=== PATIENT | male | born 1960 | race Caucasian/White ===

== ENCOUNTER → 2018-08-06 10:33 | Outpatient (CLI) | payer MEDICAID, SELFPAY ==
--- NOTE | 2018-08-06 13:39 | PFTCOMP ---
COMPLETE PULMONARY FUNCTION TEST INTERPRETATION Brief HPI: Patient is a 58 year old male, currently under the care of Laly Samaniego, who presents to [facility] for complete pulmonary function tests secondary to diagnosis of dyspnea. Respiratory therapist reports good effort and reproducible results. Interpretation: Forced expiration spirometry shows no large airways obstructive ventilatory defect with an FEV1 of 33% predicted. There is no significant bronchodilator response by strict ATS criteria. Spirograms are of good quality and plateau slowly, indicating slowly emptying areas of the lungs. The respiratory flow volume loop shows a normal pattern. Lung volumes by body plethysmography show a decreased total lung capacity at 4.31 L, 64% predicted. FRC and RV are elevated out of proportion. Lung volume measurements are consistent with air-trapping. Diffusion capacity by carbon monoxide is decreased at 55% predicted. The airway resistance is elevated. Compared to previous pulmonary function tests from 07/24/2017, there has been a significant improvement in spirometry. Impression: Very severe mixed ventilatory defect with a symmetric reduction diffusing capacity. There has been improvement compared to previous testing.
--- NOTE | 2018-08-06 13:44 | PFTCOMP_ITS ---
COMPLETE PULMONARY FUNCTION TEST INTERPRETATION Brief HPI: Patient is a 58 year old male, currently under the care of Laly Samaniego, who presents to [facility] for complete pulmonary function tests secondary to diagnosis of dyspnea. Respiratory therapist reports good effort and reproducible results. Interpretation: Forced expiration spirometry shows no large airways obstructive ventilatory defect with an FEV1 of 33% predicted. There is no significant bronchodilator response by strict ATS criteria. Spirograms are of good quality and plateau slowly, indicating slowly emptying areas of the lungs. The respiratory flow volume loop shows a normal pattern. Lung volumes by body plethysmography show a decreased total lung capacity at 4.31 L, 64% predicted. FRC and RV are elevated out of proportion. Lung volume measurements are consistent with air-trapping. Diffusion capacity by carbon monoxide is decreased at 55% predicted. The airway resistance is elevated. Compared to previous pulmonary function tests from 07/24/2017, there has been a significant improvement in spirometry. Impression: Very severe mixed ventilatory defect with a symmetric reduction diffusing capacity. There has been improvement compared to previous testing.
== END ==
PROVIDERS: Family Provider Family Medicine; PCP Family Medicine; Referring Provider Nurse Practitioner Acute Care; Visit Provider Nurse Practitioner Acute Care
DX: J44.9 Chronic obstructive pulmonary disease, unspecified (principal)
CPT/HCPCS: 94060; 94726; 94729

== ENCOUNTER → 2018-10-14 09:53 | Outpatient (CLI) | payer MEDICAID, SELFPAY ==
[2018-08-26 10:46] VITALS: BMI 28.4
--- NOTE | 2018-10-14 09:58 | VDLE_ITS ---
Reason For Study: BLE pain swelling L>R RIGHT LEFT CFV is compressible, spontaneous, phasic, CFV is compressible, spontaneous, phasic, competent and demonstrates normal competent, and demonstrates normal augmentation. augmentation. FV is compressible, spontaneous, phasic, FV is compressible, spontaneous, phasic, competent and demonstrates normal competent and demonstrates normal augmentation. augmentation. POP V is compressible, spontaneous, phasic, POP V is compressible, spontaneous, phasic, competent and demonstrates normal competent and demonstrates normal augmentation. augmentation. T/P Trunk is compressible. T/P Trunk is compressible. PTV is compressible. PTV is compressible. RT PerV is compressible. LT PerV is compressible. SFJ is competent. SFJ is competent. GSV is competent. GSV above the knee is competent; GSv below SSV is small; appears competent. knee is incompetent for > .5 seconds w/diameter of 0.21 x 0.28 cm. SSV is competent. Interpretation Summary 1. Bilateral no DVT or SVT. 2. Left below knee GSV small at 2.8mm with reflux. Ordering Physician: Javi Hidalgo Referring Physician: Moses Noonan Performed By: Molly Champagne RDCS, RVT
== END ==
PROVIDERS: Family Provider Family Medicine; PCP Family Medicine; Referring Provider Surgery Vascular Surgery; Visit Provider Surgery Vascular Surgery
DX: M79.89 Other specified soft tissue disorders (principal); M79.605 Pain in left leg; M79.604 Pain in right leg
CPT/HCPCS: 93970

== ENCOUNTER → 2019-02-24 | Outpatient (CLI) | payer MEDICARE, MEDICAID, SELFPAY ==
[2018-11-21 08:05] VITALS: BMI 28.4
--- NOTE | 2019-02-24 09:43 | VDLE_ITS ---
Reason For Study: Chronic Venous Insufficiency RIGHT LEFT CFV is compressible, spontaneous, phasic, CFV is compressible, spontaneous, phasic, competent and demonstrates normal competent, and demonstrates normal augmentation. augmentation. FV is compressible, spontaneous, phasic, FV is compressible, spontaneous, phasic, competent and demonstrates normal competent and demonstrates normal augmentation. augmentation. POP V is compressible, spontaneous, phasic, POP V is compressible, spontaneous, phasic, competent and demonstrates normal competent and demonstrates normal augmentation. augmentation. T/P Trunk is compressible. T/P Trunk is compressible. PTV is compressible. PTV is compressible. RT PerV is compressible. LT PerV is compressible. Rt SFJ is Competent Lt SFJ is Competent Rt GSV is Incompetent with reflux greater Lt GSV is Incompetent with reflux greater than 0.5 sec and measures 0.27cm x 0.32cm in than 0.5 sec and a diameter of 0.56cm x the thigh and 0.26cm x 0.30cm in the calf 0.52cm in the thigh and 0.29cm x 0.42cm in the calf Rt SSV is Competent Lt SSV is Competent Thickened vein raymond noted Rt GSV and Rt SSV Thickened vein raymond noted Lt GSV and Lt SSV Rt SSV distal mislabeled as CFV (Images 35 and 36). Lt SSV mislabeled as GSV (Images 67-73). Procedure Exam performed in department. A preliminary report was called and/or faxed to Dr. Hidalgo. Interpretation Summary 1. Bilateral no DVT. 2. Right GSV reflux 3.2mm. 3. Left GSV reflux 5.6mm. 4. Bilateral GSV and bilateral LSV thickened. Ordering Physician: Javi Hidalgo Referring Physician: Moses Noonan Performed By: Elaine Layton, CESILIA, RVT
== END | disposition home or self-care (01) ==
LOC: CVS 09:39
PROVIDERS: Family Provider Family Medicine; PCP Family Medicine; Referring Provider Surgery Vascular Surgery; Visit Provider Surgery Vascular Surgery
DX: M79.89 Other specified soft tissue disorders (principal); M79.604 Pain in right leg; M79.605 Pain in left leg
CPT/HCPCS: 93970

== ENCOUNTER → 2019-07-14 | Outpatient (CLI) | payer MEDICARE, MEDICAID, SELFPAY ==
[2018-11-21 08:05] VITALS: BMI 28.4
[2019-05-21 10:53] VITALS: BMI 28.4
[2019-07-14 09:23] VITALS: PULSE 63; PULSE 68; PULSE 78; PULSE 85; PULSE 87; PULSE 88; O2SAT 93; O2SAT 94; O2SAT 95; O2SAT 96
--- NOTE | 2019-07-14 13:41 | PCM.PSN.6M ---
PSN 6 Minute Walk Test - 6 Minute Walk Test 6 Minute Walk Test: 6 Minute Walk Test PSN:6-Minute Walk Test Start: 07/14/19 09:23 Freq: Status: Active Protocol: RESP.6MINW Document 07/14/19 09:23 MICHELLE (Rec: 07/14/19 09:25 MICHELLE [id number]) 6 Minute Walk Test Date Performed 07/14/19 Time Performed 09:10 Height 5 ft 9 in Weight: 193 lb Weight in Pounds 193.[address]: Robert Wiggins Assistive device used: None Pre-test Oxygen Delivery Method Room Air Pulse Ox (%) 94 Pulse Rate (60-100 beats/min) 63 Dyspnea Avtar Scale (0-10) 0 Exertion Avtar Scale (6-20) 6 1st minute Oxygen Delivery Method Room Air Pulse Ox (%) 95 Pulse Rate (60-100 beats/min) 78 2nd minute Oxygen Delivery Method Room Air Pulse Ox (%) 93 Pulse Rate (60-100 beats/min) 85 3rd minute Oxygen Delivery Method Room Air Pulse Ox (%) 93 Pulse Rate (60-100 beats/min) 85 4th minute Oxygen Delivery Method Room Air Pulse Ox (%) 93 Pulse Rate (60-100 beats/min) 88 5th minute Oxygen Delivery Method Room Air Pulse Ox (%) 94 Pulse Rate (60-100 beats/min) 88 6th minute Oxygen Delivery Method Room Air Pulse Ox (%) 95 Pulse Rate (60-100 beats/min) 87 Dyspnea Avtar Scale (0-10) 0 Exertion Avtar Scale (6-20) 12 Post-test Oxygen Delivery Method Room Air Pulse Ox (%) 96 Pulse Rate (60-100 beats/min) 68 Full Laps Walked 15 Partial Lap, Number of Tiles Walked 10 Total Distance Walked (ft) 895 - Interpretation Interpretation: The patient ambulated 895 feet over the course of 6 minutes beginning on room air without assistive devices or breaks. Pretesting oxygen saturation was noted to be 94% on room air. With ambulation, the cornell oxygen saturation was 93%. There was no significant exertional oxygen desaturation. - Recommendations Recommendations: There is no indication for the use of supplemental oxygen at this time.
== END | disposition home or self-care (01) ==
LOC: PSN 09:00
PROVIDERS: Family Provider Family Medicine; PCP Family Medicine; Referring Provider Internal Medicine Critical Care Medicine; Visit Provider Internal Medicine Critical Care Medicine
DX: J44.9 Chronic obstructive pulmonary disease, unspecified (principal)
CPT/HCPCS: 94618

== ENCOUNTER → 2019-07-15 | Outpatient (CLI) | payer MEDICARE, MEDICAID, SELFPAY ==
[2018-11-21 08:05] VITALS: BMI 28.4
[2019-05-21 10:53] VITALS: BMI 28.4
--- NOTE | 2019-07-16 09:35 | PFT ---
INTRODUCTION: The patient is a 59-year-old male that presents for pulmonary function studies secondary to a diagnosis of COPD. Respiratory therapy reports good patient effort. Bronchodilators were used during testing. INTERPRETATION: Forced expiration spirometry demonstrates the presence of a moderately severe large airways obstructive ventilatory defect. There was no significant response to aerosolized bronchodilators. Spirograms are of fair quality and do not plateau indicating slow emptying of the lungs. Body plethysmography was performed and reveals lung volumes to be within normal limits. Diffusing capacity by single breath CO is reduced at 62% of predicted. IMPRESSION: Irreversible moderately severe large airways obstructive ventilatory defect with preserved lung volumes and mild reduction in diffusing capacity. There has been improvement in the patient's pulmonary function study since they were last completed in July 2018.
== END | disposition home or self-care (01) ==
LOC: PSN 09:12
PROVIDERS: Family Provider Family Medicine; PCP Family Medicine; Referring Provider Internal Medicine Critical Care Medicine; Visit Provider Internal Medicine Critical Care Medicine
DX: J44.9 Chronic obstructive pulmonary disease, unspecified (principal)
CPT/HCPCS: 94060; 94726; 94729

== ENCOUNTER → 2020-03-23 | Outpatient (CLI) | payer MEDICARE, MEDICAID, SELFPAY ==
[2019-07-18 09:06] VITALS: BMI 31.0
== END | disposition home or self-care (01) ==
PROVIDERS: PCP Family Medicine; Referring Provider Nurse Practitioner Acute Care; Visit Provider Nurse Practitioner Acute Care
DX: R05 Cough (principal)
CPT/HCPCS: 87635; G2023; U0003

== ENCOUNTER → 2020-07-19 | Outpatient (CLI) | payer MEDICARE, MEDICAID, SELFPAY ==
[2020-07-19 11:31] VITALS: BMI 33.2
== END | disposition home or self-care (01) ==
LOC: LABSPEC 12:56
PROVIDERS: PCP Family Medicine; Referring Provider Nurse Practitioner Acute Care; Visit Provider Nurse Practitioner Acute Care
DX: F17.210 Nicotine dependence, cigarettes, uncomplicated (principal)
CPT/HCPCS: 87070; 87205

== ENCOUNTER → 2020-07-23 | Outpatient (CLI) | payer MEDICARE, MEDICAID, SELFPAY ==
[2020-07-19 11:31] VITALS: BMI 33.2
--- NOTE | 2020-07-23 15:00 | CT_ITS ---
STUDY: LOW DOSE CT LUNG CANCER SCREENING REASON FOR EXAM: Male, 60 years old. SMOKER X 30 PLUS YEARS. 1-2 PACKS A DAY RADIATION DOSAGE (If Supplied By Facility): CTDIvol = ( 4.02 ) mGy, DLP = ( 129.38 ) mGycm TECHNIQUE: No contrast was administered. Low dose technique was utilized (average mAS-38 and kVp 120). 1.25 mm axial source images with a slice interval of 1.25-mm were reconstructed in lung windows. 2.5 mm axial source images with a slice interval of 2.5-mm were reconstructed in lung windows. 5.0 mm axial source images with a slice interval of 5.0-mm were reconstructed in soft tissue windows. Nodule measured using lung windows on PACS and/or independent workstation with automated measurement of minimum and maximum diameter. Nodule measurement reported as average diameter rounded to the nearest whole number. Growth is defined as an increase ins size of greater than 1.5 mm. COMPARISON: 15 June 2017, May 19 2017, December 08 2016, May 10 2016, April 26 2016 Findings: There are small bilateral pleural effusions and right lower lobe consolidation, similar to prior, likely chronic fibrotic atelectasis. There is similar elongated peripheral subpleural right upper lobe chronic atelectatic opacity. There are no focal high risk findings. Central airways are patent. Mediastinal contents are suboptimally evaluated due to screening CT technique. Coronary arteries are severely diseased. Osseous structures are intact. There is compression fracture of T12 with anterior wedging deformity. This is not sufficiently well evaluated for chronologic staging. CT/Low Dose CT Lung Screening IMPRESSION: 1. No high risk pulmonary nodules. Lung RADS category 2. 2. Bilateral presumably chronic pleural effusions, chronic right basal consolidation, possibly atelectasis. 3. Recommend a diagnostic CT chest with IV contrast for more definitive evaluation given presence of intrathoracic disease. Screening exams are only sufficient for evaluation of chronically stable asymptomatic patients. 4. Severe coronary artery disease. 5. T12 compression fracture, unknown age. Refer to diagnostic imaging. IMPORTANT NOTES FOR USE: ACR Lung-RADS Version 1.0 Assessment Categories Release Date: February 02, 2014 Category: Coded 0-4 bases on nodule(s) with highest degree of suspicion. Negative screen is defined as categories 1 and 2; a positive screen is defined as categories 3 and 4. Category 3 and 4A nodules that are unchanged on interval CT should be coded as category 2, and individuals returned to screening in 12 months. Category 4X: Category 3 or 4 nodules with additional imaging findings that increase the suspicion of lung cancer, such as spiculation, GGN that doubles in size in 1 year, enlarged lymph notes, etc. Category Modifiers: S (significant finding unrelated to lung cancer) and C (prior history of treated lung cancer) may be added to the 0-4 Lung-RADS Electronically Signed: Emani Hope, at 16:17 EDT Tel , Service support ,
== END | disposition home or self-care (01) ==
LOC: CT 14:35
PROVIDERS: PCP Family Medicine; Referring Provider Nurse Practitioner Acute Care; Visit Provider Nurse Practitioner Acute Care
DX: F17.210 Nicotine dependence, cigarettes, uncomplicated (principal); Z12.2 Encounter for screening for malignant neoplasm of respiratory organs
CPT/HCPCS: G0297

== ENCOUNTER → 2020-07-28 | Outpatient (CLI) | payer MEDICARE, MEDICAID, SELFPAY ==
[2020-07-19 11:31] VITALS: BMI 33.2
--- NOTE | 2020-07-28 09:44 | MRI_ITS ---
STUDY: MRI LUMBAR SPINE WITHOUT CONTRAST REASON FOR EXAM: Male, 60 years old. Back pain spondylosis, pain with walking and standing TECHNIQUE: Standardized fat and water weighted pulse sequences were obtained in the sagittal and axial planes. COMPARISON: None FINDINGS: There is a chronic T12 fragmentation/compression fracture with anterior wedging deformity and ventral vertebra planum with approximately 50% loss of height dorsally. Posterior cortex is intact without retropulsion. There are expected age-related disc and endplate degenerative changes. Thoracal lumbar spine is aligned. Lumbar spine is intact. Diffuse marrow, paraspinous soft tissues and SI joints are normal. BMI is elevated. Conus medullaris terminates at T12-L1 with normal cauda equina and patent thecal sac. Lateral recesses are patent. There are bilateral multilevel mild foraminal stenoses. MRI/Spine Lumbar (Routine) IMPRESSION: 1. Chronic T12 compression fracture without canal compression. 2. Intact lumbar spine. 3. Patent Canal, no neural compression. 4. Expected mild age-related change. Electronically Signed: Brittanykristen Jayy, at 13:22 EDT Tel , Service support ,
== END | disposition home or self-care (01) ==
LOC: MRI 09:29
PROVIDERS: PCP Family Medicine; Referring Provider Anesthesiology Pain Medicine; Visit Provider Anesthesiology Pain Medicine
DX: M51.37 Other intervertebral disc degeneration, lumbosacral region (principal); M47.817 Spondylosis without myelopathy or radiculopathy, lumbosacral region; M54.9 Dorsalgia, unspecified
CPT/HCPCS: 72148

== ENCOUNTER → 2020-08-03 | Outpatient (CLI) | payer MEDICARE, MEDICAID, SELFPAY ==
[2020-08-03 13:35] VITALS: BMI 33.3
[2020-08-03 15:48] LABS: Absolute Lymphocyte Count 0.85 X10^3/uL (0.83-4.51); Absolute Neutrophil Count 7.7 X10^3/uL (2.0-7.7); Basophil# 0.04 X10^3/uL; Basophil% 0.4 % (0-1); Eosinophil# 0.07 X10^3/uL; Eosinophils% 0.8 % (0-5); Hematocrit 54.7 % (40-54); Hemoglobin 16.9 g/dL (13.0-16.5); Lymphocyte # 0.85 X10^3/ul (4.0); Lymphocyte % 9.3 % (19-41); Mean Corp Hgb Conc 30.9 g/dL (32-36); Mean Corpuscular Hgb 28.8 pg (27.0-32.0); Mean Corpuscular Volume 93.2 fL (80-94); Mean Platelet Vol. 10.4 fl (6.2-12.0); Monocyte# 0.44 X10^3/uL; Monocyte% 4.8 % (0-10); NRBC Flagged by Analyzer 0 % (0-5); Neutrophil # 7.71 X10^3/uL (2.7-7.7); Neutrophil % 84.3 % (47-70); Platelet Count 176 K/mm3 (150-450); RBC Distribution Width CV 13.4 % (11.6-14.6); RBC Distribution Width SD 46.3 fl (35.1-43.9); Red Blood Count 5.87 M/mm3 (4.6-6.2); White Blood Count 9.2 K/mm3 (4.4-11.0)
[2020-08-03 15:56] LABS: Prothrombin Time (Protime)PT. 12.6 SECONDS (11.7-14.9)
[2020-08-03 16:28] LABS: AST(SGOT) 14 U/L (15-37); Alanine Aminotransfer ALT/SGPT 21 U/L (16-61); Albumin, Serum 3.5 g/dL (3.2-5.0); Alkaline Phosphatase 65 U/L (45-117); Anion Gap 3 (5-15); BUN 16 mg/dL (7-18); BUN/Creat Ratio 21.6 RATIO (10-20); Calcium,Total 8.8 mg/dL (8.5-10.1); Chloride 102 mmol/L (98-107); Creatinine, Serum 0.74 mg/dL (0.70-1.30); EST Glomerular Filtration Rate 115 mL/min (>60); Est Glom Filt Rate - Afr Amer 139 mL/min (>60); Globulin 3.6 g/dL (2.2-4.2); Glucose 97 mg/dL (74-106); Potassium 4.4 mmol/L (3.5-5.1); Protein, Total 7.1 g/dL (6.4-8.2); Sodium Level 138 mmol/L (136-145)
== END | disposition home or self-care (01) ==
LOC: LAB 14:58
PROVIDERS: PCP Family Medicine; Visit Provider Specialist
DX: I10 Essential (primary) hypertension (principal); J90 Pleural effusion, not elsewhere classified; R94.39 Abnormal result of other cardiovascular function study
CPT/HCPCS: 36415; 80053; 85025; 85610

== ENCOUNTER 2020-08-05 07:12 | Day surgery (SDC) | payer MEDICARE, MEDICAID, SELFPAY ==
[2020-08-03 13:35] VITALS: BMI 33.3
[2020-08-04 09:43] VITALS: BMI 33.3
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
--- NOTE | 2020-08-05 10:45 | CL.D_ITS ---
Patient Name: KELVIN ROBLES Study Date: 08/05/2020 Performing: Macario Edmondson MD Ht: 68.89 inches 175 cm : 1960 Wt: 227.08 lbs 103 kg Age: 60 Gender: male BSA: 2.18 PROCEDURE(S) PERFORMED RM85-PWK/COR/LV CLINICAL PROFILE AND INDICATIONS Indications: Worsening Angina Heart Failure: None Stress/Imaging Stress Test w/SPECT MPI: Yes Result: Positive Intermediate RiskStress Test with SP ECT MPI: Positive Intermediate Risk CAD Presentations: Unstable angina. CONCLUSIONS No significant angiographic CAD. Preserved EF. No significant or MR RECOMMENDATIONS DESCRIPTION OF PROCEDURE The patient arrived to the procedure lab. The risks and benefits of the procedure as well as a full d escription of our services here and current unavailability of surgical backup were fully explained to the patient and/or their significant other prior to the catheterization. The Timeout was completed, verifying the correct patient and procedure. The patient's procedural site was prepped and draped in the usual fashion. Local anesthetic was given subcutaneously to right radial region with Lidocaine 2% . Using a modified Seldinger technique, arterial access was obtained via the right radial artery, a 6 Fr sheath was inserted. Left Coronary Artery selective angiography was performed in multiple views u sing a 5 Fr. FL3.5 catheter. Left Ventriculography was performed in [place] projection using a 5 Fr. FR4. Right Coronary Artery selective angiography was then performed in multiple views using a 5 Fr. FR 4 catheter.The arterial sheath was pulled and a TR Band was applied for hemostasis w/ 12ml air CORONARY ANGIOGRAPHY DOMINANCE: Right Dominant LEFT HEART ASSESSMENT Left Ventricular Ejection Fraction: by LV Gram 55 % Normal LV wall motion LEFT MAIN: No significant disease noted LEFT ANTERIOR DESCENDING ARTERY: No significant disease noted CIRCUMFLEX ARTERY: No significant disease noted RIGHT CORONARY ARTERY: No significant disease noted VALVE FINDINGS: No Aortic Valve Stenosis No Mitral Insufficiency COMPLICATIONS No Complications PROCEDURE MEDICATIONS Versed 1 mg IV Fentanyl 50 mcg IV Versed 1 mg IV Oxygen: 2 L/min via nasal cannula Heparin given IA 08/05/2020 09:09:00 Verapamil 2.5mg, Ntg 100mcgs, 3000 units of Heparin given IA 08/05/2020 09:09:00 SUMMARY OF HEMODYNAMIC DATA Time AIR REST ECG 08:51:23 AO 99/61 (78) SA 09:12:00 LV 132/-3, 13 09:19:55 LV 132/-2, 12 09:20:01 LV 124/-6, 10 09:21:14 LVp 134/3, 15 09:21:47 AOp 125/71 (91) 09:21:52 Signed By Macario Edmondson MD On 08/05/2020 10:44:49 Macario Edmondson MD
== END 2020-08-05 11:30 | disposition home or self-care (01) ==
PROVIDERS: PCP Family Medicine; Referring Provider Specialist; Visit Provider Specialist
DX: I20.0 Unstable angina (principal); R07.9 Chest pain, unspecified; R94.39 Abnormal result of other cardiovascular function study; I10 Essential (primary) hypertension; J44.9 Chronic obstructive pulmonary disease, unspecified; K21.9 Gastro-esophageal reflux disease without esophagitis; Z79.51 Long term (current) use of inhaled steroids; Z79.82 Long term (current) use of aspirin; Z79.899 Other long term (current) drug therapy; Z87.891 Personal history of nicotine dependence
CPT/HCPCS: 93458; 99152; 99153; J7040; Q9967; C1769; C1894

== ENCOUNTER → 2020-09-16 09:45 | Outpatient (CLI) | payer MEDICARE, MEDICAID, SELFPAY ==
[2020-09-08 14:09] VITALS: BMI 34.1
--- NOTE | 2020-09-16 09:46 | ART_ITS ---
Reason For Study: atherosclerosis Procedure A bilateral lower extremity continuous wave Doppler with analog waveform analysis and ankle brachial indexes. Left Segmental Pressures Left brachial= 138mmHg. Left posterior tibial artery = 85mmHg. Left dorsalis pedis artery = 67mmHg. The left dorsalis pedis waveforms are monophasic. The left posterior tibial artery waveforms are monophasic. Right Segmental Pressures Right brachial= 140mmHg. Right posterior tibial artery = 103mmHg. Right dorsalis pedis artery = 90mmHg. The right dorsalis pedis waveforms are monophasic. The right posterior tibial artery waveforms are monophasic. Indices The right ankle brachial index by the dorsalis pedis is .64. The right ankle brachial index by the posterior tibial artery is .74. The left ankle brachial index by the posterior tibial artery is .61. The left ankle brachial index by the dorsalis pedis is .48. Interpretation Summary Bilateral moderate disease eith JOI right 0.74 and left 0.61 with both biphasic flow. Ordering Physician: Javi Hidalgo Performed By: Molina English RVT and Student
== END ==
PROVIDERS: PCP Family Medicine; Referring Provider Surgery Vascular Surgery; Visit Provider Surgery Vascular Surgery
DX: I70.213 Atherosclerosis of native arteries of extremities with intermittent claudication, bilateral legs (principal); I83.893 Varicose veins of bilateral lower extremities with other complications; G62.9 Polyneuropathy, unspecified; M79.89 Other specified soft tissue disorders; M79.609 Pain in unspecified limb
CPT/HCPCS: 93922

== ENCOUNTER → 2021-04-05 10:40 | Outpatient (CLI) | payer MEDICARE, MEDICAID, SELFPAY ==
[2021-02-10 09:39] VITALS: BMI 36.3
--- NOTE | 2021-04-06 09:39 | PFT ---
INTRODUCTION: The patient is a 60-year-old male that presents for pulmonary function studies secondary to a diagnosis of COPD. Respiratory therapy reported good patient effort. Bronchodilators were used during testing. INTERPRETATION: Forced expiration spirometry demonstrates the presence of a severe large airways obstructive ventilatory defect. There was no significant response to aerosolized bronchodilators. Spirograms are of good quality and plateau gradually indicating slow emptying of the lungs. Body plethysmography was performed and revealed a decreased TLC to 3.81 L, 61% of predicted, indicative of a moderate restrictive ventilatory impairment. The remainder of the lung volumes are symmetrically reduced. Diffusing capacity by single breath CO is reduced to 51% of predicted. IMPRESSION: Irreversible severe mixed ventilatory defect with symmetric reduction in diffusing capacity.
== END ==
PROVIDERS: PCP Family Medicine; Referring Provider Internal Medicine Critical Care Medicine; Visit Provider Internal Medicine Critical Care Medicine
DX: J44.9 Chronic obstructive pulmonary disease, unspecified (principal)
CPT/HCPCS: 94060; 94726; 94729

== ENCOUNTER → 2021-04-15 12:16 | Outpatient (CLI) | payer MEDICARE, MEDICAID, SELFPAY ==
[2021-02-10 09:39] VITALS: BMI 36.3
[2021-04-15 12:51] VITALS: PULSE 103; PULSE 106; PULSE 108; PULSE 112; PULSE 114; PULSE 74; PULSE 86; O2SAT 85; O2SAT 86; O2SAT 89; O2SAT 92; O2SAT 93; O2SAT 96
--- NOTE | 2021-04-15 12:54 | CPS ---
Patient states that he wears oxygen at night. He has a concentrator and tanks at home but does not wear oxygen during the day. He also has a pulse oximeter at home and will periodically check his SpO2. Started walk on room air, SpO2 93-95%. At the 3rd minute SpO2 85%, stopped patient at this time to place on 2 lpm O2 but patient did not want to wear the oxygen since his SpO2 started climbing back towards normal. I explained to the patient the importance of wearing it so his SpO2 does not drop below 89% but he wanted to continue walking on room air as his SpO2 was now 96%. At about 5.5 minutes SpO2 87% and was 86% at the end of the 6 minutes. Patient did recover quickly but was once again explained the importance of preventing his SpO2 to drop.
--- NOTE | 2021-04-15 15:24 | WT_ITS ---
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 Assistive device used: None Pre-test Oxygen Delivery Method Room Air Pulse Ox (%) 93 Pulse Rate (60-100 beats/min) 74 Dyspnea Avtar Scale (0-10) 2 Exertion Avtar Scale (6-20) 6 1st minute Oxygen Delivery Method Room Air Pulse Ox (%) 93 Pulse Rate (60-100 beats/min) 103 H 2nd minute Oxygen Delivery Method Room Air Pulse Ox (%) 89 Pulse Rate (60-100 beats/min) 106 H 3rd minute Oxygen Delivery Method Room Air Pulse Ox (%) 85 Pulse Rate (60-100 beats/min) 112 H 4th minute Oxygen Delivery Method Room Air Pulse Ox (%) 92 Pulse Rate (60-100 beats/min) 108 H 5th minute Oxygen Delivery Method Room Air Pulse Ox (%) 89 Pulse Rate (60-100 beats/min) 112 H 6th minute Oxygen Delivery Method Room Air Pulse Ox (%) 86 Pulse Rate (60-100 beats/min) 114 H Dyspnea Avtar Scale (0-10) 4 Exertion Avtar Scale (6-20) 13 Post-test Oxygen Delivery Method Room Air Pulse Ox (%) 96 Pulse Rate (60-100 beats/min) 86 Full Laps Walked 13 Partial Lap, Number of Tiles Walked 15 Total Distance Walked (ft) 782 04/15/21 12:54 Cardiopulmonary Services by Ivet Grossman Patient states that he wears oxygen at night. He has a concentrator and tanks at home but does not wear oxygen during the day. He also has a pulse oximeter at home and will periodically check his SpO2. Started walk on room air, SpO2 93- 95%. At the 3rd minute SpO2 85%, stopped patient at this time to place on 2 lpm O2 but patient did not want to wear the oxygen since his SpO2 started climbing back towards normal. I explained to the patient the importance of wearing it so his SpO2 does not drop below 89% but he wanted to continue walking on room air as his SpO2 was now 96%. At about 5.5 minutes SpO2 87% and was 86% at the end of the 6 minutes. Patient did recover quickly but was once again explained the importance of preventing his SpO2 to drop. Initialized on 04/15/21 12:54 - END OF NOTE Interpretation Interpretation: The patient was noted to be 93% on room air at rest. The patient did desaturate to 85% in the third minute of ambulation, but refused supplemental oxygen. Patient did improve to 96% after a brief break, but once again desaturated to 86% by the 6-minute keegan. In total, the patient traveled 782 feet over the course of 6 minutes on room air with no assistive devices, but 1 break. These findings are consistent with a respiratory limitation exercise tolerance. Recommendations Recommendations: Patient requires no supplemental oxygen at rest, but should be using at least 2 L nasal cannula with exertion.
== END ==
PROVIDERS: PCP Family Medicine; Referring Provider Internal Medicine Critical Care Medicine; Visit Provider Internal Medicine Critical Care Medicine
DX: J44.9 Chronic obstructive pulmonary disease, unspecified (principal)
CPT/HCPCS: 94618

== ENCOUNTER → 2022-06-09 | Outpatient (CLI) | payer MEDICARE, MEDICAID, SELFPAY ==
--- NOTE | 2022-06-09 09:59 | RAD_ITS ---
STUDY: X-RAY CHEST REASON FOR EXAM: Male, 61 years old. MCCORMICK TECHNIQUE: PA and lateral views of the chest. COMPARISON: Comparison is made with prior study dated 10/04/2017. FINDINGS: Hyperinflation. Progressive pleural parenchymal changes at the right lung base as compared to prior study. Stable blunting of the left cosmetic angle with increased markings at the left lung base suggestive of scarring. Normal size heart. Normal mediastinum and kacey. Normal visualized pulmonary arteries. There is atherosclerotic calcification of the aortic arch with tortuosity. There are diffuse degenerative changes of the visualized thoracic spine. Increased kyphosis healed right rib fractures. There is no demonstrated abnormality of the visualized soft tissue structures of the upper abdomen. RAD/Chest PA and Lateral IMPRESSION: Progressive pleural parenchymal changes at the right lung base as compared to prior study. Electronically Signed: Lc Boucher MD at 10:43 EDT ,
[2022-06-09 11:37] LABS: Absolute Lymphocyte Count 1.26 X10^3/uL (0.83-4.51); Absolute Neutrophil Count 5.7 X10^3/uL (2.0-7.7); Basophil# 0.08 X10^3/uL; Eosinophil# 0.27 X10^3/uL; Eosinophils% 3.4 % (0-5); Hemoglobin 16.1 g/dL (13.0-16.5); Lymphocyte # 1.26 X10^3/ul (0.83-4.51); Lymphocyte % 16.1 % (19-41); Mean Corp Hgb Conc 31.6 g/dL (32-36); Mean Corpuscular Hgb 29.5 pg (27.0-32.0); Mean Corpuscular Volume 93.6 fL (80-94); Mean Platelet Vol. 10.3 fl (6.2-12.0); Monocyte# 0.52 X10^3/uL; Monocyte% 6.6 % (0-10); NRBC Flagged by Analyzer 0 % (0-5); Neutrophil # 5.68 X10^3/uL (2.7-7.7); Neutrophil % 72.4 % (47-70); Platelet Count 201 K/mm3 (150-450); RBC Distribution Width CV 12.5 % (11.6-14.6); RBC Distribution Width SD 42.6 fl (35.1-43.9); Red Blood Count 5.45 M/mm3 (4.6-6.2); White Blood Count 7.9 K/mm3 (4.4-11.0)
[2022-06-09 12:06] LABS: Anion Gap 4 (5-15); BUN 11 mg/dL (7-18); BUN/Creat Ratio 14.8 RATIO (10-20); Chloride 99 mmol/L (98-107); Creatinine, Serum 0.74 mg/dL (0.70-1.30); EST Glomerular Filtration Rate 114 mL/min (>60); Est Glom Filt Rate - Afr Amer 138 mL/min (>60); Glucose 95 mg/dL (74-106); Potassium 4.4 mmol/L (3.5-5.1); Sodium Level 140 mmol/L (136-145)
[2022-06-09 12:08] LABS: BNP,B-Type NATRIURETIC PEPTIDE 28.4 pg/mL (0-100)
== END | disposition home or self-care (01) ==
PROVIDERS: PCP Student in an Organized Health Care Education/Training Program; Referring Provider Nurse Practitioner Gerontology; Visit Provider Nurse Practitioner Gerontology
DX: R06.00 Dyspnea, unspecified (principal)
CPT/HCPCS: 36415; 71046; 80048; 83880; 85025

== ENCOUNTER → 2022-06-28 | Outpatient (CLI) | payer MEDICARE, MEDICAID, SELFPAY ==
--- NOTE | 2022-06-28 08:02 | ECHOCS_ITS ---
Reason For Study: Dyspnea/SOB Procedure This was a 2D Doppler, Color Flow transthoracic echocardiogram. Very technically difficult study, contrast injection performed. Patient needed to be sitting up for testing due to SOB. Limited views obtained. The study was technically difficult. Contrast injection was performed. Exam performed in department. Left Ventricle Based upon the contrast enhanced images obtained there appears to be grossly normal left ventricular size, wall motion, and systolic function. The estimated ejection fraction is 55 %. Unable to assess diastolic dysfunction. Right Ventricle Right ventricle is not well visualized. Atria The left atrium is not well visualized. The right atrium is not well visualized. The atrial septum was not well visualized. Mitral Valve Mitral valve not well visualized. Tricuspid Valve The tricuspid valve is not well visualized. Aortic Valve The aortic valve is not well visualized. Pulmonic Valve The pulmonic valve is not well visualized. Great Vessels The aortic root is not well visualized. Pericardium/Pleural No pericardial effusion. Medication 20 gauge I.V. with prn adaptor inserted into right arm. Diluted definity 1.5ml given slow IV push to enhance endocardial definition. Doppler Measurements & Calculations Lat Peak E' Terry: 10.5 cm/sec Med Peak E' Terry: 6.6 cm/sec MV V2 max: 133.7 cm/sec MV max P.1 mmHg MV V2 mean: 73.7 cm/sec MV mean P.7 mmHg MV V2 VTI: 28.3 cm MV P1/2t max terry: 99.5 cm/sec Ao V2 max: 141.8 cm/sec LV V1 max: 123.9 cm/sec MV P1/2t: 73.6 msec Ao max P.0 mmHg LV V1 max P.1 mmHg MV dec slope: 395.9 cm/sec2 MVA(P1/2t): 3.0 cm2 ECHO/Echo Complete W/ Contrast Interpretation Summary The study was technically difficult. Contrast injection was performed. Based upon the contrast enhanced images obtained there appears to be grossly no rmal left ventricular size, wall motion, and systolic function. The estimated ejection fraction is 55 %. Unable to assess diastolic dysfunction. Ordering Physician: Cami Hendrickson Referring Physician: Eulalio Carrera Performed By: Mundo Keene RCS
== END | disposition home or self-care (01) ==
LOC: CVS 08:01
PROVIDERS: PCP Student in an Organized Health Care Education/Training Program; Referring Provider Nurse Practitioner Gerontology; Visit Provider Nurse Practitioner Gerontology
DX: R06.02 Shortness of breath (principal); I49.1 Atrial premature depolarization
CPT/HCPCS: 93225; 93226; 93306; Q9957; A4216; C8929

== ENCOUNTER 2022-07-05 08:37 | Outpatient (RCR) | payer MEDICARE, MEDICAID, SELFPAY ==
[2022-07-05 09:24] VITALS: BP 141/73; PULSE 93; RESP 22; BMI 38.1
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
== END 2022-07-07 23:59 | disposition home or self-care (01) ==
LOC: WC 08:37
PROVIDERS: PCP Student in an Organized Health Care Education/Training Program; Visit Provider Nurse Practitioner Family
DX: I83.018 Varicose veins of right lower extremity with ulcer other part of lower leg (principal); L97.812 Non-pressure chronic ulcer of other part of right lower leg with fat layer exposed; J44.9 Chronic obstructive pulmonary disease, unspecified; I10 Essential (primary) hypertension; F17.210 Nicotine dependence, cigarettes, uncomplicated; Z79.51 Long term (current) use of inhaled steroids; G62.9 Polyneuropathy, unspecified; Z79.899 Other long term (current) drug therapy; G47.33 Obstructive sleep apnea (adult) (pediatric)
CPT/HCPCS: 11042; 99213; G0463

== ENCOUNTER 2022-08-07 09:30 | Outpatient (RCR) | payer MEDICARE, MEDICAID, SELFPAY ==
[2022-07-08 01:50] VITALS: BP 141/73; PULSE 93; RESP 22; BMI 38.1
[2022-07-17 09:50] VITALS: BP 149/87; PULSE 73; RESP 22; TEMP 36.1; BMI 38.1
--- NOTE | 2022-07-17 11:22 | PCM.WC.PN ---
History of Present Illness Date of Service: 07/17/22 Chief Complaint: Right lateral leg ulcer History of Wound: 62 year old male presents with a non healing ulcer on his right lateral leg that he bumped it awhile ago. He has had a venous procedure by Dr. Hidalgo not too long ago. He wears oxygen and states that he is trying to quit smoking, he states he smokes a couple per day now, some days he doesn't smoke at all. He has a significant cardiac and respiratory history. He is a poor historian. Wound care - Santyl nickel thickness covered with gauze daily or every other day. Tubigrip for compression. Today he denies fever, chills, nausea or vomiting. He states he has a good appetite. Progress of Wound: Right lateral leg ulcer is stable. Patient has not been doing daily dressing changes. He states he has changed his dressing once this past week. Patient does not have a shower and I do not want him soaking in water. He has difficulty doing the dressing changes and has not been wearing his compression. Objective Data Objective Data Vital Signs: Vital Signs Temp Pulse Resp BP O2 Flow Rate 97 F L 73 22 H 149/87 H 2 07/17/22 09:50 07/17/22 09:50 07/17/22 09:50 07/17/22 09:50 07/17/22 09:50 Oxygen Flow Rate (L/min) 2 Weight: 243 lb 11.572 oz Body Mass Index (BMI) 38.1 Charges/Coding Procedures Integumentary 111xxx-113xx: 82840 Shari subq tissue 20 sq cm/< Physical Exam Const alert and oriented x3 Orientation / Consciousness: awake HEENT normocephalic Eyes PERRL Lymph Lymphatic: no lymphedema noted Resp Effort and Inspection: able to speak in complete sentences Cardio regular rate Extremity normal capillary refill Extremity Narrative: +2 pitting edema left lower extremity General Extremity: edema Peripheral Pulses: Yes dorsalis pedis pulses present Skin Wound Narrative: Left lateral leg ulcer with fibrous nogueira tissue on the base of the ulcer. Neuro oriented x3 Psych mental status grossly normal Debridement Note Debridement Note Wound debrided: lateral leg ulcer Laterality: Right Type of Debridement: Excisional debridement Anesthesia Used: 5% Lidocaine Gel Depth: Down to and including healthy tissue and in the subcutaneous layer Percentage of wound debrided: 100 Instrument Used: 5mm curette Tissue Removed: Devitalized tissue and slough Severity: Fat Layer Exposed Amount of bleeding with debridement: Mild Bleeding Controlled with: Compression and gauze Patient tolerated procedure: Patient tolerated procedure well Post-Debridement Measurements and Additional Note: Post-Debridement Measurements/Treatment WC - Nurse 1 - General Ulcer Assessment Start: 07/17/22 09:48 Freq: Status: Active Protocol: MARYLU Activity Type Activity Date Activity User E-sign Co-sign Detail Recorded Client Recorded Date Recorded By Document 07/17/22 09:50 DL [id number] 07/17/22 09:56 DL 07/17/22 09:50 WC - Today's Visit Information Type of service 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 ) Arrival Mode Ambulatory Transfer Assistance None Patient Identification Verified (Name & Yes ) Patient Requires Transmission-Based No Precautions Height and Weight Body Mass Index (BMI) 38.1 BMI Classification Obese Vital Signs Temperature (97.8 F-99.1 F) 97 F L Temperature Source Temporal Pulse Rate (60-100) 73 Pulse Location Monitor Respiratory Rate (12-18) 22 H Respiratory rate source Observation O2 L/MIN (L/min) 2 Blood Pressure (90/60-120/80) 149/87 H Blood Pressure Mean (mm Hg) 107 Source Monitor History Since Last Visit- (Skip if this is Patient's initial visit) Have you changed medications since your No last visit? Any new allergies or adverse reactions No Had a fall/change in ADL's that may No increase risk of falls Signs or symptoms of abuse and/or No neglect since last visit Have you been in the hospital since your No last visit? Has dressing in place as prescribed Yes Has compression in place as prescribed No Has offloadiing in place as prescribed N/A Experienced any changes in pain level or No management Pain Scale: 0-10 Numeric Is Patient Pain Free? Yes - Nurse 1 - General Ulcer Measurement Start: 07/17/22 09:48 Freq: Status: Active Protocol: Activity Type Activity Date Activity User E-sign Co-sign Detail Recorded Client Recorded Date Recorded By Document 07/17/22 09:50 DL [id number] 07/17/22 09:56 DL Document 07/17/22 09:57 DL [id number] 07/17/22 09:57 DL 07/17/22 07/17/22 09:50 09:57 Wound Center Nurse 1 #1 R Lat LE -Current Size (cm) - Length 4.3 -Current Size (cm) - Width 1.6 -Current Size (cm) - Depth 0.2 -Total Square Cm 6.88 -Exudate Amt Medium -Exudate Type Serosanguineous -Wound Margin Distinct, Outline Attached -Granulation Amt Small (1-33%) -Granulation Quality [place] -Necrosis Amt Large (67-100%) -Necrotic Tissue Type Adherent Slough -Texture (Alyson-wound Skin Appearance) Assessed, Scarring -Moisture (Alyson-wound Skin Appearance) No Abnormality, Assessed -Color (Alyson-wound Skin Appearance) No Abnormality, Assessed -Temperature (Alyson-wound Skin No Abnormality Appearance) (Pt Warm) -Tenderness on Palpation (Alyson-wound No Skin Appearance) -Ulcer Cleansing Rinsed/ Irrigated with Saline -Foul Odor after Cleansing No -Anesthetic Used 5% Lidocaine Gel Right Calf (cm) 41.3 Right Ankle (cm) 24.5 WC - Nurse 2 - General Ulcer CM Notes Start: 07/17/22 09:48 Freq: Status: Active Protocol: Activity Type Activity Date Activity User E-sign Co-sign Detail Recorded Client Recorded Date Recorded By Document 07/17/22 10:08 NUNU [id number] 07/17/22 10:16 NUNU 07/17/22 10:08 Wound Center Nurse 2 #1 R Lat LE -Time 10:09 -Correct Patient Yes -Correct Side, Site, Position Yes -Correct Procedure Yes -Procedure Performed Yes -Type of Procedure Debridement -Clinical Debridement Subcutaneous -Tissue Removed Subcutaneous -Post Debridement (cm) - Length 4.4 -Post Debridement (cm) - Width 2.0 -Post Debridement (cm) - Depth 0.2 -Total Square (Post) (cm) 8.80 -Area of Debridement (cm) - Length 4.4 -Area of Debridement (cm) - Width 2.0 -Total Square (Area) (cm) 8.80 -Tunneling No -Undermining/Tunneling No -Circular Undermining No -Wound/Ulcer Outcome Not Healed -Ulcer Cleansing Rinsed/ Irrigated with Saline -Foul Odor after Cleansing No -Bioengineered Tissue No -Bleeding Controlled with Pressure -Treatment Response Procedure Tolerated Well -Offloading No -Debridement - Subq, 1st 20sq cm Yes Pain Scale: 0-10 Numeric Is Patient Pain Free? Yes WC - Nurse 3 - General Ulcer D/C NN Start: 07/17/22 09:48 Freq: Status: Active Protocol: Activity Type Activity Date Activity User E-sign Co-sign Detail Recorded Client Recorded Date Recorded By Document 07/17/22 10:40 DL [id number] 07/17/22 10:42 DL 07/17/22 10:40 Wound Care Nurse 3 #1 R Lat LE -Ulcer Cleansing Rinsed/ Irrigated with Saline -Foul Odor after Cleansing No -Other Dressing hydrogel today in clinic -Primary Dressing Covered/Secured with Dry Gauze & Roll Gauze, Secured with Tape Left -Tubular Bandage Single Layer -Size of Tubigrip Used Size E -Size E ($) 1 Right -Tubular Bandage Single Layer -Size of Tubigrip Used Size E -Size E ($) 1 Treatment Response Procedure Tolerated Well Pain Scale: 0-10 Numeric Is Patient Pain Free? Yes WC - Visit Discharge Discharge Condition Stable Ambulatory Status Ambulatory Transportation Private Auto Assessment/Plan Assessment/Plan (1) Ulcer of right lower extremity with fat layer exposed: CODE(S): L97.912 - Non-pressure chronic ulcer of unspecified part of right lower leg with fat layer exposed (2) Venous ulcer of right leg: CODE(S): I83.019 - Varicose veins of right lower extremity with ulcer of unspecified site; L97.919 - Non-pressure chronic ulcer of unspecified part of right lower leg with unspecified severity (3) Smoking greater than 30 pack years: CODE(S): F17.210 - Nicotine dependence, cigarettes, uncomplicated (4) Essential hypertension: CODE(S): I10 - Essential (primary) hypertension PLAN: Plan Patient was evaluated at the wound center today. A subcutaneous debridement was performed. Wound care - Collagen Santyl nickel thickness covered with gauze daily after washing ulcer with soap and water. Compression - Single layer tubigrip. We will try to get home health to come into his home to help with his dressing changes a few times per week. Vascular studies done at [facility] on 06/02/22. Arterial studies Right JOI - 0.78, Left JOI - 0.5. Mild right lower extremity arterial disease at rest. Moderated left lower extremity arterial disease. Venous studies showed no evidence of abnormalities bilaterally but study was technically limited due to heavy edema. Calf veins poorly visualized. Enlarged lymph node noted in the right inguinal canal, measuring approximately 3.81 x 2.82 x 1.36 cm. Encouraged to eat a diet high in protein and increase vitamin C intake to help with wound healing. Also eat a diet with low sodium to help decrease edema and control blood pressure. Encouraged patient to stop smoking as it may have deleterious effects on wound healing. He does turn his oxygen off and smoke outside when he does smoke. Follow up one week.
[2022-07-24 09:19] VITALS: BP 136/69; PULSE 92; TEMP 36.4; BMI 38.1
--- NOTE | 2022-07-24 11:00 | PN.PCM_ITS ---
History of Present Illness Date of Service: 07/24/22 Chief Complaint: Right lateral leg ulcer History of Wound: 62 year old male presents with a non healing ulcer on his right lateral leg that he bumped it awhile ago. He has had a venous procedure by Dr. Hidalgo not too long ago. He wears oxygen and states that he is trying to quit smoking, he states he smokes a couple per day now, some days he doesn't smoke at all. He has a significant cardiac and respiratory history. He is a poor historian. Wound care - Santyl nickel thickness covered with gauze daily or every other day. Tubigrip for compression. Today he denies fever, chills, nausea or vomiting. He states he has a good appetite. Progress of Wound: Right lateral leg ulcer wound bed is improved with less. Patient now has home health and his dressing is getting changed 3 times a week which has helped improve his wound. Objective Data Objective Data Vital Signs: Vital Signs Temp Pulse Resp BP O2 Flow Rate 97.5 F L 92 22 H 136/69 H 2 07/24/22 09:19 07/24/22 09:19 07/17/22 09:50 07/24/22 09:19 07/17/22 09:50 Oxygen Flow Rate (L/min) 2 Weight: 243 lb 11.572 oz Body Mass Index (BMI) 38.1 Charges/Coding Procedures Integumentary 111xxx-113xx: 56496 Shari subq tissue 20 sq cm/< Debridement Note Debridement Note Wound debrided: lateral leg ulcer Laterality: Right Type of Debridement: Excisional debridement Anesthesia Used: 5% Lidocaine Gel Depth: Down to and including healthy tissue and in the subcutaneous layer Percentage of wound debrided: 100 Instrument Used: 5mm curette Tissue Removed: Devitalized tissue and slough Severity: Fat Layer Exposed Amount of bleeding with debridement: Mild Bleeding Controlled with: Compression and gauze Patient tolerated procedure: Patient tolerated procedure well Post-Debridement Measurements and Additional Note: Post-Debridement Measurements/Treatment WC - Nurse 1 - General Ulcer Assessment Start: 07/17/22 09:48 Freq: Status: Active Protocol: MARYLU Activity Type Activity Date Activity User E-sign Co-sign Detail Recorded Client Recorded Date Recorded By Document 07/17/22 09:50 DL [id number] 07/17/22 09:56 DL Document 07/24/22 09:19 KR [id number] 07/24/22 09:24 KR 07/17/22 07/24/22 09:50 09:19 - Today's Visit Information Type of service Follow-up Visit 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 ) ) Arrival Mode Ambulatory Ambulatory Transfer Assistance None Patient Identification Verified (Name & Yes Yes ) Patient Requires Transmission-Based No Precautions Height and Weight Body Mass Index (BMI) 38.1 38.1 BMI Classification Obese Obese Vital Signs Temperature (97.8 F-99.1 F) 97 F L 97.5 F L Temperature Source Temporal Temporal Pulse Rate (60-100) 73 92 Pulse Location Monitor Monitor Respiratory Rate (12-18) 22 H Respiratory rate source Observation O2 L/MIN (L/min) 2 Blood Pressure (90/60-120/80) 149/87 H 136/69 H Blood Pressure Mean (mm Hg) 107 91 Source Monitor Monitor Position Sitting Blood Pressure Location Left Arm History Since Last Visit- (Skip if this is Patient's initial visit) Have you changed medications since your No No last visit? Any new allergies or adverse reactions No No Had a fall/change in ADL's that may No No increase risk of falls Signs or symptoms of abuse and/or No No neglect since last visit Have you been in the hospital since your No No last visit? Has dressing in place as prescribed Yes Yes Has compression in place as prescribed No Yes Has offloadiing in place as prescribed N/A N/A Experienced any changes in pain level or No No management Left Footwear Regular Shoe Right Footwear Regular Shoe Pain Scale: 0-10 Numeric Is Patient Pain Free? Yes Yes - Nurse 1 - General Ulcer Measurement Start: 07/17/22 09:48 Freq: Status: Active Protocol: Activity Type Activity Date Activity User E-sign Co-sign Detail Recorded Client Recorded Date Recorded By Document 07/17/22 09:50 DL [id number] 07/17/22 09:56 DL Document 07/17/22 09:57 DL [id number] 07/17/22 09:57 DL Document 07/24/22 09:19 KR [id number] 07/24/22 09:24 KR 07/17/22 07/17/22 07/24/22 09:50 09:57 09:19 Wound Center Nurse 1 #1 R Lat LE -Current Size (cm) - Length 4.3 4.4 -Current Size (cm) - Width 1.6 1.9 -Current Size (cm) - Depth 0.2 0.2 -Total Square Cm 6.88 8.36 -Exudate Amt Medium Small -Exudate Type Serosanguineous Serosanguineous -Wound Margin Distinct, Distinct, Outline Outline Attached Attached -Granulation Amt Small (1-33%) Medium (34-66%) -Granulation [place] -Necrosis Amt Large (67-100%) Medium (34-66%) -Necrotic Tissue Type Adherent Slough Adherent Slough -Texture (Alyson-wound Skin Appearance) Assessed, Assessed, Scarring Scarring -Moisture (Alyson-wound Skin Appearance) No Abnormality, No Abnormality, Assessed Assessed -Color (Alyson-wound Skin Appearance) No Abnormality, No Abnormality, Assessed Assessed -Temperature (Alyson-wound Skin No Abnormality No Abnormality Appearance) (Pt Warm) (Pt Warm) -Tenderness on Palpation (Alyson-wound No No Skin Appearance) -Ulcer Cleansing Rinsed/ Rinsed/ Irrigated with Irrigated with Saline Saline -Foul Odor after Cleansing No No -Anesthetic Used 5% Lidocaine 5% Lidocaine Gel Gel Right Calf (cm) 41.3 Right Ankle (cm) 24.5 - Nurse 2 - General Ulcer CM Notes Start: 07/17/22 09:48 Freq: Status: Active Protocol: Activity Type Activity Date Activity User E-sign Co-sign Detail Recorded Client Recorded Date Recorded By Document 07/17/22 10:08 [id number] 07/17/22 10:16 Document 07/24/22 09:50 [id number] 07/24/22 09:53 07/17/22 07/24/22 10:08 09:50 Wound Center Nurse 2 #1 R Lat LE -Time 10:09 09:50 -Correct Patient Yes Yes -Correct Side, Site, Position Yes Yes -Correct Procedure Yes Yes -Procedure Performed Yes Yes -Type of Procedure Debridement Debridement -Clinical Debridement Subcutaneous Subcutaneous -Tissue Removed Subcutaneous Subcutaneous -Post Debridement (cm) - Length 4.4 4.4 -Post Debridement (cm) - Width 2.0 2 -Post Debridement (cm) - Depth 0.2 0.2 -Total Square (Post) (cm) 8.80 8.8 -Area of Debridement (cm) - Length 4.4 4.4 -Area of Debridement (cm) - Width 2.0 2 -Total Square (Area) (cm) 8.80 8.8 -Tunneling No No -Undermining/Tunneling No No -Circular Undermining No No -Wound/Ulcer Outcome Not Healed Not Healed -Ulcer Cleansing Rinsed/ Rinsed/ Irrigated with Irrigated with Saline Saline -Foul Odor after Cleansing No No -Bioengineered Tissue No No -Bleeding Controlled with Pressure Pressure -Treatment Response Procedure Procedure Tolerated Well Tolerated Well -Offloading No No -Debridement - Subq, 1st 20sq cm Yes Yes Pain Scale: 0-10 Numeric Is Patient Pain Free? Yes Yes - Nurse 3 - General Ulcer D/C NN Start: 07/17/22 09:48 Freq: Status: Active Protocol: Activity Type Activity Date Activity User E-sign Co-sign Detail Recorded Client Recorded Date Recorded By Document 07/17/22 10:40 DL [id number] 07/17/22 10:42 DL Document 07/24/22 09:58 KR [id number] 07/24/22 09:58 KR 07/17/22 07/24/22 10:40 09:58 Wound Care Nurse 3 #1 R Lat LE -Ulcer Cleansing Rinsed/ Rinsed/ Irrigated with Irrigated with Saline Saline -Foul Odor after Cleansing No -Other Dressing hydrogel today santyl in clinic -Primary Dressing Covered/Secured with Dry Gauze & Dry Gauze, Roll Gauze, Secured with Secured with Tape Tape Left -Tubular Bandage Single Layer Single Layer -Size of Tubigrip Used Size E Size D -Size D ($) 1 -Size E ($) 1 Right -Tubular Bandage Single Layer Single Layer -Size of Tubigrip Used Size E Size D -Size D ($) 1 -Size E ($) 1 Treatment Response Procedure Tolerated Well Pain Scale: 0-10 Numeric Is Patient Pain Free? Yes Yes WC - Visit Discharge Discharge Condition Stable Stable Ambulatory Status Ambulatory Ambulatory Transportation Private Auto Private Auto Assessment/Plan Assessment/Plan (1) Ulcer of right lower extremity with fat layer exposed: CODE(S): L97.912 - Non-pressure chronic ulcer of unspecified part of right lower leg with fat layer exposed (2) Venous ulcer of right leg: CODE(S): I83.019 - Varicose veins of right lower extremity with ulcer of unspecified site; L97.919 - Non-pressure chronic ulcer of unspecified part of right lower leg with unspecified severity (3) Smoking greater than 30 pack years: CODE(S): F17.210 - Nicotine dependence, cigarettes, uncomplicated (4) Essential hypertension: CODE(S): I10 - Essential (primary) hypertension PLAN: Plan Patient was evaluated at the wound center today. A subcutaneous debridement was performed. Wound care - Collagen Santyl nickel thickness covered with gauze ideally daily after washing ulcer with soap and water, but at least 3 times per week when home health is able to do it. Compression - Single layer tubigrip. Vascular studies done at [facility] on 06/02/22. Arterial studies Right JOI - 0.78, Left JOI - 0.5. Mild right lower extremity arterial disease at rest. Moderated left lower extremity arterial disease. Venous studies showed no evidence of abnormalities bilaterally but study was technically limited due to heavy edema. Calf veins poorly visualized. Enlarged lymph node noted in the right inguinal canal, measuring approximately 3.81 x 2.82 x 1.36 cm. He has an appointment with Dr. Hidalgo later this week. Encouraged to eat a diet high in protein and increase vitamin C intake to help with wound healing. Also eat a diet with low sodium to help decrease edema and control blood pressure. Encouraged patient to stop smoking as it may have deleterious effects on wound healing. He does turn his oxygen off and smoke outside when he does smoke. Follow up one week.
[2022-07-31 09:51] VITALS: BP 134/79; PULSE 97; TEMP 36.6; BMI 38.1
--- NOTE | 2022-07-31 12:15 | PN.PCM_ITS ---
History of Present Illness Date of Service: 07/31/22 Chief Complaint: Right lateral leg ulcer History of Wound: 62 year old male presents with a non healing ulcer on his right lateral leg that he bumped it awhile ago. He has had a venous procedure by Dr. Hidalgo not too long ago. He wears oxygen and states that he is trying to quit smoking, he states he smokes a couple per day now, some days he doesn't smoke at all. He has a significant cardiac and respiratory history. He is a poor historian. Wound care - Santyl nickel thickness covered with gauze daily or every other day. Tubigrip for compression. Today he denies fever, chills, nausea or vomiting. He states he has a good appetite. Progress of Wound: Right lateral leg ulcer wound bed is slightly improved, wound bed is less fibrous. Patient now has home health and his dressing is getting changed 3 times a week. Objective Data Objective Data Vital Signs: Vital Signs Temp Pulse Resp BP O2 Flow Rate 97.9 F 97 22 H 134/79 H 2 07/31/22 09:51 07/31/22 09:51 07/17/22 09:50 07/31/22 09:51 07/17/22 09:50 Oxygen Flow Rate (L/min) 2 Weight: 243 lb 11.572 oz Body Mass Index (BMI) 38.1 Charges/Coding Procedures Integumentary 111xxx-113xx: [id number] Shari subq tissue 20 sq cm/< Debridement Note Debridement Note Wound debrided: lateral leg ulcer Laterality: Right Type of Debridement: Excisional debridement Anesthesia Used: 5% Lidocaine Gel Depth: Down to and including healthy tissue and in the subcutaneous layer Percentage of wound debrided: 100 Instrument Used: 7mm curette Tissue Removed: Devitalized tissue and slough Severity: Fat Layer Exposed Amount of bleeding with debridement: Mild Bleeding Controlled with: Compression and gauze Patient tolerated procedure: Patient tolerated procedure well Post-Debridement Measurements and Additional Note: Post-Debridement Measurements/Treatment WC - Nurse 1 - General Ulcer Assessment Start: 07/17/22 09:48 Freq: Status: Active Protocol: MARYLU Activity Type Activity Date Activity User E-sign Co-sign Detail Recorded Client Recorded Date Recorded By Document 07/17/22 09:50 DL [id number] 07/17/22 09:56 DL Document 07/24/22 09:19 KR [id number] 07/24/22 09:24 KR Document 07/31/22 09:51 KR [id number] 07/31/22 09:52 KR 07/17/22 07/24/22 07/31/22 09:50 09:19 09:51 WC - Today's Visit Information Type of service Follow-up Visit Follow-up Visit Follow-up Visit (Physician/HEALTHCARE TRANSLATOR (Physician/HEALTHCARE TRANSLATOR (Physician/HEALTHCARE TRANSLATOR ) ) ) Arrival Mode Ambulatory Ambulatory Ambulatory Transfer Assistance None Patient Identification Verified (Name & Yes Yes Yes ) Patient Requires Transmission-Based No Precautions Height and Weight Body Mass Index (BMI) 38.1 38.1 38.1 BMI Classification Obese Obese Obese Vital Signs Temperature (97.8 F-99.1 F) 97 F L 97.5 F L 97.9 F Temperature Source Temporal Temporal Temporal Pulse Rate (60-100) 73 92 97 Pulse Location Monitor Monitor Monitor Respiratory Rate (12-18) 22 H Respiratory rate source Observation O2 L/MIN (L/min) 2 Blood Pressure (90/60-120/80) 149/87 H 136/69 H 134/79 H Blood Pressure Mean (mm Hg) 107 91 97 Source Monitor Monitor Monitor Position Sitting Sitting Blood Pressure Location Left Arm Right Arm History Since Last Visit- (Skip if this is Patient's initial visit) Have you changed medications since your No No No last visit? Any new allergies or adverse reactions No No No Had a fall/change in ADL's that may No No No increase risk of falls Signs or symptoms of abuse and/or No No No neglect since last visit Have you been in the hospital since your No No No last visit? Has dressing in place as prescribed Yes Yes Yes Has compression in place as prescribed No Yes Yes Has offloadiing in place as prescribed N/A N/A N/A Experienced any changes in pain level or No No No management Left Footwear Regular Shoe Regular Shoe Right Footwear Regular Shoe Regular Shoe Pain Scale: 0-10 Numeric Is Patient Pain Free? Yes Yes Yes - Nurse 1 - General Ulcer Measurement Start: 07/17/22 09:48 Freq: Status: Active Protocol: Activity Type Activity Date Activity User E-sign Co-sign Detail Recorded Client Recorded Date Recorded By Document 07/17/22 09:50 DL [id number] 07/17/22 09:56 DL Document 07/17/22 09:57 DL [id number] 07/17/22 09:57 DL Document 07/24/22 09:19 KR [id number] 07/24/22 09:24 KR Document 07/31/22 09:51 KR [id number] 07/31/22 09:52 KR 07/17/22 07/17/22 07/24/22 09:50 09:57 09:19 Wound Center Nurse 1 #1 R Lat LE -Current Size (cm) - Length 4.3 4.4 -Current Size (cm) - Width 1.6 1.9 -Current Size (cm) - Depth 0.2 0.2 -Total Square Cm 6.88 8.36 -Exudate Amt Medium Small -Exudate Type Serosanguineous Serosanguineous -Wound Margin Distinct, Distinct, Outline Outline Attached Attached -Granulation Amt Small (1-33%) Medium (34-66%) -Granulation Quality [place] -Necrosis Amt Large (67-100%) Medium (34-66%) -Necrotic Tissue Type Adherent Slough Adherent Slough -Texture (Alyson-wound Skin Appearance) Assessed, Assessed, Scarring Scarring -Moisture (Alyson-wound Skin Appearance) No Abnormality, No Abnormality, Assessed Assessed -Color (Alyson-wound Skin Appearance) No Abnormality, No Abnormality, Assessed Assessed -Temperature (Alyson-wound Skin No Abnormality No Abnormality Appearance) (Pt Warm) (Pt Warm) -Tenderness on Palpation (Alyson-wound No No Skin Appearance) -Ulcer Cleansing Rinsed/ Rinsed/ Irrigated with Irrigated with Saline Saline -Foul Odor after Cleansing No No -Anesthetic Used 5% Lidocaine 5% Lidocaine Gel Gel Right Calf (cm) 41.3 Right Ankle (cm) 24.5 07/31/22 09:51 Wound Center Nurse 1 #1 R Lat LE -Current Size (cm) - Length 4 -Current Size (cm) - Width 2 -Current Size (cm) - Depth 0.2 -Total Square Cm 8 -Exudate Amt Small -Exudate Type Serosanguineous -Wound Margin Distinct, Outline Attached -Granulation Amt Medium (34-66%) -Granulation Quality Red -Necrosis Amt Medium (34-66%) -Necrotic Tissue Type Adherent Slough -Texture (Alyson-wound Skin Appearance) Assessed, Scarring -Moisture (Alyson-wound Skin Appearance) No Abnormality, Assessed -Color (Alyson-wound Skin Appearance) No Abnormality, Assessed -Temperature (Alyson-wound Skin No Abnormality Appearance) (Pt Warm) -Tenderness on Palpation (Alyson-wound No Skin Appearance) -Ulcer Cleansing Rinsed/ Irrigated with Saline -Foul Odor after Cleansing No -Anesthetic Used 5% Lidocaine Gel Right Calf (cm) Right Ankle (cm) WC - Nurse 2 - General Ulcer CM Notes Start: 07/17/22 09:48 Freq: Status: Active Protocol: Activity Type Activity Date Activity User E-sign Co-sign Detail Recorded Client Recorded Date Recorded By Document 07/17/22 10:08 [id number] 07/17/22 10:16 Document 07/24/22 09:50 [id number] 07/24/22 09:53 Document 07/31/22 10:17 [id number] 07/31/22 10:19 07/17/22 07/24/22 07/31/22 10:08 09:50 10:17 Wound Center Nurse 2 #1 R Lat LE -Time 10:09 09:50 10:18 -Correct Patient Yes Yes Yes -Correct Side, Site, Position Yes Yes Yes -Correct Procedure Yes Yes Yes -Procedure Performed Yes Yes Yes -Type of Procedure Debridement Debridement Debridement -Clinical Debridement Subcutaneous Subcutaneous Subcutaneous -Tissue Removed Subcutaneous Subcutaneous Subcutaneous -Post Debridement (cm) - Length 4.4 4.4 4.3 -Post Debridement (cm) - Width 2.0 2 1.9 -Post Debridement (cm) - Depth 0.2 0.2 0.2 -Total Square (Post) (cm) 8.80 8.8 8.17 -Area of Debridement (cm) - Length 4.4 4.4 4.3 -Area of Debridement (cm) - Width 2.0 2 1.9 -Total Square (Area) (cm) 8.80 8.8 8.17 -Tunneling No No No -Undermining/Tunneling No No No -Circular Undermining No No No -Wound/Ulcer Outcome Not Healed Not Healed Not Healed -Ulcer Cleansing Rinsed/ Rinsed/ Rinsed/ Irrigated with Irrigated with Irrigated with Saline Saline Saline -Foul Odor after Cleansing No No No -Bioengineered Tissue No No No -Bleeding Controlled with Pressure Pressure Pressure -Treatment Response Procedure Procedure Procedure Tolerated Well Tolerated Well Tolerated Well -Offloading No No No -Debridement - Subq, 1st 20sq cm Yes Yes Yes Pain Scale: 0-10 Numeric Is Patient Pain Free? Yes Yes Yes WC - Nurse 3 - General Ulcer D/C NN Start: 07/17/22 09:48 Freq: Status: Active Protocol: Activity Type Activity Date Activity User E-sign Co-sign Detail Recorded Client Recorded Date Recorded By Document 07/17/22 10:40 DL [id number] 07/17/22 10:42 DL Document 07/24/22 09:58 KR [id number] 07/24/22 09:58 KR Document 07/31/22 10:49 [id number] 07/31/22 10:51 AK 07/17/22 07/24/22 07/31/22 10:40 09:58 10:49 Wound Care Nurse 3 #1 R Lat LE -Ulcer Cleansing Rinsed/ Rinsed/ Soap and Water Irrigated with Irrigated with Saline Saline -Foul Odor after Cleansing No No -Negative Pressure Wound Therapy N/A -Other Dressing hydrogel today santyl hydrogel in clinic instead of santyl -Primary Dressing Covered/Secured with Dry Gauze & Dry Gauze, Dry Gauze Roll Gauze, Secured with Secured with Tape Tape Left -Lotion applied to leg before No compression wrap -Tubular Bandage Single Layer Single Layer Single Layer -Size of Tubigrip Used Size E Size D Size E -Size D ($) 1 -Size E ($) 1 1 Right -Lotion applied to leg before No compression wrap -Tubular Bandage Single Layer Single Layer Single Layer -Size of Tubigrip Used Size E Size D Size E -Size D ($) 1 -Size E ($) 1 1 Treatment Response Procedure Tolerated Well Pain Scale: 0-10 Numeric Is Patient Pain Free? Yes Yes Yes WC - Visit Discharge Discharge Condition Stable Stable Stable Ambulatory Status Ambulatory Ambulatory Ambulatory Transportation Private Auto Private Auto Private Auto Medication Reconcilliation completed & Yes provided to patient/care provider Clinical Summary of Care Provided Yes Assessment/Plan Assessment/Plan (1) Ulcer of right lower extremity with fat layer exposed: CODE(S): L97.912 - Non-pressure chronic ulcer of unspecified part of right lower leg with fat layer exposed (2) Venous ulcer of right leg: CODE(S): I83.019 - Varicose veins of right lower extremity with ulcer of unspecified site; L97.919 - Non-pressure chronic ulcer of unspecified part of right lower leg with unspecified severity (3) Smoking greater than 30 pack years: CODE(S): F17.210 - Nicotine dependence, cigarettes, uncomplicated (4) Essential hypertension: CODE(S): I10 - Essential (primary) hypertension PLAN: Plan Patient was evaluated at the wound center today. A subcutaneous debridement was performed. Wound care - Collagen Santyl nickel thickness covered with gauze ideally daily after washing ulcer with soap and water, but at least 3 times per week when home health is able to do it. Compression - Single layer tubigrip. Vascular studies done at [facility] on 06/02/22. Arterial studies Right JOI - 0.78, Left JOI - 0.5. Mild right lower extremity arterial disease at rest. Moderated left lower extremity arterial disease. Venous studies showed no evidence of abnormalities bilaterally but study was technically limited due to heavy edema. Calf veins poorly visualized. Enlarged lymph node noted in the right inguinal canal, measuring approximately 3.81 x 2.82 x 1.36 cm. He had an appointment with Dr. Hidalgo last week, will try to obtain the office note. Encouraged to eat a diet high in protein and increase vitamin C intake to help with wound healing. Also eat a diet with low sodium to help decrease edema and control blood pressure. Encouraged patient to stop smoking as it may have deleterious effects on wound healing. He does turn his oxygen off and smoke outside when he does smoke. Follow up one week.
[2022-08-07 09:39] VITALS: BP 156/76; PULSE 90; RESP 22; TEMP 36.8; BMI 38.1
--- NOTE | 2022-08-07 11:10 | PCM.WC.PN ---
History of Present Illness Date of Service: 08/07/22 Chief Complaint: Right lateral leg ulcer History of Wound: 62 year old male presents with a non healing ulcer on his right lateral leg that he bumped it awhile ago. He has had a venous procedure by Dr. Hidalgo not too long ago. He wears oxygen and states that he is trying to quit smoking, he states he smokes a couple per day now, some days he doesn't smoke at all. He has a significant cardiac and respiratory history. He is a poor historian. Wound care - Santyl nickel thickness covered with gauze daily or every other day. Tubigrip for compression. Today he denies fever, chills, nausea or vomiting. He states he has a good appetite. Progress of Wound: Right lateral leg ulcer wound bed has less fibrous tissue, and is bleeding with debridement. It is painful for debridement. Patient has home health and his dressing is getting changed 3 times a week. Objective Data Objective Data Vital Signs: Vital Signs Temp Pulse Resp BP O2 Flow Rate 98.2 F 90 22 H 156/76 H 2 08/07/22 09:39 08/07/22 09:39 08/07/22 09:39 08/07/22 09:39 07/17/22 09:50 Oxygen Flow Rate (L/min) 2 Weight: 243 lb 11.572 oz Body Mass Index (BMI) 38.1 Charges/Coding Procedures Integumentary 111xxx-113xx: 88060 Shari subq tissue 20 sq cm/< Debridement Note Debridement Note Wound debrided: lateral leg ulcer Laterality: Right Wound Grade/Stage: Stage II Type of Debridement: Excisional debridement Anesthesia Used: 5% Lidocaine Gel Depth: Down to and including healthy tissue and in the subcutaneous layer Percentage of wound debrided: 100 Instrument Used: 5mm curette Tissue Removed: Devitalized tissue and slough Severity: Fat Layer Exposed Amount of bleeding with debridement: Mild Bleeding Controlled with: Compression and gauze Patient tolerated procedure: Patient tolerated procedure well Post-Debridement Measurements and Additional Note: Post-Debridement Measurements/Treatment WC - Nurse 1 - General Ulcer Assessment Start: 07/17/22 09:48 Freq: Status: Active Protocol: KHAI.MORRIS Activity Type Activity Date Activity User E-sign Co-sign Detail Recorded Client Recorded Date Recorded By Document 07/17/22 09:50 DL [id number] 07/17/22 09:56 DL Document 07/24/22 09:19 KR [id number] 07/24/22 09:24 KR Document 07/31/22 09:51 KR [id number] 07/31/22 09:52 KR Document 08/07/22 09:39 DL [id number] 08/07/22 09:46 DL 07/17/22 07/24/22 07/31/22 09:50 09:19 09:51 WC - Today's Visit Information Type of service Follow-up Visit Follow-up Visit Follow-up Visit (Physician/[facility] [employer] (Physician/[facility] [facility] (Physician/[facility] [employer] ) ) ) Arrival Mode Ambulatory Ambulatory Ambulatory Transfer Assistance None Patient Identification Verified (Name & Yes Yes Yes ) Patient Requires Transmission-Based No Precautions Height and Weight Body Mass Index (BMI) 38.1 38.1 38.1 BMI Classification Obese Obese Obese Vital Signs Temperature (97.8 F-99.1 F) 97 F L 97.5 F L 97.9 F Temperature Source Temporal Temporal Temporal Pulse Rate (60-100) 73 92 97 Pulse Location Monitor Monitor Monitor Respiratory Rate (12-18) 22 H Respiratory rate source Observation O2 L/MIN (L/min) 2 Blood Pressure (90/60-120/80) 149/87 H 136/69 H 134/79 H Blood Pressure Mean (mm Hg) 107 91 97 Source Monitor Monitor Monitor Position Sitting Sitting Blood Pressure Location Left Arm Right Arm History Since Last Visit- (Skip if this is Patient's initial visit) Have you changed medications since your No No No last visit? Any new allergies or adverse reactions No No No Had a fall/change in ADL's that may No No No increase risk of falls Signs or symptoms of abuse and/or No No No neglect since last visit Have you been in the hospital since your No No No last visit? Has dressing in place as prescribed Yes Yes Yes Has compression in place as prescribed No Yes Yes Has offloadiing in place as prescribed N/A N/A N/A Experienced any changes in pain level or No No No management Left Footwear Regular Shoe Regular Shoe Right Footwear Regular Shoe Regular Shoe Pain Scale: 0-10 Numeric Is Patient Pain Free? Yes Yes Yes 08/07/22 09:39 WC - Today's Visit Information Type of service Follow-up Visit (Physician/[facility] ) Arrival Mode Ambulatory, Walker Transfer Assistance None Patient Identification Verified (Name & Yes ) Patient Requires Transmission-Based No Precautions Height and Weight Body Mass Index (BMI) 38.1 BMI Classification Obese Vital Signs Temperature (97.8 F-99.1 F) 98.2 F Temperature Source Temporal Pulse Rate (60-100) 90 Pulse Location Monitor Respiratory Rate (12-18) 22 H Respiratory rate source Observation O2 L/MIN (L/min) Blood Pressure (90/60-120/80) 156/76 H Blood Pressure Mean (mm Hg) 102 Source Monitor Position Blood Pressure Location History Since Last Visit- (Skip if this is Patient's initial visit) Have you changed medications since your No last visit? Any new allergies or adverse reactions No Had a fall/change in ADL's that may No increase risk of falls Signs or symptoms of abuse and/or No neglect since last visit Have you been in the hospital since your No last visit? Has dressing in place as prescribed Yes Has compression in place as prescribed Yes Has offloadiing in place as prescribed N/A Experienced any changes in pain level or No management Left Footwear Right Footwear Pain Scale: 0-10 Numeric Is Patient Pain Free? Yes - Nurse 1 - General Ulcer Measurement Start: 07/17/22 09:48 Freq: Status: Active Protocol: Activity Type Activity Date Activity User E-sign Co-sign Detail Recorded Client Recorded Date Recorded By Document 07/17/22 09:50 DL [id number] 07/17/22 09:56 DL Document 07/17/22 09:57 DL [id number] 07/17/22 09:57 DL Document 07/24/22 09:19 KR [id number] 07/24/22 09:24 KR Document 07/31/22 09:51 KR [id number] 07/31/22 09:52 KR Document 08/07/22 09:39 DL [id number] 08/07/22 09:46 DL 07/17/22 07/17/22 07/24/22 09:50 09:57 09:19 Wound Center Nurse 1 #1 R Lat LE -Current Size (cm) - Length 4.3 4.4 -Current Size (cm) - Width 1.6 1.9 -Current Size (cm) - Depth 0.2 0.2 -Total Square Cm 6.88 8.36 -Photo Taken -Exudate Amt Medium Small -Exudate Type Serosanguineous Serosanguineous -Wound Margin Distinct, Distinct, Outline Outline Attached Attached -Granulation Amt Small (1-33%) Medium (34-66%) -Granulation Quality [place] -Necrosis Amt Large (67-100%) Medium (34-66%) -Necrotic Tissue Type Adherent Slough Adherent Slough -Structure Exposed -Texture (Alyson-wound Skin Appearance) Assessed, Assessed, Scarring Scarring -Moisture (Alyson-wound Skin Appearance) No Abnormality, No Abnormality, Assessed Assessed -Color (Alyson-wound Skin Appearance) No Abnormality, No Abnormality, Assessed Assessed -Temperature (Alyson-wound Skin No Abnormality No Abnormality Appearance) (Pt Warm) (Pt Warm) -Tenderness on Palpation (Alyson-wound No No Skin Appearance) -Ulcer Cleansing Rinsed/ Rinsed/ Irrigated with Irrigated with Saline Saline -Foul Odor after Cleansing No No -Anesthetic Used 5% Lidocaine 5% Lidocaine Gel Gel Right Calf (cm) 41.3 Right Ankle (cm) 24.5 07/31/22 08/07/22 09:51 09:39 Wound Center Nurse 1 #1 R Lat LE -Current Size (cm) - Length 4 3.8 -Current Size (cm) - Width 2 1.8 -Current Size (cm) - Depth 0.2 0.2 -Total Square Cm 8 6.84 -Photo Taken Yes -Exudate Amt Small Medium -Exudate Type Serosanguineous Serosanguineous -Wound Margin Distinct, Distinct, Outline Outline Attached Attached -Granulation Amt Medium (34-66%) Medium (34-66%) -Granulation Quality [place] -Necrosis Amt Medium (34-66%) Medium (34-66%) -Necrotic Tissue Type Adherent Slough Adherent Slough -Structure Exposed N/A -Texture (Alyson-wound Skin Appearance) Assessed, Localized Edema Scarring ,Scarring -Moisture (Alyson-wound Skin Appearance) No Abnormality, Dry/Scaly Assessed -Color (Alyson-wound Skin Appearance) No Abnormality, Hemosiderin Assessed Staining -Temperature (Alyson-wound Skin No Abnormality No Abnormality Appearance) (Pt Warm) (Pt Warm) -Tenderness on Palpation (Alyson-wound No No Skin Appearance) -Ulcer Cleansing Rinsed/ Soap and Water Irrigated with Saline -Foul Odor after Cleansing No No -Anesthetic Used 5% Lidocaine 5% Lidocaine Gel Gel Right Calf (cm) 40.5 Right Ankle (cm) 24.2 WC - Nurse 2 - General Ulcer CM Notes Start: 07/17/22 09:48 Freq: Status: Active Protocol: Activity Type Activity Date Activity User E-sign Co-sign Detail Recorded Client Recorded Date Recorded By Document 07/17/22 10:08 [id number] 07/17/22 10:16 Document 07/24/22 09:50 [id number] 07/24/22 09:53 Document 07/31/22 10:17 [id number] 07/31/22 10:19 Document 08/07/22 10:13 [id number] 08/07/22 10:16 07/17/22 07/24/22 07/31/22 10:08 09:50 10:17 Wound Center Nurse 2 #1 R Lat LE -Time 10:09 09:50 10:18 -Correct Patient Yes Yes Yes -Correct Side, Site, Position Yes Yes Yes -Correct Procedure Yes Yes Yes -Procedure Performed Yes Yes Yes -Type of Procedure Debridement Debridement Debridement -Clinical Debridement Subcutaneous Subcutaneous Subcutaneous -Tissue Removed Subcutaneous Subcutaneous Subcutaneous -Post Debridement (cm) - Length 4.4 4.4 4.3 -Post Debridement (cm) - Width 2.0 2 1.9 -Post Debridement (cm) - Depth 0.2 0.2 0.2 -Total Square (Post) (cm) 8.80 8.8 8.17 -Area of Debridement (cm) - Length 4.4 4.4 4.3 -Area of Debridement (cm) - Width 2.0 2 1.9 -Total Square (Area) (cm) 8.80 8.8 8.17 -Tunneling No No No -Undermining/Tunneling No No No -Circular Undermining No No No -Wound/Ulcer Outcome Not Healed Not Healed Not Healed -Ulcer Cleansing Rinsed/ Rinsed/ Rinsed/ Irrigated with Irrigated with Irrigated with Saline Saline Saline -Foul Odor after Cleansing No No No -Bioengineered Tissue No No No -Bleeding Controlled with Pressure Pressure Pressure -Treatment Response Procedure Procedure Procedure Tolerated Well Tolerated Well Tolerated Well -Offloading No No No -Debridement - Subq, 1st 20sq cm Yes Yes Yes Pain Scale: 0-10 Numeric Is Patient Pain Free? Yes Yes Yes 08/07/22 10:13 Wound Center Nurse 2 #1 R Lat LE -Time 10:13 -Correct Patient Yes -Correct Side, Site, Position Yes -Correct Procedure Yes -Procedure Performed Yes -Type of Procedure Debridement -Clinical Debridement Subcutaneous -Tissue Removed Subcutaneous -Post Debridement (cm) - Length 4.0 -Post Debridement (cm) - Width 2.1 -Post Debridement (cm) - Depth 0.2 -Total Square (Post) (cm) 8.40 -Area of Debridement (cm) - Length 4.0 -Area of Debridement (cm) - Width 2.1 -Total Square (Area) (cm) 8.40 -Tunneling No -Undermining/Tunneling No -Circular Undermining No -Wound/Ulcer Outcome Not Healed -Ulcer Cleansing Rinsed/ Irrigated with Saline -Foul Odor after Cleansing No -Bioengineered Tissue No -Bleeding Controlled with Pressure -Treatment Response Procedure Tolerated Well -Offloading No -Debridement - Subq, 1st 20sq cm Yes Pain Scale: 0-10 Numeric Is Patient Pain Free? Yes - Nurse 3 - General Ulcer D/C NN Start: 07/17/22 09:48 Freq: Status: Active Protocol: Activity Type Activity Date Activity User E-sign Co-sign Detail Recorded Client Recorded Date Recorded By Document 07/17/22 10:40 DL [id number] 07/17/22 10:42 DL Document 07/24/22 09:58 KR [id number] 07/24/22 09:58 KR Document 07/31/22 10:49 AK [id number] 07/31/22 10:51 AK Document 08/07/22 10:26 DL [id number] 08/07/22 10:27 DL 07/17/22 07/24/22 07/31/22 10:40 09:58 10:49 Wound Care Nurse 3 #1 R Lat LE -Ulcer Cleansing Rinsed/ Rinsed/ Soap and Water Irrigated with Irrigated with Saline Saline -Foul Odor after Cleansing No No -Negative Pressure Wound Therapy N/A -Other Dressing hydrogel today santyl hydrogel in clinic instead of santyl -Primary Dressing Covered/Secured with Dry Gauze & Dry Gauze, Dry Gauze Roll Gauze, Secured with Secured with Tape Tape -Other Covering Left -Lotion applied to leg before No compression wrap -Tubular Bandage Single Layer Single Layer Single Layer -Size of Tubigrip Used Size E Size D Size E -Size D ($) 1 -Size E ($) 1 1 Right -Lotion applied to leg before No compression wrap -Tubular Bandage Single Layer Single Layer Single Layer -Size of Tubigrip Used Size E Size D Size E -Size D ($) 1 -Size E ($) 1 1 Treatment Response Procedure Tolerated Well Pain Scale: 0-10 Numeric Is Patient Pain Free? Yes Yes Yes WC - Visit Discharge Discharge Condition Stable Stable Stable Ambulatory Status Ambulatory Ambulatory Ambulatory Transportation Private Auto Private Auto Private Auto Medication Reconcilliation completed & Yes provided to patient/care provider Clinical Summary of Care Provided Yes Facility Type Orders Sent 08/07/22 10:26 Wound Care Nurse 3 #1 R Lat LE -Ulcer Cleansing Rinsed/ Irrigated with Saline -Foul Odor after Cleansing No -Negative Pressure Wound Therapy -Other Dressing hydrogel -Primary Dressing Covered/Secured with Dry Gauze & Roll Gauze, Secured with Tape -Other Covering tubigrip Left -Lotion applied to leg before compression wrap -Tubular Bandage -Size of Tubigrip Used -Size D ($) -Size E ($) Right -Lotion applied to leg before compression wrap -Tubular Bandage -Size of Tubigrip Used -Size D ($) -Size E ($) Treatment Response Procedure Tolerated Well Pain Scale: 0-10 Numeric Is Patient Pain Free? Yes WC - Visit Discharge Discharge Condition Stable Ambulatory Status Ambulatory, Walker Transportation Private Auto Medication Reconcilliation completed & provided to patient/care provider Clinical Summary of Care Provided Facility Type Home Health Orders Sent Yes Assessment/Plan Assessment/Plan (1) Ulcer of right lower extremity with fat layer exposed: CODE(S): L97.912 - Non-pressure chronic ulcer of unspecified part of right lower leg with fat layer exposed (2) Venous ulcer of right leg: CODE(S): I83.019 - Varicose veins of right lower extremity with ulcer of unspecified site; L97.919 - Non-pressure chronic ulcer of unspecified part of right lower leg with unspecified severity (3) Smoking greater than 30 pack years: CODE(S): F17.210 - Nicotine dependence, cigarettes, uncomplicated (4) Essential hypertension: CODE(S): I10 - Essential (primary) hypertension PLAN: Plan Patient was evaluated at the wound center today. A subcutaneous debridement was performed. Wound care - Collagen Santyl nickel thickness covered with gauze ideally daily after washing ulcer with soap and water, but at least 3 times per week when home health is able to do it. Compression - Single layer tubigrip. Vascular studies done at [facility] on 06/02/22. Arterial studies Right JOI - 0.78, Left JOI - 0.5. Mild right lower extremity arterial disease at rest. Moderated left lower extremity arterial disease. Venous studies showed no evidence of abnormalities bilaterally but study was technically limited due to heavy edema. Calf veins poorly visualized. Enlarged lymph node noted in the right inguinal canal, measuring approximately 3.81 x 2.82 x 1.36 cm. He had an appointment with Dr. Hidalgo, who states continue compression. Encouraged to eat a diet high in protein and increase vitamin C intake to help with wound healing. Also eat a diet with low sodium to help decrease edema and control blood pressure. Encouraged patient to stop smoking as it may have deleterious effects on wound healing. He does turn his oxygen off and smoke outside when he does smoke. Follow up one week.
== END 2022-08-07 23:59 | disposition home or self-care (01) ==
LOC: WC 09:30
PROVIDERS: PCP Student in an Organized Health Care Education/Training Program; Visit Provider Nurse Practitioner Family
DX: I83.018 Varicose veins of right lower extremity with ulcer other part of lower leg (principal); L97.812 Non-pressure chronic ulcer of other part of right lower leg with fat layer exposed; I87.2 Venous insufficiency (chronic) (peripheral); I10 Essential (primary) hypertension; F17.210 Nicotine dependence, cigarettes, uncomplicated; Z79.51 Long term (current) use of inhaled steroids; Z79.899 Other long term (current) drug therapy
CPT/HCPCS: 11042

== ENCOUNTER 2022-09-04 09:15 | Outpatient (RCR) | payer MEDICARE, MEDICAID, SELFPAY ==
[2022-08-08 00:38] VITALS: BP 156/76; PULSE 90; RESP 22; TEMP 36.8; BMI 38.1
[2022-08-14 10:00] VITALS: BP 152/59; PULSE 70; RESP 18; TEMP 36.4; BMI 38.1
--- NOTE | 2022-08-14 12:25 | PN.PCM_ITS ---
History of Present Illness Date of Service: 08/14/22 Chief Complaint: Right lateral leg ulcer History of Wound: 62 year old male presents with a non healing ulcer on his right lateral leg that he bumped it awhile ago. He has had a venous procedure by Dr. Hidalgo not too long ago. He wears oxygen and states that he is trying to quit smoking, he states he smokes a couple per day now, some days he doesn't smoke at all. He has a significant cardiac and respiratory history. He is a poor historian. Wound care - Santyl nickel thickness covered with gauze daily or every other day. Tubigrip for compression. Today he denies fever, chills, nausea or vomiting. He states he has a good appetite. Progress of Wound: Right lateral leg ulcer wound bed has less fibrous tissue with some islands of skin growth in the center. Objective Data Objective Data Vital Signs: Vital Signs Temp Pulse Resp BP O2 Flow Rate 97.5 F L 70 18 152/59 H 2 08/14/22 10:00 08/14/22 10:00 08/14/22 10:00 08/14/22 10:00 08/08/22 00:38 Oxygen Flow Rate (L/min) 2 Weight: 243 lb 11.572 oz Body Mass Index (BMI) 38.1 Charges/Coding Procedures Integumentary 111xxx-113xx: 46774 Shari subq tissue 20 sq cm/< Debridement Note Debridement Note Wound debrided: lateral leg ulcer Laterality: Right Wound Grade/Stage: Stage II Type of Debridement: Excisional debridement Anesthesia Used: 5% Lidocaine Gel Depth: Down to and including healthy tissue and in the subcutaneous layer Percentage of wound debrided: 100 Instrument Used: 5mm curette Tissue Removed: Devitalized tissue and slough Severity: Fat Layer Exposed Amount of bleeding with debridement: Mild Bleeding Controlled with: Compression and gauze Patient tolerated procedure: Patient tolerated procedure well Post-Debridement Measurements and Additional Note: Post-Debridement Measurements/Treatment KHAI - Nurse 1 - General Ulcer Assessment Start: 08/14/22 10:00 Freq: Status: Active Protocol: MARYLU Activity Type Activity Date Activity User E-sign Co-sign Detail Recorded Client Recorded Date Recorded By Document 08/14/22 10:00 GORAN [id number] 08/14/22 10:02 GORAN 08/14/22 10:00 - Today's Visit Information Type of service Nurse-only Visit Arrival Mode Ambulatory Transfer Assistance None Patient Identification Verified (Name & Yes ) Patient Requires Transmission-Based No Precautions Height and Weight Body Mass Index (BMI) 38.1 BMI Classification Obese Vital Signs Temperature (97.8 F-99.1 F) 97.5 F L Temperature Source Temporal Pulse Rate (60-100) 70 Pulse Location Monitor Respiratory Rate (12-18) 18 Respiratory rate source Observation Blood Pressure (90/60-120/80) 152/59 H Blood Pressure Mean (mm Hg) 90 Source Monitor Position Semi-Fowlers Blood Pressure Location Left Arm History Since Last Visit- (Skip if this is Patient's initial visit) Have you changed medications since your No last visit? Any new allergies or adverse reactions No Had a fall/change in ADL's that may No increase risk of falls Signs or symptoms of abuse and/or No neglect since last visit Have you been in the hospital since your No last visit? Has dressing in place as prescribed Yes Has compression in place as prescribed Yes Has offloadiing in place as prescribed No Experienced any changes in pain level or No management Pain Scale: 0-10 Numeric Is Patient Pain Free? Yes - Nurse 1 - General Ulcer Measurement Start: 08/14/22 10:00 Freq: Status: Active Protocol: Activity Type Activity Date Activity User E-sign Co-sign Detail Recorded Client Recorded Date Recorded By Document 08/14/22 10:00 [id number] 08/14/22 10:02 08/14/22 10:00 Wound Center Nurse 1 #1 R Lat LE -Combined with other wound No -Current Size (cm) - Length 4 -Current Size (cm) - Width 2.3 -Current Size (cm) - Depth 0.1 -Total Square Cm 9.2 -Photo Taken Yes -Tunneling No -Undermining/Tunneling No -Circular Undermining No -Exudate Amt Medium -Exudate Type Serosanguineous -Wound Margin Distinct, Outline Attached -Granulation Amt Medium (34-66%) -Granulation Quality [place] -Slough/Fibrin Yes -Necrosis Amt Small (1-33%) -Necrotic Tissue Type Adherent Slough -Structure Exposed N/A -Texture (Alyson-wound Skin Appearance) Assessed -Moisture (Alyson-wound Skin Appearance) Assessed,Dry/ Scaly -Color (Alyson-wound Skin Appearance) Assessed -Temperature (Alyson-wound Skin No Abnormality Appearance) (Pt Warm) -Tenderness on Palpation (Alyson-wound No Skin Appearance) -Ulcer Cleansing Wound Cleanser -Foul Odor after Cleansing No -Anesthetic Used 5% Lidocaine Gel Lower Limb Edema Present Yes Right Calf (cm) 40 Right Ankle (cm) 28 WC - Nurse 2 - General Ulcer CM Notes Start: 08/14/22 10:00 Freq: Status: Active Protocol: Activity Type Activity Date Activity User E-sign Co-sign Detail Recorded Client Recorded Date Recorded By Document 08/14/22 10:18 [id number] 08/14/22 10:22 JF 08/14/22 10:18 Wound Center Nurse 2 #1 R Lat LE -Time 10:19 -Correct Patient Yes -Correct Side, Site, Position Yes -Correct Procedure Yes -Procedure Performed Yes -Type of Procedure Debridement -Clinical Debridement Subcutaneous -Tissue Removed Subcutaneous -Post Debridement (cm) - Length 4.0 -Post Debridement (cm) - Width 2.0 -Post Debridement (cm) - Depth 0.2 -Total Square (Post) (cm) 8.00 -Area of Debridement (cm) - Length 4.0 -Area of Debridement (cm) - Width 2.0 -Total Square (Area) (cm) 8.00 -Tunneling No -Undermining/Tunneling No -Circular Undermining No -Wound/Ulcer Outcome Not Healed -Ulcer Cleansing Rinsed/ Irrigated with Saline -Foul Odor after Cleansing No -Bioengineered Tissue No -Bleeding Controlled with Pressure -Treatment Response Procedure Not Tolerated Well -Offloading No -Debridement - Subq, 1st 20sq cm Yes Pain Scale: 0-10 Numeric Is Patient Pain Free? Yes - Nurse 3 - General Ulcer D/C NN Start: 08/14/22 10:00 Freq: Status: Active Protocol: Activity Type Activity Date Activity User E-sign Co-sign Detail Recorded Client Recorded Date Recorded By Document 08/14/22 10:33 DL [id number] 08/14/22 10:34 DL 08/14/22 10:33 Wound Care Nurse 3 #1 R Lat LE -Ulcer Cleansing Rinsed/ Irrigated with Saline -Foul Odor after Cleansing No -Primary Dressing Applied Promogran Peggy [place] -Primary Dressing Covered/Secured with Dry Gauze & Roll Gauze, Secured with Tape -Other Covering tubigrip -Promogran Peggy Matter 1 Treatment Response Procedure Tolerated Well Pain Scale: 0-10 Numeric Is Patient Pain Free? Yes WC - Visit Discharge Discharge Condition Stable Ambulatory Status Ambulatory Transportation Private Auto Facility Type Home Health Orders Sent Yes Assessment/Plan Assessment/Plan (1) Ulcer of right lower extremity with fat layer exposed: CODE(S): L97.912 - Non-pressure chronic ulcer of unspecified part of right lower leg with fat layer exposed (2) Venous ulcer of right leg: CODE(S): I83.019 - Varicose veins of right lower extremity with ulcer of unspecified site; L97.919 - Non-pressure chronic ulcer of unspecified part of right lower leg with unspecified severity (3) Smoking greater than 30 pack years: CODE(S): F17.210 - Nicotine dependence, cigarettes, uncomplicated (4) Essential hypertension: CODE(S): I10 - Essential (primary) hypertension PLAN: Plan Patient was evaluated at the wound center today. A subcutaneous debridement was performed. Wound care - Collagen hydrogel covered with gauze ideally daily after washing ulcer with soap and water ideally daily, but at least 3 times per week when home health is able to do it. Compression - Single layer tubigrip. Vascular studies done at [facility] on 06/02/22. Arterial studies Right JOI - 0.78, Left JOI - 0.5. Mild right lower extremity arterial disease at rest. Moderated left lower extremity arterial disease. Venous studies showed no evidence of abnormalities bilaterally but study was technically limited due to heavy edema. Calf veins poorly visualized. Enlarged lymph node noted in the right inguinal canal, measuring approximately 3.81 x 2.82 x 1.36 cm. He had an appointment with Dr. Hidalgo, who states continue compression. Encouraged to eat a diet high in protein and increase vitamin C intake to help with wound healing. Also eat a diet with low sodium to help decrease edema and control blood pressure. Encouraged patient to stop smoking as it may have deleterious effects on wound healing. He does turn his oxygen off and smoke outside when he does smoke. Follow up one week.
[2022-08-21 10:11] VITALS: BMI 38.1
--- NOTE | 2022-08-21 11:57 | PN.PCM_ITS ---
History of Present Illness Date of Service: 08/21/22 Chief Complaint: Right lateral leg ulcer History of Wound: 62 year old male presents with a non healing ulcer on his right lateral leg that he bumped it awhile ago. He has had a venous procedure by Dr. Hidalgo not too long ago. He wears oxygen and states that he is trying to quit smoking, he states he smokes a couple per day now, some days he doesn't smoke at all. He has a significant cardiac and respiratory history. He is a poor historian. Wound care - Santyl nickel thickness covered with gauze daily or every other day. Tubigrip for compression. Today he denies fever, chills, nausea or vomiting. He states he has a good appetite. Progress of Wound: Right lateral leg ulcer wound bed is pink and is now a cluster with a healed skin bridge in the center of the ulcer. Objective Data Objective Data Vital Signs: Vital Signs Temp Pulse Resp BP O2 Flow Rate 97.5 F L 70 18 152/59 H 3 08/14/22 10:00 08/14/22 10:00 08/14/22 10:00 08/14/22 10:00 08/21/22 10:11 Oxygen Flow Rate (L/min) 3 Weight: 243 lb 11.572 oz Body Mass Index (BMI) 38.1 Charges/Coding Procedures Integumentary 111xxx-113xx: 03117 Shari subq tissue 20 sq cm/< Debridement Note Debridement Note Wound debrided: lateral leg ulcer Laterality: Right Wound Grade/Stage: Stage II Type of Debridement: Excisional debridement Anesthesia Used: 5% Lidocaine Gel Depth: Down to and including healthy tissue and in the subcutaneous layer Percentage of wound debrided: 100 Instrument Used: 5mm curette Tissue Removed: Devitalized tissue and slough Severity: Fat Layer Exposed Amount of bleeding with debridement: Mild Bleeding Controlled with: Compression and gauze Patient tolerated procedure: Patient tolerated procedure well Post-Debridement Measurements and Additional Note: Post-Debridement Measurements/Treatment WC - Nurse 1 - General Ulcer Assessment Start: 08/14/22 10:00 Freq: Status: Active Protocol: MARYLU Activity Type Activity Date Activity User E-sign Co-sign Detail Recorded Client Recorded Date Recorded By Document 08/14/22 10:00 GORAN [id number] 08/14/22 10:02 RB Document 08/21/22 10:11 AK [id number] 08/21/22 10:14 AK 08/14/22 08/21/22 10:00 10:11 WC - Today's Visit Information Type of service Nurse-only Follow-up Visit Visit (Physician/CONTACT CENTRE SUPERVISOR ) Arrival Mode Ambulatory Ambulatory Transfer Assistance None Patient Identification Verified (Name & Yes Yes ) Patient Requires Transmission-Based No No Precautions Height and Weight Body Mass Index (BMI) 38.1 38.1 BMI Classification Obese Obese Vital Signs Temperature (97.8 F-99.1 F) 97.5 F L Temperature Source Temporal Pulse Rate (60-100) 70 Pulse Location Monitor Respiratory Rate (12-18) 18 Respiratory rate source Observation O2 L/MIN (L/min) 3 Blood Pressure (90/60-120/80) 152/59 H Blood Pressure Mean (mm Hg) 90 Source Monitor Position Semi-Fowlers Blood Pressure Location Left Arm History Since Last Visit- (Skip if this is Patient's initial visit) Have you changed medications since your No No last visit? Any new allergies or adverse reactions No No Had a fall/change in ADL's that may No No increase risk of falls Signs or symptoms of abuse and/or No No neglect since last visit Have you been in the hospital since your No No last visit? Has dressing in place as prescribed Yes Yes Has compression in place as prescribed Yes Yes Has offloadiing in place as prescribed No N/A Experienced any changes in pain level or No No management Left Footwear Regular Shoe Right Footwear Regular Shoe Pain Scale: 0-10 Numeric Is Patient Pain Free? Yes No - Nurse 1 - General Ulcer Measurement Start: 08/14/22 10:00 Freq: Status: Active Protocol: Activity Type Activity Date Activity User E-sign Co-sign Detail Recorded Client Recorded Date Recorded By Document 08/14/22 10:00 RB [id number] 08/14/22 10:02 RB Document 08/21/22 10:11 AK [id number] 08/21/22 10:14 AK 08/14/22 08/21/22 10:00 10:11 Wound Center Nurse 1 #1 R Lat LE -Combined with other wound No No -Current Size (cm) - Length 4 3.6 -Current Size (cm) - Width 2.3 2 -Current Size (cm) - Depth 0.1 0.2 -Total Square Cm 9.2 7.2 -Date of Last Picture (Recall this 08/21/22 field) -Photo Taken Yes Yes -Tunneling No No -Undermining/Tunneling No No -Circular Undermining No No -Change in Wound Grade/Stage No -Exudate Amt Medium Medium -Exudate Type Serosanguineous Serosanguineous -Wound Margin Distinct, Distinct, Outline Outline Attached Attached -Granulation Amt Medium (34-66%) Large (67-100%) -Granulation Quality [place] -Slough/Fibrin Yes Yes -Necrosis Amt Small (1-33%) Small (1-33%) -Necrotic Tissue Type Adherent Slough Adherent Slough -Structure Exposed N/A N/A -Texture (Alyson-wound Skin Appearance) Assessed No Abnormality, Assessed -Moisture (Alyson-wound Skin Appearance) Assessed,Dry/ No Abnormality, Scaly Assessed -Color (Alyson-wound Skin Appearance) Assessed No Abnormality, Assessed -Temperature (Alyson-wound Skin No Abnormality No Abnormality Appearance) (Pt Warm) (Pt Warm) -Tenderness on Palpation (Alyson-wound No No Skin Appearance) -Ulcer Cleansing Wound Cleanser Rinsed/ Irrigated with Saline -Foul Odor after Cleansing No No -Anesthetic Used 5% Lidocaine 5% Lidocaine Gel Gel Lower Limb Edema Present Yes Right Calf (cm) 40 Right Ankle (cm) 28 - Nurse 2 - General Ulcer CM Notes Start: 08/14/22 10:00 Freq: Status: Active Protocol: Activity Type Activity Date Activity User E-sign Co-sign Detail Recorded Client Recorded Date Recorded By Document 08/14/22 10:18 [id number] 08/14/22 10:22 Document 08/21/22 09:55 [id number] 08/21/22 09:57 08/14/22 08/21/22 10:18 09:55 Wound Center Nurse 2 #1 R Lat LE -Time 10:19 09:56 -Correct Patient Yes Yes -Correct Side, Site, Position Yes Yes -Correct Procedure Yes Yes -Procedure Performed Yes Yes -Type of Procedure Debridement Debridement -Clinical Debridement Subcutaneous Subcutaneous -Tissue Removed Subcutaneous Subcutaneous -Post Debridement (cm) - Length 4.0 4 -Post Debridement (cm) - Width 2.0 2 -Post Debridement (cm) - Depth 0.2 0.2 -Total Square (Post) (cm) 8.00 8 -Area of Debridement (cm) - Length 4.0 4 -Area of Debridement (cm) - Width 2.0 2 -Total Square (Area) (cm) 8.00 8 -Tunneling No No -Undermining/Tunneling No No -Circular Undermining No No -Wound/Ulcer Outcome Not Healed Not Healed -Ulcer Cleansing Rinsed/ Rinsed/ Irrigated with Irrigated with Saline Saline -Foul Odor after Cleansing No No -Bioengineered Tissue No No -Bleeding Controlled with Pressure Pressure -Treatment Response Procedure Not Procedure Tolerated Well Tolerated Well -Offloading No No -Debridement - Subq, 1st 20sq cm Yes Yes Pain Scale: 0-10 Numeric Is Patient Pain Free? Yes Yes - Nurse 3 - General Ulcer D/C NN Start: 08/14/22 10:00 Freq: Status: Active Protocol: Activity Type Activity Date Activity User E-sign Co-sign Detail Recorded Client Recorded Date Recorded By Document 08/14/22 10:33 DL [id number] 08/14/22 10:34 DL Document 08/21/22 10:11 AK [id number] 08/21/22 10:14 AK 08/14/22 08/21/22 10:33 10:11 Wound Care Nurse 3 #1 R Lat LE -Ulcer Cleansing Rinsed/ Rinsed/ Irrigated with Irrigated with Saline Saline -Foul Odor after Cleansing No No -Negative Pressure Wound Therapy N/A -Primary Dressing Applied Promogran Promogran Peggy Matter Peggy Matter -Primary Dressing Covered/Secured with Dry Gauze & Dry Gauze & Roll Gauze, Roll Gauze, Secured with Secured with Tape Tape -Other Covering tubigrip -Promogran Peggy Matter 1 1 Right -Tubular Bandage Single Layer -Size of Tubigrip Used Size F -Size F ($) 1 Treatment Response Procedure Tolerated Well Vital Signs O2 L/MIN (L/min) 3 Pain Scale: 0-10 Numeric Is Patient Pain Free? Yes No WC - Visit Discharge Discharge Condition Stable Stable Ambulatory Status Ambulatory Ambulatory Transportation Private Auto Private Auto Medication Reconcilliation completed & Yes provided to patient/care provider Clinical Summary of Care Provided Yes Facility Type Home Health Orders Sent Yes Assessment/Plan Assessment/Plan (1) Ulcer of right lower extremity with fat layer exposed: CODE(S): L97.912 - Non-pressure chronic ulcer of unspecified part of right lower leg with fat layer exposed (2) Venous ulcer of right leg: CODE(S): I83.019 - Varicose veins of right lower extremity with ulcer of unspecified site; L97.919 - Non-pressure chronic ulcer of unspecified part of right lower leg with unspecified severity (3) Smoking greater than 30 pack years: CODE(S): F17.210 - Nicotine dependence, cigarettes, uncomplicated (4) Essential hypertension: CODE(S): I10 - Essential (primary) hypertension PLAN: Plan Patient was evaluated at the wound center today. A subcutaneous debridement was performed. Wound care - Moistened Peggy covered with gauze ideally daily after washing ulcer with soap and water ideally daily, but at least 3 times per week when home health is able to do it. Compression - Single layer tubigrip. Vascular studies done at [facility] on 06/02/22. Arterial studies Right JOI - 0.78, Left JOI - 0.5. Mild right lower extremity arterial disease at rest. Moderated left lower extremity arterial disease. Venous studies showed no evidence of abnormalities bilaterally but study was technically limited due to heavy edema. Calf veins poorly visualized. Enlarged lymph node noted in the right inguinal canal, measuring approximately 3.81 x 2.82 x 1.36 cm. He had an appointment with Dr. Hidalgo, who states continue compression. Encouraged to eat a diet high in protein and increase vitamin C intake to help with wound healing. Also eat a diet with low sodium to help decrease edema and control blood pressure. Encouraged patient to stop smoking as it may have deleterious effects on wound healing. He does turn his oxygen off and smoke outside when he does smoke. Follow up one week.
[2022-08-28 09:17] VITALS: BP 152/72; PULSE 77; RESP 18; TEMP 35.7; BMI 38.1
--- NOTE | 2022-08-28 11:21 | PCM.WC.PN ---
History of Present Illness Date of Service: 08/28/22 Chief Complaint: Right lateral leg ulcer History of Wound: 62 year old male presents with a non healing ulcer on his right lateral leg that he bumped it awhile ago. He has had a venous procedure by Dr. Hidalgo not too long ago. He wears oxygen and states that he is trying to quit smoking, he states he smokes a couple per day now, some days he doesn't smoke at all. He has a significant cardiac and respiratory history. He is a poor historian. Wound care - Santyl nickel thickness covered with gauze daily or every other day. Tubigrip for compression. Today he denies fever, chills, nausea or vomiting. He states he has a good appetite. Progress of Wound: Right lateral leg ulcer wound bed is pink and is now a cluster with a healed skin bridge in the center of the ulcer that is larger this week. He has new wound on his right forearm from where he bumped it on the edge of the screen door. It is a superficial skin tear with pink wound bed. Objective Data Objective Data Vital Signs: Vital Signs Temp Pulse Resp BP O2 Del Method O2 Flow Rate 96.2 F L 77 18 152/72 H Nasal Cannula 3 08/28/22 09:17 08/28/22 09:17 08/28/22 09:17 08/28/22 09:17 08/28/22 09:17 08/28/22 09:17 Oxygen Flow Rate (L/min) 3 Oxygen Delivery Method Nasal Cannula Weight: 243 lb 11.572 oz Body Mass Index (BMI) 38.1 Charges/Coding Procedures Integumentary 111xxx-113xx: 35306 Shari subq tissue 20 sq cm/< Debridement Note Debridement Note Wound debrided: lateral leg ulcer Laterality: Right Wound Grade/Stage: Stage II Type of Debridement: Excisional debridement Anesthesia Used: 5% Lidocaine Gel Depth: Down to and including healthy tissue and in the subcutaneous layer Percentage of wound debrided: 100 Instrument Used: 3mm curette Tissue Removed: Devitalized tissue and slough Severity: Fat Layer Exposed Amount of bleeding with debridement: Mild Bleeding Controlled with: Compression and gauze Patient tolerated procedure: Patient tolerated procedure well Post-Debridement Measurements and Additional Note: Post-Debridement Measurements/Treatment WC - Nurse 1 - General Ulcer Assessment Start: 08/14/22 10:00 Freq: Status: Active Protocol: WC.LOWEXT Activity Type Activity Date Activity User E-sign Co-sign Detail Recorded Client Recorded Date Recorded By Document 08/14/22 10:00 RB [id number] 08/14/22 10:02 RB Document 08/21/22 10:11 AK [id number] 08/21/22 10:14 AK Document 08/28/22 09:17 [facility] [id number] 08/28/22 09:26 BMF 08/14/22 08/21/22 08/28/22 10:00 10:11 09:17 WC - Today's Visit Information Type of service Nurse-only Follow-up Visit Follow-up Visit Visit (Physician/MANAGEMENT AND BUDGET ANALYST (Physician/MANAGEMENT AND BUDGET ANALYST ) ) Arrival Mode Ambulatory Ambulatory Ambulatory Transfer Assistance None None Patient Identification Verified (Name & Yes Yes Yes ) Patient Requires Transmission-Based No No No Precautions Height and Weight Body Mass Index (BMI) 38.1 38.1 38.1 BMI Classification Obese Obese Obese Vital Signs Temperature (97.8 F-99.1 F) 97.5 F L 96.2 F L Temperature Source Temporal Temporal Pulse Rate (60-100) 70 77 Pulse Location Monitor Monitor Respiratory Rate (12-18) 18 18 Respiratory rate source Observation Observation Oxygen Delivery Method Nasal Cannula O2 L/MIN (L/min) 3 3 Blood Pressure (90/60-120/80) 152/59 H 152/72 H Blood Pressure Mean (mm Hg) 90 98 Source Monitor Monitor Position Semi-Fowlers Sitting Blood Pressure Location Left Arm Left Arm History Since Last Visit- (Skip if this is Patient's initial visit) Have you changed medications since your No No No last visit? Any new allergies or adverse reactions No No No Had a fall/change in ADL's that may No No No increase risk of falls Signs or symptoms of abuse and/or No No No neglect since last visit Have you been in the hospital since your No No No last visit? Has dressing in place as prescribed Yes Yes Yes Has compression in place as prescribed Yes Yes Yes Has offloadiing in place as prescribed No N/A N/A Experienced any changes in pain level or No No No management Left Footwear Regular Shoe Regular Shoe Right Footwear Regular Shoe Regular Shoe Pain Scale: 0-10 Numeric Is Patient Pain Free? Yes No Yes WC - Nurse 1 - General Ulcer Measurement Start: 08/14/22 10:00 Freq: Status: Active Protocol: Activity Type Activity Date Activity User E-sign Co-sign Detail Recorded Client Recorded Date Recorded By Document 08/14/22 10:00 RB [id number] 08/14/22 10:02 RB Document 08/21/22 10:11 AK [id number] 08/21/22 10:14 AK Document 08/28/22 09:17 [facility] [id number] 08/28/22 09:26 BMF 08/14/22 08/21/22 08/28/22 10:00 10:11 09:17 Wound Center Nurse 1 #2- RFA -Combined with other wound No -Current Size (cm) - Length 1.5 -Current Size (cm) - Width 1 -Current Size (cm) - Depth 0.1 -Total Square Cm 1.5 -Date of Last Picture (Recall this 08/28/22 field) -Photo Taken Yes -Epithelialization None Present -Tunneling No -Undermining/Tunneling No -Circular Undermining No -Exudate Amt Medium -Exudate Type Sanguineous -Wound Margin Distinct, Outline Attached -Granulation Amt Medium (34-66%) -Granulation Quality Red -Slough/Fibrin Yes -Necrosis Amt Medium (34-66%) -Necrotic Tissue Type Adherent Slough -Texture (Alyson-wound Skin Appearance) Assessed, Scarring -Moisture (Alyson-wound Skin Appearance) Assessed -Color (Alyson-wound Skin Appearance) Assessed -Temperature (Alyson-wound Skin No Abnormality Appearance) (Pt Warm) -Tenderness on Palpation (Alyson-wound No Skin Appearance) -Ulcer Cleansing Rinsed/ Irrigated with Saline -Foul Odor after Cleansing No -Anesthetic Used 5% Lidocaine Gel #1 R Lat LE -Combined with other wound No No No -Current Size (cm) - Length 4 3.6 3.3 -Current Size (cm) - Width 2.3 2 1.8 -Current Size (cm) - Depth 0.1 0.2 0.1 -Total Square Cm 9.2 7.2 5.94 -Date of Last Picture (Recall this 08/21/22 08/28/22 field) -Photo Taken Yes Yes Yes -Epithelialization Small 1-33% -Tunneling No No No -Undermining/Tunneling No No No -Circular Undermining No No No -Change in Wound Grade/Stage No -Exudate Amt Medium Medium Small -Exudate Type Serosanguineous Serosanguineous Serosanguineous -Wound Margin Distinct, Distinct, Flat & Intact Outline Outline Attached Attached -Granulation Amt Medium (34-66%) Large (67-100%) Small (1-33%) -Granulation Quality [place] Pale,Red -Slough/Fibrin Yes Yes Yes -Necrosis Amt Small (1-33%) Small (1-33%) Medium (34-66%) -Necrotic Tissue Type Adherent Slough Adherent Slough Adherent Slough -Structure Exposed N/A N/A -Texture (Alyson-wound Skin Appearance) Assessed No Abnormality, Assessed, Assessed Scarring -Moisture (Alyson-wound Skin Appearance) Assessed,Dry/ No Abnormality, Assessed Scaly Assessed -Color (Alyson-wound Skin Appearance) Assessed No Abnormality, Assessed Assessed -Temperature (Alyson-wound Skin No Abnormality No Abnormality No Abnormality Appearance) (Pt Warm) (Pt Warm) (Pt Warm) -Tenderness on Palpation (Alyson-wound No No No Skin Appearance) -Ulcer Cleansing Wound Cleanser Rinsed/ Soap and Water Irrigated with Saline -Foul Odor after Cleansing No No No -Anesthetic Used 5% Lidocaine 5% Lidocaine 5% Lidocaine Gel Gel Gel Lower Limb Edema Present Yes Yes Right Calf (cm) 40 40.5 Right Ankle (cm) 28 24.7 WC - Nurse 2 - General Ulcer CM Notes Start: 08/14/22 10:00 Freq: Status: Active Protocol: Activity Type Activity Date Activity User E-sign Co-sign Detail Recorded Client Recorded Date Recorded By Document 08/14/22 10:18 [id number] 08/14/22 10:22 Document 08/21/22 09:55 [id number] 08/21/22 09:57 Document 08/28/22 09:36 [id number] 08/28/22 09:41 08/14/22 08/21/22 08/28/22 10:18 09:55 09:36 Wound Center Nurse 2 #2- RFA -Correct Patient No -Correct Side, Site, Position No -Correct Procedure No -Procedure Performed No -Wound/Ulcer Outcome Not Healed #1 R Lat LE -Time 10:19 09:56 09:37 -Correct Patient Yes Yes Yes -Correct Side, Site, Position Yes Yes Yes -Correct Procedure Yes Yes Yes -Procedure Performed Yes Yes Yes -Type of Procedure Debridement Debridement Debridement -Clinical Debridement Subcutaneous Subcutaneous Subcutaneous -Tissue Removed Subcutaneous Subcutaneous Subcutaneous -Post Debridement (cm) - Length 4.0 4 3.5 -Post Debridement (cm) - Width 2.0 2 1.8 -Post Debridement (cm) - Depth 0.2 0.2 0.2 -Total Square (Post) (cm) 8.00 8 6.30 -Area of Debridement (cm) - Length 4.0 4 3.5 -Area of Debridement (cm) - Width 2.0 2 1.8 -Total Square (Area) (cm) 8.00 8 6.30 -Tunneling No No No -Undermining/Tunneling No No No -Circular Undermining No No No -Wound/Ulcer Outcome Not Healed Not Healed Not Healed -Ulcer Cleansing Rinsed/ Rinsed/ Rinsed/ Irrigated with Irrigated with Irrigated with Saline Saline Saline -Foul Odor after Cleansing No No No -Bioengineered Tissue No No No -Bleeding Controlled with Pressure Pressure Pressure -Treatment Response Procedure Not Procedure Procedure Tolerated Well Tolerated Well Tolerated Well -Offloading No No No -Debridement - Subq, 1st 20sq cm Yes Yes Yes Pain Scale: 0-10 Numeric Is Patient Pain Free? Yes Yes Yes WC - Nurse 3 - General Ulcer D/C NN Start: 08/14/22 10:00 Freq: Status: Active Protocol: Activity Type Activity Date Activity User E-sign Co-sign Detail Recorded Client Recorded Date Recorded By Document 08/14/22 10:33 DL [id number] 08/14/22 10:34 DL Document 08/21/22 10:11 AK [id number] 08/21/22 10:14 AK Document 08/28/22 09:46 AK [id number] 08/28/22 09:47 AK 08/14/22 08/21/22 08/28/22 10:33 10:11 09:46 Wound Care Nurse 3 #2- RFA -Ulcer Cleansing Rinsed/ Irrigated with Saline -Foul Odor after Cleansing No -Negative Pressure Wound Therapy N/A -Primary Dressing Applied C Hydrogel ($), NonAdherent Contact Layer -Other Dressing coban -Primary Dressing Covered/Secured with Dry Gauze & Roll Gauze, Secured with Tape #1 R Lat LE -Ulcer Cleansing Rinsed/ Rinsed/ Rinsed/ Irrigated with Irrigated with Irrigated with Saline Saline Saline -Foul Odor after Cleansing No No No -Negative Pressure Wound Therapy N/A N/A -Primary Dressing Applied Promogran Promogran Promogran Peggy Matter Peggy Matter Peggy Matter -Primary Dressing Covered/Secured with Dry Gauze & Dry Gauze & Dry Gauze & Roll Gauze, Roll Gauze, Roll Gauze, Secured with Secured with Secured with Tape Tape Tape -Other Covering tubigrip -Promogran Peggy Matter 1 1 1 Right -Lotion applied to leg before No compression wrap -Tubular Bandage Single Layer -Size of Tubigrip Used Size F -Size F ($) 1 -Other own Treatment Response Procedure Tolerated Well Vital Signs O2 L/MIN (L/min) 3 Pain Scale: 0-10 Numeric Is Patient Pain Free? Yes No Yes WC - Visit Discharge Discharge Condition Stable Stable Stable Ambulatory Status Ambulatory Ambulatory Ambulatory Transportation Private Auto Private Auto Private Auto Medication Reconcilliation completed & Yes Yes provided to patient/care provider Clinical Summary of Care Provided Yes Yes Facility Type Home Health Orders Sent Yes Additional Wound Wound debrided: forearm wound Laterality: Right Wound Grade/Stage: Stage II Type of Debridement: Excisional debridement Anesthesia Used: 5% Lidocaine Gel Depth: Down to and including healthy tissue Percentage of wound debrided: 100 Instrument Used: 3mm curette Tissue Removed: Devitalized tissue and slough Severity: Fat Layer Exposed Amount of bleeding with debridement: Mild Bleeding Controlled with: Pressure Patient tolerated procedure: Patient tolerated procedure well Assessment/Plan Assessment/Plan (1) Ulcer of right lower extremity with fat layer exposed: CODE(S): L97.912 - Non-pressure chronic ulcer of unspecified part of right lower leg with fat layer exposed (2) Venous ulcer of right leg: CODE(S): I83.019 - Varicose veins of right lower extremity with ulcer of unspecified site; L97.919 - Non-pressure chronic ulcer of unspecified part of right lower leg with unspecified severity (3) Open wound of right forearm without complication: CODE(S): S51.801A - Unspecified open wound of right forearm, initial encounter (4) Smoking greater than 30 pack years: CODE(S): F17.210 - Nicotine dependence, cigarettes, uncomplicated (5) Essential hypertension: CODE(S): I10 - Essential (primary) hypertension PLAN: Plan Patient was evaluated at the wound center today. Wound care - Right lateral leg ulcer apply moistened Peggy covered with gauze after washing ulcer with soap and water ideally daily, but at least 3 times per week when home health is able to do it. Right forearm place collagen hydrogel covered with adaptic and topped with gauze daily after washing with soap and water. Compression - Single layer tubigrip. Vascular studies done at [facility] on 06/02/22. Arterial studies Right JOI - 0.78, Left JOI - 0.5. Mild right lower extremity arterial disease at rest. Moderated left lower extremity arterial disease. Venous studies showed no evidence of abnormalities bilaterally but study was technically limited due to heavy edema. Calf veins poorly visualized. Enlarged lymph node noted in the right inguinal canal, measuring approximately 3.81 x 2.82 x 1.36 cm. He had an appointment with Dr. Hidalgo, who states continue compression. Encouraged to eat a diet high in protein and increase vitamin C intake to help with wound healing. Also eat a diet with low sodium to help decrease edema and control blood pressure. Encouraged patient to stop smoking as it may have deleterious effects on wound healing. He does turn his oxygen off and smoke outside when he does smoke. Follow up one week.
[2022-09-04 09:26] VITALS: BP 141/67; PULSE 78; TEMP 35.9; BMI 38.1
--- NOTE | 2022-09-04 11:07 | PN.PCM_ITS ---
History of Present Illness Date of Service: 09/04/22 Chief Complaint: Right lateral leg ulcer History of Wound: 62 year old male presents with a non healing ulcer on his right lateral leg that he bumped it awhile ago. He has had a venous procedure by Dr. Hidalgo not too long ago. He wears oxygen and states that he is trying to quit smoking, he states he smokes a couple per day now, some days he doesn't smoke at all. He has a significant cardiac and respiratory history. He is a poor historian. Wound care - Santyl nickel thickness covered with gauze daily or every other day. Tubigrip for compression. Today he denies fever, chills, nausea or vomiting. He states he has a good appetite. Progress of Wound: Right lateral leg ulcer cluster wound bed is pink with an enlarging healed skin bridge in the center of the ulcer. The wound on his right forearm is a superficial skin tear with pink wound bed and smaller in size. Right upper leg ulcer is healed. Objective Data Objective Data Vital Signs: Vital Signs Temp Pulse Resp BP O2 Del Method O2 Flow Rate 96.7 F L 78 18 141/67 H Nasal Cannula 3 09/04/22 09:26 09/04/22 09:26 08/28/22 09:17 09/04/22 09:26 08/28/22 09:17 08/28/22 09:17 Oxygen Flow Rate (L/min) 3 Oxygen Delivery Method Nasal Cannula Weight: 243 lb 11.572 oz Body Mass Index (BMI) 38.1 Charges/Coding Procedures Integumentary [id number]: [id number] Shari subq tissue 20 sq cm/< Debridement Note Debridement Note Wound debrided: lateral leg ulcer Laterality: Right Wound Grade/Stage: Stage II Type of Debridement: Excisional debridement Anesthesia Used: 5% Lidocaine Gel Depth: Down to and including healthy tissue and in the subcutaneous layer Percentage of wound debrided: 100 Instrument Used: 3mm curette Tissue Removed: Devitalized tissue and slough Severity: Fat Layer Exposed Amount of bleeding with debridement: Mild Bleeding Controlled with: Compression and gauze Patient tolerated procedure: Patient tolerated procedure well Post-Debridement Measurements and Additional Note: Post-Debridement Measurements/Treatment KHAI - Nurse 1 - General Ulcer Assessment Start: 08/14/22 10:00 Freq: Status: Active Protocol: WC.LOWEXT Activity Type Activity Date Activity User E-sign Co-sign Detail Recorded Client Recorded Date Recorded By Document 08/14/22 10:00 RB [id number] 08/14/22 10:02 RB Document 08/21/22 10:11 AK [id number] 08/21/22 10:14 AK Document 08/28/22 09:17 F [id number] 08/28/22 09:26 BM Document 09/04/22 09:26 KR [id number] 09/04/22 09:28 KR 08/14/22 08/21/22 08/28/22 10:00 10:11 09:17 WC - Today's Visit Information Type of service Nurse-only Follow-up Visit Follow-up Visit Visit (Physician/STUDENT FINANCIAL SERVICES COUNSELOR (Physician/STUDENT FINANCIAL SERVICES COUNSELOR ) ) Arrival Mode Ambulatory Ambulatory Ambulatory Transfer Assistance None None Patient Identification Verified (Name & Yes Yes Yes ) Patient Requires Transmission-Based No No No Precautions Height and Weight Body Mass Index (BMI) 38.1 38.1 38.1 BMI Classification Obese Obese Obese Vital Signs Temperature (97.8 F-99.1 F) 97.5 F L 96.2 F L Temperature Source Temporal Temporal Pulse Rate (60-100) 70 77 Pulse Location Monitor Monitor Respiratory Rate (12-18) 18 18 Respiratory rate source Observation Observation Oxygen Delivery Method Nasal Cannula O2 L/MIN (L/min) 3 3 Blood Pressure (90/60-120/80) 152/59 H 152/72 H Blood Pressure Mean (mm Hg) 90 98 Source Monitor Monitor Position Semi-Fowlers Sitting Blood Pressure Location Left Arm Left Arm History Since Last Visit- (Skip if this is Patient's initial visit) Have you changed medications since your No No No last visit? Any new allergies or adverse reactions No No No Had a fall/change in ADL's that may No No No increase risk of falls Signs or symptoms of abuse and/or No No No neglect since last visit Have you been in the hospital since your No No No last visit? Has dressing in place as prescribed Yes Yes Yes Has compression in place as prescribed Yes Yes Yes Has offloadiing in place as prescribed No N/A N/A Experienced any changes in pain level or No No No management Left Footwear Regular Shoe Regular Shoe Right Footwear Regular Shoe Regular Shoe Pain Scale: 0-10 Numeric Is Patient Pain Free? Yes No Yes 09/04/22 09:26 WC - Today's Visit Information Type of service Follow-up Visit (Physician/STUDENT FINANCIAL SERVICES COUNSELOR ) Arrival Mode Ambulatory Transfer Assistance Patient Identification Verified (Name & Yes ) Patient Requires Transmission-Based Precautions Height and Weight Body Mass Index (BMI) 38.1 BMI Classification Obese Vital Signs Temperature (97.8 F-99.1 F) 96.7 F L Temperature Source Temporal Pulse Rate (60-100) 78 Pulse Location Monitor Respiratory Rate (12-18) Respiratory rate source Oxygen Delivery Method O2 L/MIN (L/min) Blood Pressure (90/60-120/80) 141/67 H Blood Pressure Mean (mm Hg) 91 Source Monitor Position Supine Blood Pressure Location Right Arm History Since Last Visit- (Skip if this is Patient's initial visit) Have you changed medications since your No last visit? Any new allergies or adverse reactions No Had a fall/change in ADL's that may No increase risk of falls Signs or symptoms of abuse and/or No neglect since last visit Have you been in the hospital since your No last visit? Has dressing in place as prescribed Yes Has compression in place as prescribed Yes Has offloadiing in place as prescribed N/A Experienced any changes in pain level or No management Left Footwear Regular Shoe Right Footwear Regular Shoe Pain Scale: 0-10 Numeric Is Patient Pain Free? Yes - Nurse 1 - General Ulcer Measurement Start: 08/14/22 10:00 Freq: Status: Active Protocol: Activity Type Activity Date Activity User E-sign Co-sign Detail Recorded Client Recorded Date Recorded By Document 08/14/22 10:00 RB [id number] 08/14/22 10:02 RB Document 08/21/22 10:11 AK [id number] 08/21/22 10:14 AK Document 08/28/22 09:17 [facility] [id number] 08/28/22 09:26 BM Document 09/04/22 09:26 KR [id number] 09/04/22 09:28 KR 08/14/22 08/21/22 08/28/22 10:00 10:11 09:17 Wound Center Nurse 1 #2- RFA -Combined with other wound No -Current Size (cm) - Length 1.5 -Current Size (cm) - Width 1 -Current Size (cm) - Depth 0.1 -Total Square Cm 1.5 -Date of Last Picture (Recall this 08/28/22 field) -Photo Taken Yes -Epithelialization None Present -Tunneling No -Undermining/Tunneling No -Circular Undermining No -Exudate Amt Medium -Exudate Type Sanguineous -Wound Margin Distinct, Outline Attached -Granulation Amt Medium (34-66%) -Granulation Quality Red -Slough/Fibrin Yes -Necrosis Amt Medium (34-66%) -Necrotic Tissue Type Adherent Slough -Texture (Alyson-wound Skin Appearance) Assessed, Scarring -Moisture (Alyson-wound Skin Appearance) Assessed -Color (Alyson-wound Skin Appearance) Assessed -Temperature (Alyson-wound Skin No Abnormality Appearance) (Pt Warm) -Tenderness on Palpation (Alyson-wound No Skin Appearance) -Ulcer Cleansing Rinsed/ Irrigated with Saline -Foul Odor after Cleansing No -Anesthetic Used 5% Lidocaine Gel #1 R Lat LE -Combined with other wound No No No -Current Size (cm) - Length 4 3.6 3.3 -Current Size (cm) - Width 2.3 2 1.8 -Current Size (cm) - Depth 0.1 0.2 0.1 -Total Square Cm 9.2 7.2 5.94 -Date of Last Picture (Recall this 08/21/22 08/28/22 field) -Photo Taken Yes Yes Yes -Epithelialization Small 1-33% -Tunneling No No No -Undermining/Tunneling No No No -Circular Undermining No No No -Change in Wound Grade/Stage No -Exudate Amt Medium Medium Small -Exudate Type Serosanguineous Serosanguineous Serosanguineous -Wound Margin Distinct, Distinct, Flat & Intact Outline Outline Attached Attached -Granulation Amt Medium (34-66%) Large (67-100%) Small (1-33%) -Granulation Quality Bucklin Bucklin Pale,Red -Slough/Fibrin Yes Yes Yes -Necrosis Amt Small (1-33%) Small (1-33%) Medium (34-66%) -Necrotic Tissue Type Adherent Slough Adherent Slough Adherent Slough -Structure Exposed N/A N/A -Texture (Alyson-wound Skin Appearance) Assessed No Abnormality, Assessed, Assessed Scarring -Moisture (Alyson-wound Skin Appearance) Assessed,Dry/ No Abnormality, Assessed Scaly Assessed -Color (Alyson-wound Skin Appearance) Assessed No Abnormality, Assessed Assessed -Temperature (Alyson-wound Skin No Abnormality No Abnormality No Abnormality Appearance) (Pt Warm) (Pt Warm) (Pt Warm) -Tenderness on Palpation (Alyson-wound No No No Skin Appearance) -Ulcer Cleansing Wound Cleanser Rinsed/ Soap and Water Irrigated with Saline -Foul Odor after Cleansing No No No -Anesthetic Used 5% Lidocaine 5% Lidocaine 5% Lidocaine Gel Gel Gel Lower Limb Edema Present Yes Yes Right Calf (cm) 40 40.5 Right Ankle (cm) 28 24.7 09/04/22 09:26 Wound Center Nurse 1 #2- RFA -Combined with other wound -Current Size (cm) - Length 3.2 -Current Size (cm) - Width 1.5 -Current Size (cm) - Depth 0.2 -Total Square Cm 4.80 -Date of Last Picture (Recall this field) -Photo Taken -Epithelialization -Tunneling -Undermining/Tunneling -Circular Undermining -Exudate Amt Small -Exudate Type Serosanguineous -Wound Margin Distinct, Outline Attached -Granulation Amt Medium (34-66%) -Granulation Quality Bucklin -Slough/Fibrin -Necrosis Amt None Present (0 %) -Necrotic Tissue Type -Texture (Alyson-wound Skin Appearance) Assessed, Scarring -Moisture (Alyson-wound Skin Appearance) Assessed,Dry/ Scaly -Color (Alyson-wound Skin Appearance) No Abnormality, Assessed -Temperature (Alyson-wound Skin No Abnormality Appearance) (Pt Warm) -Tenderness on Palpation (Alyson-wound No Skin Appearance) -Ulcer Cleansing Rinsed/ Irrigated with Saline -Foul Odor after Cleansing No -Anesthetic Used 5% Lidocaine Gel #1 R Lat LE -Combined with other wound -Current Size (cm) - Length 0.7 -Current Size (cm) - Width 0.4 -Current Size (cm) - Depth 0.1 -Total Square Cm 0.28 -Date of Last Picture (Recall this field) -Photo Taken -Epithelialization -Tunneling -Undermining/Tunneling -Circular Undermining -Change in Wound Grade/Stage -Exudate Amt None Present -Exudate Type -Wound Margin Distinct, Outline Attached -Granulation Amt Small (1-33%) -Granulation Quality Bucklin -Slough/Fibrin -Necrosis Amt None Present (0 %) -Necrotic Tissue Type -Structure Exposed -Texture (Alyson-wound Skin Appearance) Assessed, Scarring -Moisture (Alyson-wound Skin Appearance) Assessed,Dry/ Scaly -Color (Alyson-wound Skin Appearance) No Abnormality, Assessed -Temperature (Alyson-wound Skin No Abnormality Appearance) (Pt Warm) -Tenderness on Palpation (Alyson-wound No Skin Appearance) -Ulcer Cleansing Rinsed/ Irrigated with Saline -Foul Odor after Cleansing No -Anesthetic Used 5% Lidocaine Gel Lower Limb Edema Present Right Calf (cm) Right Ankle (cm) WC - Nurse 2 - General Ulcer CM Notes Start: 08/14/22 10:00 Freq: Status: Active Protocol: Activity Type Activity Date Activity User E-sign Co-sign Detail Recorded Client Recorded Date Recorded By Document 08/14/22 10:18 [id number] 08/14/22 10:22 Document 08/21/22 09:55 [id number] 08/21/22 09:57 Document 08/28/22 09:36 [id number] 08/28/22 09:41 Document 09/04/22 09:34 [id number] 09/04/22 09:39 08/14/22 08/21/22 08/28/22 10:18 09:55 09:36 Wound Center Nurse 2 #2- RFA -Time -Correct Patient No -Correct Side, Site, Position No -Correct Procedure No -Procedure Performed No -Type of Procedure -Clinical Debridement -Tissue Removed -Post Debridement (cm) - Length -Post Debridement (cm) - Width -Post Debridement (cm) - Depth -Total Square (Post) (cm) -Area of Debridement (cm) - Length -Area of Debridement (cm) - Width -Total Square (Area) (cm) -Tunneling -Undermining/Tunneling -Circular Undermining -Wound/Ulcer Outcome Not Healed -Ulcer Cleansing -Foul Odor after Cleansing -Bioengineered Tissue -Bleeding Controlled with -Treatment Response -Offloading -Debridement - Subq, 1st 20sq cm #1 R Lat LE -Time 10:19 09:56 09:37 -Correct Patient Yes Yes Yes -Correct Side, Site, Position Yes Yes Yes -Correct Procedure Yes Yes Yes -Procedure Performed Yes Yes Yes -Type of Procedure Debridement Debridement Debridement -Clinical Debridement Subcutaneous Subcutaneous Subcutaneous -Tissue Removed Subcutaneous Subcutaneous Subcutaneous -Post Debridement (cm) - Length 4.0 4 3.5 -Post Debridement (cm) - Width 2.0 2 1.8 -Post Debridement (cm) - Depth 0.2 0.2 0.2 -Total Square (Post) (cm) 8.00 8 6.30 -Area of Debridement (cm) - Length 4.0 4 3.5 -Area of Debridement (cm) - Width 2.0 2 1.8 -Total Square (Area) (cm) 8.00 8 6.30 -Tunneling No No No -Undermining/Tunneling No No No -Circular Undermining No No No -Wound/Ulcer Outcome Not Healed Not Healed Not Healed -Ulcer Cleansing Rinsed/ Rinsed/ Rinsed/ Irrigated with Irrigated with Irrigated with Saline Saline Saline -Foul Odor after Cleansing No No No -Bioengineered Tissue No No No -Bleeding Controlled with Pressure Pressure Pressure -Treatment Response Procedure Not Procedure Procedure Tolerated Well Tolerated Well Tolerated Well -Offloading No No No -Debridement - Subq, 1st 20sq cm Yes Yes Yes Pain Scale: 0-10 Numeric Is Patient Pain Free? Yes Yes Yes 09/04/22 09:34 Wound Center Nurse 2 #2- RFA -Time 09:39 -Correct Patient Yes -Correct Side, Site, Position Yes -Correct Procedure Yes -Procedure Performed Yes -Type of Procedure Debridement -Clinical Debridement Subcutaneous -Tissue Removed Subcutaneous -Post Debridement (cm) - Length 0.7 -Post Debridement (cm) - Width 0.6 -Post Debridement (cm) - Depth 0.1 -Total Square (Post) (cm) 0.42 -Area of Debridement (cm) - Length 0.7 -Area of Debridement (cm) - Width 0.6 -Total Square (Area) (cm) 0.42 -Tunneling No -Undermining/Tunneling No -Circular Undermining No -Wound/Ulcer Outcome Not Healed -Ulcer Cleansing Rinsed/ Irrigated with Saline -Foul Odor after Cleansing No -Bioengineered Tissue No -Bleeding Controlled with Pressure -Treatment Response Procedure Tolerated Well -Offloading No -Debridement - Subq, 1st 20sq cm No #1 R Lat LE -Time 09:35 -Correct Patient Yes -Correct Side, Site, Position Yes -Correct Procedure Yes -Procedure Performed Yes -Type of Procedure Debridement -Clinical Debridement Subcutaneous -Tissue Removed Subcutaneous -Post Debridement (cm) - Length 3.0 -Post Debridement (cm) - Width 1.8 -Post Debridement (cm) - Depth 0.1 -Total Square (Post) (cm) 5.40 -Area of Debridement (cm) - Length 3.0 -Area of Debridement (cm) - Width 1.8 -Total Square (Area) (cm) 5.40 -Tunneling No -Undermining/Tunneling No -Circular Undermining No -Wound/Ulcer Outcome Not Healed -Ulcer Cleansing Rinsed/ Irrigated with Saline -Foul Odor after Cleansing No -Bioengineered Tissue No -Bleeding Controlled with Pressure -Treatment Response Procedure Tolerated Well -Offloading No -Debridement - Subq, 1st 20sq cm Yes Pain Scale: 0-10 Numeric Is Patient Pain Free? Yes WC - Nurse 3 - General Ulcer D/C NN Start: 08/14/22 10:00 Freq: Status: Active Protocol: Activity Type Activity Date Activity User E-sign Co-sign Detail Recorded Client Recorded Date Recorded By Document 08/14/22 10:33 DL [id number] 08/14/22 10:34 DL Document 08/21/22 10:11 AK [id number] 08/21/22 10:14 AK Document 08/28/22 09:46 AK [id number] 08/28/22 09:47 AK 08/14/22 08/21/22 08/28/22 10:33 10:11 09:46 Wound Care Nurse 3 #2- RFA -Ulcer Cleansing Rinsed/ Irrigated with Saline -Foul Odor after Cleansing No -Negative Pressure Wound Therapy N/A -Primary Dressing Applied C Hydrogel ($), NonAdherent Contact Layer -Other Dressing coban -Primary Dressing Covered/Secured with Dry Gauze & Roll Gauze, Secured with Tape #1 R Lat LE -Ulcer Cleansing Rinsed/ Rinsed/ Rinsed/ Irrigated with Irrigated with Irrigated with Saline Saline Saline -Foul Odor after Cleansing No No No -Negative Pressure Wound Therapy N/A N/A -Primary Dressing Applied Promogran Promogran Promogran Peggy Matter Peggy Matter Peggy Matter -Primary Dressing Covered/Secured with Dry Gauze & Dry Gauze & Dry Gauze & Roll Gauze, Roll Gauze, Roll Gauze, Secured with Secured with Secured with Tape Tape Tape -Other Covering tubigrip -Promogran Peggy Matter 1 1 1 Right -Lotion applied to leg before No compression wrap -Tubular Bandage Single Layer -Size of Tubigrip Used Size F -Size F ($) 1 -Other own Treatment Response Procedure Tolerated Well Vital Signs O2 L/MIN (L/min) 3 Pain Scale: 0-10 Numeric Is Patient Pain Free? Yes No Yes WC - Visit Discharge Discharge Condition Stable Stable Stable Ambulatory Status Ambulatory Ambulatory Ambulatory Transportation Private Auto Private Auto Private Auto Medication Reconcilliation completed & Yes Yes provided to patient/care provider Clinical Summary of Care Provided Yes Yes Facility Type Home Health Orders Sent Yes Additional Wound Wound debrided: forearm wound Laterality: Right Wound Grade/Stage: Stage II Type of Debridement: Excisional debridement Anesthesia Used: 5% Lidocaine Gel Depth: Down to and including healthy tissue Percentage of wound debrided: 100 Instrument Used: 3mm curette Tissue Removed: Devitalized tissue and slough Severity: Fat Layer Exposed Amount of bleeding with debridement: Mild Bleeding Controlled with: Pressure Patient tolerated procedure: Patient tolerated procedure well Assessment/Plan Assessment/Plan (1) Ulcer of right lower extremity with fat layer exposed: CODE(S): L97.912 - Non-pressure chronic ulcer of unspecified part of right lower leg with fat layer exposed (2) Venous ulcer of right leg: CODE(S): I83.019 - Varicose veins of right lower extremity with ulcer of unspecified site; L97.919 - Non-pressure chronic ulcer of unspecified part of right lower leg with unspecified severity (3) Open wound of right forearm without complication: CODE(S): S51.801A - Unspecified open wound of right forearm, initial encounter (4) Smoking greater than 30 pack years: CODE(S): F17.210 - Nicotine dependence, cigarettes, uncomplicated (5) Essential hypertension: CODE(S): I10 - Essential (primary) hypertension PLAN: Plan Patient was evaluated at the wound center today. Wound care - Right lateral leg ulcer apply moistened Peggy covered with gauze after washing ulcer with soap and water ideally daily, but at least 3 times per week when home health is able to do it. Right forearm place collagen hydrogel covered with adaptic and topped with gauze daily after washing with soap and water. Compression - Single layer tubigrip. Vascular studies done at [facility] on 06/02/22. Arterial studies Right JOI - 0.78, Left JOI - 0.5. Mild right lower extremity arterial disease at rest. Moderated left lower extremity arterial disease. Venous studies showed no evidence of abnormalities bilaterally but study was technically limited due to heavy edema. Calf veins poorly visualized. Enlarged lymph node noted in the right inguinal canal, measuring approximately 3.81 x 2.82 x 1.36 cm. He had an appointment with Dr. Hidalgo, who states continue compression. Encouraged to eat a diet high in protein and increase vitamin C intake to help with wound healing. Also eat a diet with low sodium to help decrease edema and control blood pressure. Encouraged patient to stop smoking as it may have deleterious effects on wound healing. He does turn his oxygen off and smoke outside when he does smoke. Follow up one week.
== END 2022-09-06 23:59 | disposition home or self-care (01) ==
LOC: WC 09:15
PROVIDERS: Visit Provider Nurse Practitioner Family
DX: I83.018 Varicose veins of right lower extremity with ulcer other part of lower leg (principal); L97.812 Non-pressure chronic ulcer of other part of right lower leg with fat layer exposed; I10 Essential (primary) hypertension; I87.2 Venous insufficiency (chronic) (peripheral); F17.210 Nicotine dependence, cigarettes, uncomplicated; Z79.51 Long term (current) use of inhaled steroids; Z79.899 Other long term (current) drug therapy
CPT/HCPCS: 11042

== ENCOUNTER 2022-10-04 09:00 | Outpatient (RCR) | payer MEDICARE, MEDICAID, SELFPAY ==
[2022-09-07 00:34] VITALS: BP 141/67; PULSE 78; RESP 18; TEMP 35.9; BMI 38.1
[2022-09-11 09:23] VITALS: BP 151/62; PULSE 68; RESP 22; TEMP 35.8; BMI 38.1
--- NOTE | 2022-09-11 12:34 | PN.PCM_ITS ---
History of Present Illness Date of Service: 09/11/22 Chief Complaint: Right lateral leg ulcer History of Wound: 62 year old male presents with a non healing ulcer on his right lateral leg that he bumped it awhile ago. He has had a venous procedure by Dr. Hidalgo not too long ago. He wears oxygen and states that he is trying to quit smoking, he states he smokes a couple per day now, some days he doesn't smoke at all. He has a significant cardiac and respiratory history. He is a poor historian. Wound care - Santyl nickel thickness covered with gauze daily or every other day. Tubigrip for compression. Today he denies fever, chills, nausea or vomiting. He states he has a good appetite. Progress of Wound: Right lateral leg ulcer cluster wound bed is pink with an enlarging healed skin bridge in the center of the ulcer. The wound on his right forearm is a superficial skin tear that is healed today. Objective Data Objective Data Vital Signs: Vital Signs Temp Pulse Resp BP O2 Flow Rate 96.4 F L 68 22 H 151/62 H 3 09/11/22 09:23 09/11/22 09:23 09/11/22 09:23 09/11/22 09:23 09/07/22 00:34 Oxygen Flow Rate (L/min) 3 Weight: 243 lb 11.572 oz Body Mass Index (BMI) 38.1 Charges/Coding Procedures Integumentary 111xxx-113xx: 88158 Shari subq tissue 20 sq cm/< Debridement Note Debridement Note Wound debrided: lateral leg ulcer Laterality: Right Wound Grade/Stage: Stage II Type of Debridement: Excisional debridement Anesthesia Used: 5% Lidocaine Gel Depth: Down to and including healthy tissue and in the subcutaneous layer Percentage of wound debrided: 100 Instrument Used: 3mm curette Tissue Removed: Devitalized tissue and slough Severity: Fat Layer Exposed Amount of bleeding with debridement: Mild Bleeding Controlled with: Compression and gauze Patient tolerated procedure: Patient tolerated procedure well Post-Debridement Measurements and Additional Note: Post-Debridement Measurements/Treatment WC - Nurse 1 - General Ulcer Assessment Start: 09/11/22 09:22 Freq: Status: Active Protocol: MARYLU Activity Type Activity Date Activity User E-sign Co-sign Detail Recorded Client Recorded Date Recorded By Document 09/11/22 09:23 [id number] 09/11/22 09:35 09/11/22 09:23 WC - Today's Visit Information Type of service Follow-up Visit (Physician/EVENT REPRESENTATIVE ) Arrival Mode Ambulatory Transfer Assistance None Patient Identification Verified (Name & Yes ) Patient Requires Transmission-Based No Precautions Height and Weight Body Mass Index (BMI) 38.1 BMI Classification Obese Vital Signs Temperature (97.8 F-99.1 F) 96.4 F L Temperature Source Temporal Pulse Rate (60-100) 68 Pulse Location Monitor Respiratory Rate (12-18) 22 H Respiratory rate source Observation Blood Pressure (90/60-120/80) 151/62 H Blood Pressure Mean (mm Hg) 91 Source Monitor History Since Last Visit- (Skip if this is Patient's initial visit) Have you changed medications since your No last visit? Any new allergies or adverse reactions No Had a fall/change in ADL's that may No increase risk of falls Signs or symptoms of abuse and/or No neglect since last visit Have you been in the hospital since your No last visit? Has dressing in place as prescribed Yes Has compression in place as prescribed Yes Has offloadiing in place as prescribed N/A Experienced any changes in pain level or No management Pain Scale: 0-10 Numeric Is Patient Pain Free? Yes - Nurse 1 - General Ulcer Measurement Start: 09/11/22 09:22 Freq: Status: Active Protocol: Activity Type Activity Date Activity User E-sign Co-sign Detail Recorded Client Recorded Date Recorded By Document 09/11/22 09:23 [id number] 09/11/22 09:35 09/11/22 09:23 Wound Center Nurse 1 #2- RFA -Current Size (cm) - Length 0 -Current Size (cm) - Width 0 -Current Size (cm) - Depth 0 -Total Square Cm 0 -Photo Taken Yes -Exudate Amt None Present -Wound Margin Flat & Intact -Granulation Amt Large (67-100%) -Granulation Quality [place] -Necrosis Amt None Present (0 %) -Structure Exposed N/A -Texture (Alyson-wound Skin Appearance) Scarring -Moisture (Alyson-wound Skin Appearance) No Abnormality -Color (Alyson-wound Skin Appearance) No Abnormality -Temperature (Alyson-wound Skin No Abnormality Appearance) (Pt Warm) -Tenderness on Palpation (Alyson-wound No Skin Appearance) -Ulcer Cleansing Rinsed/ Irrigated with Saline -Foul Odor after Cleansing No #1 R Lat LE -Current Size (cm) - Length 2.2 -Current Size (cm) - Width 1.8 -Current Size (cm) - Depth 0.2 -Total Square Cm 3.96 -Photo Taken Yes -Exudate Amt Medium -Exudate Type Serosanguineous -Wound Margin Distinct, Outline Attached -Granulation Amt Medium (34-66%) -Granulation Quality [place] -Necrosis Amt Medium (34-66%) -Necrotic Tissue Type Adherent Slough -Structure Exposed N/A -Texture (Alyson-wound Skin Appearance) Scarring -Moisture (Alyson-wound Skin Appearance) Maceration -Color (Alyson-wound Skin Appearance) Hemosiderin Staining -Temperature (Alyson-wound Skin No Abnormality Appearance) (Pt Warm) -Tenderness on Palpation (Alyson-wound No Skin Appearance) -Ulcer Cleansing Soap and Water -Foul Odor after Cleansing No -Anesthetic Used 5% Lidocaine Gel Right Calf (cm) 40.2 Right Ankle (cm) 24.3 WC - Nurse 2 - General Ulcer CM Notes Start: 09/11/22 09:22 Freq: Status: Active Protocol: Activity Type Activity Date Activity User E-sign Co-sign Detail Recorded Client Recorded Date Recorded By Document 09/11/22 09:51 NUNU [id number] 09/11/22 09:56 NUNU 09/11/22 09:51 Wound Center Nurse 2 #2- RFA -Correct Patient No -Correct Side, Site, Position No -Correct Procedure No -Procedure Performed No -Post Debridement (cm) - Length 0 -Post Debridement (cm) - Width 0 -Post Debridement (cm) - Depth 0 -Total Square (Post) (cm) 0 -Area of Debridement (cm) - Length 0 -Area of Debridement (cm) - Width 0 -Total Square (Area) (cm) 0 -Wound/Ulcer Outcome Healed- Epithelialized #1 R Lat LE -Time 09:51 -Correct Patient Yes -Correct Side, Site, Position Yes -Correct Procedure Yes -Procedure Performed Yes -Type of Procedure Debridement -Clinical Debridement Subcutaneous -Tissue Removed Subcutaneous -Post Debridement (cm) - Length 2.7 -Post Debridement (cm) - Width 1.8 -Post Debridement (cm) - Depth 0.1 -Total Square (Post) (cm) 4.86 -Area of Debridement (cm) - Length 2.7 -Area of Debridement (cm) - Width 1.8 -Total Square (Area) (cm) 4.86 -Tunneling No -Undermining/Tunneling No -Circular Undermining No -Wound/Ulcer Outcome Not Healed -Ulcer Cleansing Rinsed/ Irrigated with Saline -Foul Odor after Cleansing No -Bioengineered Tissue No -Bleeding Controlled with Pressure -Treatment Response Procedure Tolerated Well -Offloading No -Debridement - Subq, 1st 20sq cm Yes Pain Scale: 0-10 Numeric Is Patient Pain Free? Yes - Nurse 3 - General Ulcer D/C NN Start: 09/11/22 09:22 Freq: Status: Active Protocol: Activity Type Activity Date Activity User E-sign Co-sign Detail Recorded Client Recorded Date Recorded By Document 09/11/22 10:09 EBENEZER [id number] 09/11/22 10:09 EBENEZER 09/11/22 10:09 Wound Care Nurse 3 #1 R Lat LE -Ulcer Cleansing Rinsed/ Irrigated with Saline -Foul Odor after Cleansing No -Negative Pressure Wound Therapy N/A -Primary Dressing Applied Promogran Peggy Matter -Primary Dressing Covered/Secured with Dry Gauze, Secured with Tape -Promogran Peggy Matter 1 Pain Scale: 0-10 Numeric Is Patient Pain Free? Yes - Visit Discharge Discharge Condition Stable Ambulatory Status Ambulatory Transportation Private Auto Medication Reconcilliation completed & Yes provided to patient/care provider Clinical Summary of Care Provided Yes Assessment/Plan Assessment/Plan (1) Ulcer of right lower extremity with fat layer exposed: CODE(S): L97.912 - Non-pressure chronic ulcer of unspecified part of right lower leg with fat layer exposed (2) Venous ulcer of right leg: CODE(S): I83.019 - Varicose veins of right lower extremity with ulcer of unspecified site; L97.919 - Non-pressure chronic ulcer of unspecified part of right lower leg with unspecified severity (3) Open wound of right forearm without complication: CODE(S): S51.801A - Unspecified open wound of right forearm, initial encounter (4) Smoking greater than 30 pack years: CODE(S): F17.210 - Nicotine dependence, cigarettes, uncomplicated (5) Essential hypertension: CODE(S): I10 - Essential (primary) hypertension PLAN: Plan Patient was evaluated at the wound center today. Wound care - Right lateral leg ulcer apply moistened Peggy covered with gauze after washing ulcer with soap and water ideally daily, but at least 3 times per week when home health is able to do it. Right forearm is healed. Massage with lotion daily. Compression - Single layer tubigrip. Vascular studies done at [facility] on 06/02/22. Arterial studies Right JOI - 0.78, Left JOI - 0.5. Mild right lower extremity arterial disease at rest. Moderated left lower extremity arterial disease. Venous studies showed no evidence of abnormalities bilaterally but study was technically limited due to heavy edema. Calf veins poorly visualized. Enlarged lymph node noted in the right inguinal canal, measuring approximately 3.81 x 2.82 x 1.36 cm. He had an appointment with Dr. Hidalgo, who states continue compression. Encouraged to eat a diet high in protein and increase vitamin C intake to help with wound healing. Also eat a diet with low sodium to help decrease edema and control blood pressure. Encouraged patient to stop smoking as it may have deleterious effects on wound healing. He does turn his oxygen off and smoke outside when he does smoke. Follow up one week.
[2022-09-27 09:06] VITALS: BP 135/63; PULSE 75; RESP 16; TEMP 35.9; BMI 38.1
--- NOTE | 2022-09-27 11:12 | PCM.WC.PN ---
History of Present Illness Date of Service: 09/27/22 Chief Complaint: Right lateral leg ulcer History of Wound: 62 year old male presents with a non healing ulcer on his right lateral leg that he bumped it awhile ago. He has had a venous procedure by Dr. Hidalgo not too long ago. He wears oxygen and states that he is trying to quit smoking, he states he smokes a couple per day now, some days he doesn't smoke at all. He has a significant cardiac and respiratory history. He is a poor historian. Wound care - Santyl nickel thickness covered with gauze daily or every other day. Tubigrip for compression. Today he denies fever, chills, nausea or vomiting. He states he has a good appetite. Progress of Wound: Right leg ulcer cluster wound bed is pink with an enlarging healed skin bridge in the center of the ulcer, it is improving. Objective Data Objective Data Vital Signs: Vital Signs Temp Pulse Resp BP O2 Del Method O2 Flow Rate 96.7 F L 75 16 135/63 H Nasal Cannula 3 09/27/22 09:06 09/27/22 09:06 09/27/22 09:06 09/27/22 09:06 09/27/22 09:06 09/27/22 09:41 Oxygen Flow Rate (L/min) 3 Oxygen Delivery Method Nasal Cannula Weight: 243 lb 11.572 oz Body Mass Index (BMI) 38.1 Charges/Coding Procedures Integumentary 111xxx-113xx: 78435 Shari subq tissue 20 sq cm/< Debridement Note Debridement Note Wound debrided: lateral leg ulcer Laterality: Right Wound Grade/Stage: Stage II Type of Debridement: Excisional debridement Anesthesia Used: 5% Lidocaine Gel Depth: Down to and including healthy tissue and in the subcutaneous layer Percentage of wound debrided: 100 Instrument Used: 3mm curette Tissue Removed: Devitalized tissue and slough Severity: Fat Layer Exposed Amount of bleeding with debridement: Mild Bleeding Controlled with: Compression and gauze Patient tolerated procedure: Patient tolerated procedure well Post-Debridement Measurements and Additional Note: Post-Debridement Measurements/Treatment KHAI - Nurse 1 - General Ulcer Assessment Start: 09/11/22 09:22 Freq: Status: Active Protocol: MARYLU Activity Type Activity Date Activity User E-sign Co-sign Detail Recorded Client Recorded Date Recorded By Document 09/11/22 09:23 DL [id number] 09/11/22 09:35 DL Document 09/27/22 09:06 NUNU [id number] 09/27/22 09:08 09/11/22 09/27/22 09:23 09:06 - Today's Visit Information Type of service Follow-up Visit Follow-up Visit (Physician/BARREL LEVELER (Physician/BARREL LEVELER ) ) Arrival Mode Ambulatory Ambulatory Transfer Assistance None Patient Identification Verified (Name & Yes Yes ) Patient Requires Transmission-Based No No Precautions Height and Weight Body Mass Index (BMI) 38.1 38.1 BMI Classification Obese Obese Vital Signs Temperature (97.8 F-99.1 F) 96.4 F L 96.7 F L Temperature Source Temporal Temporal Pulse Rate (60-100) 68 75 Pulse Location Monitor Monitor Respiratory Rate (12-18) 22 H 16 Respiratory rate source Observation Observation Oxygen Delivery Method Nasal Cannula O2 L/MIN (L/min) 3 Blood Pressure (90/60-120/80) 151/62 H 135/63 H Blood Pressure Mean (mm Hg) 91 87 Source Monitor Monitor Position Semi-Fowlers Blood Pressure Location Left Arm History Since Last Visit- (Skip if this is Patient's initial visit) Have you changed medications since your No No last visit? Any new allergies or adverse reactions No No Had a fall/change in ADL's that may No No increase risk of falls Signs or symptoms of abuse and/or No No neglect since last visit Have you been in the hospital since your No No last visit? Has dressing in place as prescribed Yes Yes Has compression in place as prescribed Yes Yes Has offloadiing in place as prescribed N/A N/A Experienced any changes in pain level or No No management Left Footwear Regular Shoe Right Footwear Regular Shoe Pain Scale: 0-10 Numeric Is Patient Pain Free? Yes Yes - Nurse 1 - General Ulcer Measurement Start: 09/11/22 09:22 Freq: Status: Active Protocol: Activity Type Activity Date Activity User E-sign Co-sign Detail Recorded Client Recorded Date Recorded By Document 09/11/22 09:23 DL [id number] 09/11/22 09:35 DL Document 09/27/22 09:06 [id number] 09/27/22 09:08 JF 09/11/22 09/27/22 09:23 09:06 Wound Center Nurse 1 #2- RFA -Current Size (cm) - Length 0 -Current Size (cm) - Width 0 -Current Size (cm) - Depth 0 -Total Square Cm 0 -Photo Taken Yes -Exudate Amt None Present -Wound Margin Flat & Intact -Granulation Amt Large (67-100%) -Granulation Quality [place] -Necrosis Amt None Present (0 %) -Structure Exposed N/A -Texture (Alyson-wound Skin Appearance) Scarring -Moisture (Alyson-wound Skin Appearance) No Abnormality -Color (Alyson-wound Skin Appearance) No Abnormality -Temperature (Alyson-wound Skin No Abnormality Appearance) (Pt Warm) -Tenderness on Palpation (Alyson-wound No Skin Appearance) -Ulcer Cleansing Rinsed/ Irrigated with Saline -Foul Odor after Cleansing No #1 R Lat LE cluster -Combined with other wound No -Current Size (cm) - Length 2.2 1.4 -Current Size (cm) - Width 1.8 0.2 -Current Size (cm) - Depth 0.2 0.1 -Total Square Cm 3.96 0.28 -Photo Taken Yes Yes -Epithelialization Large 67-100% -Tunneling No -Undermining/Tunneling No -Circular Undermining No -Exudate Amt Medium None Present -Exudate Type Serosanguineous -Wound Margin Distinct, Flat & Intact Outline Attached -Granulation Amt Medium (34-66%) Medium (34-66%) -Granulation Quality [place] -Slough/Fibrin Yes -Necrosis Amt Medium (34-66%) Large (67-100%) -Necrotic Tissue Type Adherent Slough Adherent Slough -Structure Exposed N/A N/A -Texture (Alyson-wound Skin Appearance) Scarring Assessed, Localized Edema -Moisture (Alyson-wound Skin Appearance) Maceration Assessed,Dry/ Scaly -Color (Alyson-wound Skin Appearance) Hemosiderin Assessed, Staining Hemosiderin Staining -Temperature (Alyson-wound Skin No Abnormality Appearance) (Pt Warm) -Tenderness on Palpation (Alyson-wound No Skin Appearance) -Ulcer Cleansing Soap and Water Rinsed/ Irrigated with Saline -Foul Odor after Cleansing No No -Anesthetic Used 5% Lidocaine 5% Lidocaine Gel Gel Lower Limb Edema Present Yes Right Calf (cm) 40.2 40 Right Ankle (cm) 24.3 25 - Nurse 2 - General Ulcer CM Notes Start: 09/11/22 09:22 Freq: Status: Active Protocol: Activity Type Activity Date Activity User E-sign Co-sign Detail Recorded Client Recorded Date Recorded By Document 09/11/22 09:51 [id number] 09/11/22 09:56 Document 09/27/22 09:20 [id number] 09/27/22 09:26 09/11/22 09/27/22 09:51 09:20 Wound Center Nurse 2 #2- RFA -Correct Patient No -Correct Side, Site, Position No -Correct Procedure No -Procedure Performed No -Post Debridement (cm) - Length 0 -Post Debridement (cm) - Width 0 -Post Debridement (cm) - Depth 0 -Total Square (Post) (cm) 0 -Area of Debridement (cm) - Length 0 -Area of Debridement (cm) - Width 0 -Total Square (Area) (cm) 0 -Wound/Ulcer Outcome Healed- Epithelialized #1 R Lat LE cluster -Time 09:51 09:21 -Correct Patient Yes Yes -Correct Side, Site, Position Yes Yes -Correct Procedure Yes Yes -Procedure Performed Yes Yes -Type of Procedure Debridement Debridement -Clinical Debridement Subcutaneous Subcutaneous -Tissue Removed Subcutaneous Subcutaneous -Post Debridement (cm) - Length 2.7 3.7 -Post Debridement (cm) - Width 1.8 1.7 -Post Debridement (cm) - Depth 0.1 0.1 -Total Square (Post) (cm) 4.86 6.29 -Area of Debridement (cm) - Length 2.7 3.7 -Area of Debridement (cm) - Width 1.8 1.7 -Total Square (Area) (cm) 4.86 6.29 -Tunneling No No -Undermining/Tunneling No No -Circular Undermining No No -Wound/Ulcer Outcome Not Healed Not Healed -Ulcer Cleansing Rinsed/ Rinsed/ Irrigated with Irrigated with Saline Saline -Foul Odor after Cleansing No No -Bioengineered Tissue No No -Bleeding Controlled with Pressure Pressure -Treatment Response Procedure Procedure Tolerated Well Tolerated Well -Offloading No No -Debridement - Subq, 1st 20sq cm Yes Yes Pain Scale: 0-10 Numeric Is Patient Pain Free? Yes Yes - Nurse 3 - General Ulcer D/C NN Start: 09/11/22 09:22 Freq: Status: Active Protocol: Activity Type Activity Date Activity User E-sign Co-sign Detail Recorded Client Recorded Date Recorded By Document 09/11/22 10:09 [place] [id number] 09/11/22 10:09 AK Document 09/27/22 09:41 RB [id number] 09/27/22 09:42 RB 09/11/22 09/27/22 10:09 09:41 Wound Care Nurse 3 #1 R Lat LE cluster -Ulcer Cleansing Rinsed/ Rinsed/ Irrigated with Irrigated with Saline Saline -Foul Odor after Cleansing No -Negative Pressure Wound Therapy N/A -Primary Dressing Applied Promogran NonAdherent Peggy Matter Contact Layer, Promogran Peggy Matter -Primary Dressing Covered/Secured with Dry Gauze, Dry Gauze & Secured with Roll Gauze, Tape Secured with Tape -Promogran Peggy Matter 1 1 Right -Tubular Bandage Single Layer -Size of Tubigrip Used Size D -Size D ($) 1 Left -Tubular Bandage Single Layer -Size of Tubigrip Used Size D -Size D ($) 1 Treatment Response Procedure Tolerated Well Vital Signs O2 L/MIN (L/min) 3 Pain Scale: 0-10 Numeric Is Patient Pain Free? Yes Yes WC - Visit Discharge Discharge Condition Stable Stable Ambulatory Status Ambulatory Ambulatory Transportation Private Auto Private Auto Medication Reconcilliation completed & Yes No provided to patient/care provider Clinical Summary of Care Provided Yes Yes Assessment/Plan Assessment/Plan (1) Ulcer of right lower extremity with fat layer exposed: CODE(S): L97.912 - Non-pressure chronic ulcer of unspecified part of right lower leg with fat layer exposed (2) Venous ulcer of right leg: CODE(S): I83.019 - Varicose veins of right lower extremity with ulcer of unspecified site; L97.919 - Non-pressure chronic ulcer of unspecified part of right lower leg with unspecified severity (3) Open wound of right forearm without complication: CODE(S): S51.801A - Unspecified open wound of right forearm, initial encounter (4) Smoking greater than 30 pack years: CODE(S): F17.210 - Nicotine dependence, cigarettes, uncomplicated (5) Essential hypertension: CODE(S): I10 - Essential (primary) hypertension PLAN: Plan Patient was evaluated at the wound center today. Wound care - Right lateral leg ulcer apply moistened Peggy covered with gauze after washing ulcer with soap and water ideally daily, but at least 3 times per week when home health is able to do it. Right forearm remains healed. Massage with lotion daily. Compression - Single layer tubigrip. Encouraged to bring his new compression stockings. Vascular studies done at [facility] on 06/02/22. Arterial studies Right JOI - 0.78, Left JOI - 0.5. Mild right lower extremity arterial disease at rest. Moderated left lower extremity arterial disease. Venous studies showed no evidence of abnormalities bilaterally but study was technically limited due to heavy edema. Calf veins poorly visualized. Enlarged lymph node noted in the right inguinal canal, measuring approximately 3.81 x 2.82 x 1.36 cm. He had an appointment with Dr. Hidalgo, who states continue compression. Encouraged to eat a diet high in protein and increase vitamin C intake to help with wound healing. Also eat a diet with low sodium to help decrease edema and control blood pressure. Encouraged patient to stop smoking as it may have deleterious effects on wound healing. He does turn his oxygen off and smoke outside when he does smoke. Follow up one week.
[2022-10-04 09:04] VITALS: BP 146/76; PULSE 78; RESP 16; TEMP 35.9; BMI 38.1
--- NOTE | 2022-10-04 12:01 | PN.PCM_ITS ---
History of Present Illness Date of Service: 10/04/22 Chief Complaint: Right lateral leg ulcer History of Wound: 62 year old male presents with a non healing ulcer on his right lateral leg that he bumped it awhile ago. He has had a venous procedure by Dr. Hidalgo not too long ago. He wears oxygen and states that he is trying to quit smoking, he states he smokes a couple per day now, some days he doesn't smoke at all. He has a significant cardiac and respiratory history. He is a poor historian. Wound care - Santyl nickel thickness covered with gauze daily or every other day. Tubigrip for compression. Today he denies fever, chills, nausea or vomiting. He states he has a good appetite. Progress of Wound: Right leg ulcer cluster wound bed is pink with an enlarging healed skin bridge in the center of the ulcer, it is improving in size and depth. Objective Data Objective Data Vital Signs: Vital Signs Temp Pulse Resp BP O2 Del Method O2 Flow Rate 96.7 F L 78 16 146/76 H Nasal Cannula 3 10/04/22 09:04 10/04/22 09:04 10/04/22 09:04 10/04/22 09:04 10/04/22 09:04 10/04/22 09:04 Oxygen Flow Rate (L/min) 3 Oxygen Delivery Method Nasal Cannula Weight: 243 lb 11.572 oz Body Mass Index (BMI) 38.1 Charges/Coding Procedures Integumentary 111xxx-113xx: 52040 Shari subq tissue 20 sq cm/< Debridement Note Debridement Note Wound debrided: lateral leg ulcer Laterality: Right Wound Grade/Stage: Stage II Type of Debridement: Excisional debridement Anesthesia Used: 5% Lidocaine Gel Depth: Down to and including healthy tissue and in the subcutaneous layer Percentage of wound debrided: 100 Instrument Used: 3mm curette Tissue Removed: Devitalized tissue and slough Severity: Fat Layer Exposed Amount of bleeding with debridement: Mild Bleeding Controlled with: Compression and gauze Patient tolerated procedure: Patient tolerated procedure well Post-Debridement Measurements and Additional Note: Post-Debridement Measurements/Treatment KHAI - Nurse 1 - General Ulcer Assessment Start: 09/11/22 09:22 Freq: Status: Active Protocol: MARYLU Activity Type Activity Date Activity User E-sign Co-sign Detail Recorded Client Recorded Date Recorded By Document 09/11/22 09:23 DL [id number] 09/11/22 09:35 DL Document 09/27/22 09:06 JF [id number] 09/27/22 09:08 JF Document 10/04/22 09:04 [facility] [id number] 10/04/22 09:10 BMF 09/11/22 09/27/22 10/04/22 09:23 09:06 09:04 - Today's Visit Information Type of service Follow-up Visit Follow-up Visit Follow-up Visit (Physician/GIS INSTRUCTOR (Physician/GIS INSTRUCTOR (Physician/GIS INSTRUCTOR ) ) ) Arrival Mode Ambulatory Ambulatory Ambulatory Transfer Assistance None None Patient Identification Verified (Name & Yes Yes Yes ) Patient Requires Transmission-Based No No No Precautions Height and Weight Body Mass Index (BMI) 38.1 38.1 38.1 BMI Classification Obese Obese Obese Vital Signs Temperature (97.8 F-99.1 F) 96.4 F L 96.7 F L 96.7 F L Temperature Source Temporal Temporal Temporal Pulse Rate (60-100) 68 75 78 Pulse Location Monitor Monitor Monitor Respiratory Rate (12-18) 22 H 16 16 Respiratory rate source Observation Observation Observation Oxygen Delivery Method Nasal Cannula Nasal Cannula O2 L/MIN (L/min) 3 3 Blood Pressure (90/60-120/80) 151/62 H 135/63 H 146/76 H Blood Pressure Mean (mm Hg) 91 87 99 Source Monitor Monitor Monitor Position Semi-Fowlers Sitting Blood Pressure Location Left Arm Left Arm History Since Last Visit- (Skip if this is Patient's initial visit) Have you changed medications since your No No No last visit? Any new allergies or adverse reactions No No No Had a fall/change in ADL's that may No No No increase risk of falls Signs or symptoms of abuse and/or No No No neglect since last visit Have you been in the hospital since your No No No last visit? Has dressing in place as prescribed Yes Yes Yes Has compression in place as prescribed Yes Yes Yes Has offloadiing in place as prescribed N/A N/A N/A Experienced any changes in pain level or No No No management Left Footwear Regular Shoe Regular Shoe Right Footwear Regular Shoe Regular Shoe Pain Scale: 0-10 Numeric Is Patient Pain Free? Yes Yes Yes - Nurse 1 - General Ulcer Measurement Start: 09/11/22 09:22 Freq: Status: Active Protocol: Activity Type Activity Date Activity User E-sign Co-sign Detail Recorded Client Recorded Date Recorded By Document 09/11/22 09:23 DL [id number] 09/11/22 09:35 DL Document 09/27/22 09:06 JF [id number] 09/27/22 09:08 JF Document 10/04/22 09:04 [facility] [id number] 10/04/22 09:10 BM 09/11/22 09/27/22 10/04/22 09:23 09:06 09:04 Wound Center Nurse 1 #2- RFA -Current Size (cm) - Length 0 -Current Size (cm) - Width 0 -Current Size (cm) - Depth 0 -Total Square Cm 0 -Photo Taken Yes -Exudate Amt None Present -Wound Margin Flat & Intact -Granulation Amt Large (67-100%) -Granulation Quality [place] -Necrosis Amt None Present (0 %) -Structure Exposed N/A -Texture (Alyson-wound Skin Appearance) Scarring -Moisture (Alyson-wound Skin Appearance) No Abnormality -Color (Alyson-wound Skin Appearance) No Abnormality -Temperature (Alyson-wound Skin No Abnormality Appearance) (Pt Warm) -Tenderness on Palpation (Alyson-wound No Skin Appearance) -Ulcer Cleansing Rinsed/ Irrigated with Saline -Foul Odor after Cleansing No #1 R Lat LE cluster -Combined with other wound No No -Current Size (cm) - Length 2.2 1.4 0.1 -Current Size (cm) - Width 1.8 0.2 0.1 -Current Size (cm) - Depth 0.2 0.1 0.1 -Total Square Cm 3.96 0.28 0.01 -Date of Last Picture (Recall this 10/04/22 field) -Photo Taken Yes Yes Yes -Epithelialization Large 67-100% None Present -Tunneling No No -Undermining/Tunneling No No -Circular Undermining No No -Exudate Amt Medium None Present None Present -Exudate Type Serosanguineous -Wound Margin Distinct, Flat & Intact Distinct, Outline Outline Attached Attached -Granulation Amt Medium (34-66%) Medium (34-66%) None Present (0 %) -Granulation Quality [place] Red -Slough/Fibrin Yes -Necrosis Amt Medium (34-66%) Large (67-100%) None Present (0 %) -Necrotic Tissue Type Adherent Slough Adherent Slough -Structure Exposed N/A N/A -Texture (Alyson-wound Skin Appearance) Scarring Assessed, Assessed Localized Edema -Moisture (Alyson-wound Skin Appearance) Maceration Assessed,Dry/ Assessed,Dry/ Scaly Scaly -Color (Alyson-wound Skin Appearance) Hemosiderin Assessed, Assessed Staining Hemosiderin Staining -Temperature (Alyson-wound Skin No Abnormality No Abnormality Appearance) (Pt Warm) (Pt Warm) -Tenderness on Palpation (Alyson-wound No No Skin Appearance) -Ulcer Cleansing Soap and Water Rinsed/ Rinsed/ Irrigated with Irrigated with Saline Saline -Foul Odor after Cleansing No No No -Anesthetic Used 5% Lidocaine 5% Lidocaine 5% Lidocaine Gel Gel Gel -Wound Comment(s) wound bed covered w/ dry crusty li Lower Limb Edema Present Yes Yes Right Calf (cm) 40.2 40 40 Right Ankle (cm) 24.3 25 25 - Nurse 2 - General Ulcer CM Notes Start: 09/11/22 09:22 Freq: Status: Active Protocol: Activity Type Activity Date Activity User E-sign Co-sign Detail Recorded Client Recorded Date Recorded By Document 09/11/22 09:51 [id number] 09/11/22 09:56 Document 09/27/22 09:20 [id number] 09/27/22 09:26 Document 10/04/22 09:37 [id number] 10/04/22 09:41 09/11/22 09/27/22 10/04/22 09:51 09:20 09:37 Wound Center Nurse 2 #2- RFA -Correct Patient No -Correct Side, Site, Position No -Correct Procedure No -Procedure Performed No -Post Debridement (cm) - Length 0 -Post Debridement (cm) - Width 0 -Post Debridement (cm) - Depth 0 -Total Square (Post) (cm) 0 -Area of Debridement (cm) - Length 0 -Area of Debridement (cm) - Width 0 -Total Square (Area) (cm) 0 -Wound/Ulcer Outcome Healed- Epithelialized #1 R Lat LE cluster -Time 09:51 09:21 09:39 -Correct Patient Yes Yes Yes -Correct Side, Site, Position Yes Yes Yes -Correct Procedure Yes Yes Yes -Procedure Performed Yes Yes Yes -Type of Procedure Debridement Debridement Debridement -Clinical Debridement Subcutaneous Subcutaneous Subcutaneous -Tissue Removed Subcutaneous Subcutaneous Subcutaneous -Post Debridement (cm) - Length 2.7 3.7 3.5 -Post Debridement (cm) - Width 1.8 1.7 1.5 -Post Debridement (cm) - Depth 0.1 0.1 0.1 -Total Square (Post) (cm) 4.86 6.29 5.25 -Area of Debridement (cm) - Length 2.7 3.7 3.5 -Area of Debridement (cm) - Width 1.8 1.7 1.5 -Total Square (Area) (cm) 4.86 6.29 5.25 -Tunneling No No No -Undermining/Tunneling No No No -Circular Undermining No No No -Wound/Ulcer Outcome Not Healed Not Healed Not Healed -Ulcer Cleansing Rinsed/ Rinsed/ Rinsed/ Irrigated with Irrigated with Irrigated with Saline Saline Saline -Foul Odor after Cleansing No No No -Bioengineered Tissue No No No -Bleeding Controlled with Pressure Pressure Pressure -Treatment Response Procedure Procedure Procedure Tolerated Well Tolerated Well Tolerated Well -Offloading No No No -Debridement - Subq, 1st 20sq cm Yes Yes Yes Pain Scale: 0-10 Numeric Is Patient Pain Free? Yes Yes Yes WC - Nurse 3 - General Ulcer D/C NN Start: 09/11/22 09:22 Freq: Status: Active Protocol: Activity Type Activity Date Activity User E-sign Co-sign Detail Recorded Client Recorded Date Recorded By Document 09/11/22 10:09 AK [id number] 09/11/22 10:09 AK Document 09/27/22 09:41 RB [id number] 09/27/22 09:42 RB Document 10/04/22 09:52 DL [id number] 10/04/22 09:53 DL 09/11/22 09/27/22 10/04/22 10:09 09:41 09:52 Wound Care Nurse 3 #1 R Lat LE cluster -Ulcer Cleansing Rinsed/ Rinsed/ Rinsed/ Irrigated with Irrigated with Irrigated with Saline Saline Saline -Foul Odor after Cleansing No No -Negative Pressure Wound Therapy N/A -Primary Dressing Applied Promogran NonAdherent C Hydrogel ($) Li Matter Contact Layer, Promogran Li Matter -Primary Dressing Covered/Secured with Dry Gauze, Dry Gauze & Dry Gauze & Secured with Roll Gauze, Roll Gauze, Tape Secured with Secured with Tape Tape -Promogran Li Matter 1 1 Right -Tubular Bandage Single Layer -Size of Tubigrip Used Size D -Size D ($) 1 -Stockings Yes Left -Tubular Bandage Single Layer -Size of Tubigrip Used Size D -Size D ($) 1 -Stockings Yes Treatment Response Procedure Procedure Tolerated Well Tolerated Well Vital Signs O2 L/MIN (L/min) 3 Pain Scale: 0-10 Numeric Is Patient Pain Free? Yes Yes Yes WC - Visit Discharge Discharge Condition Stable Stable Stable Ambulatory Status Ambulatory Ambulatory Ambulatory Transportation Private Auto Private Auto Medication Reconcilliation completed & Yes No provided to patient/care provider Clinical Summary of Care Provided Yes Yes Notes: hydrogel to RFA and mepilex Assessment/Plan Assessment/Plan (1) Ulcer of right lower extremity with fat layer exposed: CODE(S): L97.912 - Non-pressure chronic ulcer of unspecified part of right lower leg with fat layer exposed (2) Venous ulcer of right leg: CODE(S): I83.019 - Varicose veins of right lower extremity with ulcer of unspecified site; L97.919 - Non-pressure chronic ulcer of unspecified part of right lower leg with unspecified severity (3) Open wound of right forearm without complication: CODE(S): S51.801A - Unspecified open wound of right forearm, initial encounter (4) Smoking greater than 30 pack years: CODE(S): F17.210 - Nicotine dependence, cigarettes, uncomplicated (5) Essential hypertension: CODE(S): I10 - Essential (primary) hypertension PLAN: Plan Patient was evaluated at the wound center today. Wound care - Right lateral leg ulcer apply collagen hydrogel topped with adaptic covered with gauze after washing ulcer with soap and water 3 times per week when home health is able to assist with it. Right forearm now trauma on it, place collagen hydrogel and gauze. No debridement performed on right arm, superficial abrasion. Compression - Compression stockings that are 20-30 mmHg. If he is not able to get them on and off then he should use a single layer tubigrip. Vascular studies done at [facility] on 06/02/22. Arterial studies Right JOI - 0.78, Left JOI - 0.5. Mild right lower extremity arterial disease at rest. Moderated left lower extremity arterial disease. Venous studies showed no evidence of abnormalities bilaterally but study was technically limited due to heavy edema. Calf veins poorly visualized. Enlarged lymph node noted in the right inguinal canal, measuring approximately 3.81 x 2.8 2 x 1.36 cm. He had an appointment with Dr. Hidalgo, who states continue compression. Encouraged to eat a diet high in protein and increase vitamin C intake to help with wound healing. Also eat a diet with low sodium to help decrease edema and control blood pressure. Encouraged patient to stop smoking as it may have deleterious effects on wound healing. He does turn his oxygen off and smoke outside when he does smoke. Follow up one week.
== END 2022-10-07 23:59 | disposition home or self-care (01) ==
LOC: WC 09:00
PROVIDERS: Visit Provider Nurse Practitioner Family
DX: I83.018 Varicose veins of right lower extremity with ulcer other part of lower leg (principal); L97.912 Non-pressure chronic ulcer of unspecified part of right lower leg with fat layer exposed; S51.801A Unspecified open wound of right forearm, initial encounter; I87.2 Venous insufficiency (chronic) (peripheral); I10 Essential (primary) hypertension; F17.210 Nicotine dependence, cigarettes, uncomplicated; Z79.51 Long term (current) use of inhaled steroids; Z79.899 Other long term (current) drug therapy
CPT/HCPCS: 11042

== ENCOUNTER 2022-10-11 09:05 | Outpatient (RCR) | payer MEDICARE, MEDICAID, SELFPAY ==
[2022-10-08 00:27] VITALS: BP 146/76; PULSE 78; RESP 16; TEMP 35.9; BMI 38.1
[2022-10-11 09:05] VITALS: BP 150/82; PULSE 84; RESP 18; TEMP 36.1; BMI 38.1
--- NOTE | 2022-10-11 09:49 | PN.PCM_ITS ---
History of Present Illness Date of Service: 10/11/22 Chief Complaint: Right lateral leg ulcer History of Wound: 62 year old male presents with a non healing ulcer on his right lateral leg that he bumped it awhile ago. He has had a venous procedure by Dr. Hidalgo not too long ago. He wears oxygen and states that he is trying to quit smoking, he states he smokes a couple per day now, some days he doesn't smoke at all. He has a significant cardiac and respiratory history. He is a poor historian. Wound care - Santyl nickel thickness covered with gauze daily or every other day. Tubigrip for compression. Today he denies fever, chills, nausea or vomiting. He states he has a good appetite. Progress of Wound: Right leg ulcer cluster wound bed is healed today. Objective Data Objective Data Vital Signs: Vital Signs Temp Pulse Resp BP O2 Flow Rate 96.9 F L 84 18 150/82 H 3 10/11/22 09:05 10/11/22 09:05 10/11/22 09:05 10/11/22 09:05 10/08/22 00:27 Oxygen Flow Rate (L/min) 3 Weight: 243 lb 11.572 oz Body Mass Index (BMI) 38.1 Charges/Coding Visit Charges Office Visits / Consults: 62563 OV L3 Est Physical Exam Const alert and oriented x3 Orientation / Consciousness: awake HEENT normocephalic Head and Scalp: atraumatic Lymph Lymphatic: no lymphedema noted Resp normal respiratory effort and clear to auscultation bilaterally Effort and Inspection: able to speak in complete sentences Cardio regular rate and regular rhythm GI Palpation: soft Extremity normal capillary refill Extremity Narrative: +1 edema, he is wearing his compression stockings which is controlling his edema. Peripheral Pulses: Yes dorsalis pedis pulses present Skin Wound Narrative: Left lateral leg ulcer is healed Neuro oriented x3 Psych mental status grossly normal Debridement Note Debridement Note No debridement was completed: No debridement was completed today Post-Debridement Measurements and Additional Note: Post-Debridement Measurements/Treatment WC - Nurse 1 - General Ulcer Assessment Start: 10/11/22 09:05 Freq: Status: Active Protocol: MARYLU Activity Type Activity Date Activity User E-sign Co-sign Detail Recorded Client Recorded Date Recorded By Document 10/11/22 09:05 GORAN [id number] 10/11/22 09:10 RB 10/11/22 09:05 WC - Today's Visit Information Type of service Follow-up Visit (Physician/MOISTURE METER READER ) Arrival Mode Ambulatory Transfer Assistance None Patient Identification Verified (Name & Yes ) Patient Requires Transmission-Based No Precautions Height and Weight Body Mass Index (BMI) 38.1 BMI Classification Obese Vital Signs Temperature (97.8 F-99.1 F) 96.9 F L Temperature Source Temporal Pulse Rate (60-100) 84 Pulse Location Monitor Respiratory Rate (12-18) 18 Respiratory rate source Observation Blood Pressure (90/60-120/80) 150/82 H Blood Pressure Mean (mm Hg) 104 Source Monitor Position Semi-Fowlers Blood Pressure Location Right Arm History Since Last Visit- (Skip if this is Patient's initial visit) Have you changed medications since your No last visit? Any new allergies or adverse reactions No Had a fall/change in ADL's that may No increase risk of falls Signs or symptoms of abuse and/or No neglect since last visit Have you been in the hospital since your No last visit? Has dressing in place as prescribed Yes Has compression in place as prescribed Yes Has offloadiing in place as prescribed No Experienced any changes in pain level or No management Pain Scale: 0-10 Numeric Is Patient Pain Free? Yes - Nurse 1 - General Ulcer Measurement Start: 10/11/22 09:05 Freq: Status: Active Protocol: Activity Type Activity Date Activity User E-sign Co-sign Detail Recorded Client Recorded Date Recorded By Document 10/11/22 09:05 [id number] 10/11/22 09:10 RB 10/11/22 09:05 Wound Center Nurse 1 #1 R Lat LE cluster -Combined with other wound No -Current Size (cm) - Length 0 -Current Size (cm) - Width 0 -Current Size (cm) - Depth 0 -Total Square Cm 0 -Photo Taken Yes -Epithelialization Large 67-100% Lower Limb Edema Present Yes Right Calf (cm) 40.5 Right Ankle (cm) 24.5 Left Calf (cm) 41.5 Left Ankle (cm) 24.8 - Nurse 2 - General Ulcer CM Notes Start: 10/11/22 09:05 Freq: Status: Active Protocol: Activity Type Activity Date Activity User E-sign Co-sign Detail Recorded Client Recorded Date Recorded By Document 10/11/22 09:35 NUNU [id number] 10/11/22 09:36 NUNU 10/11/22 09:35 Wound Center Nurse 2 #1 R Lat DIYA cluster -Correct Patient No -Correct Side, Site, Position No -Correct Procedure No -Procedure Performed No -Post Debridement (cm) - Length 0 -Post Debridement (cm) - Width 0 -Post Debridement (cm) - Depth 0 -Total Square (Post) (cm) 0 -Area of Debridement (cm) - Length 0 -Area of Debridement (cm) - Width 0 -Total Square (Area) (cm) 0 -Wound/Ulcer Outcome Healed- Epithelialized Pain Scale: 0-10 Numeric Is Patient Pain Free? Yes Assessment/Plan Assessment/Plan (1) Ulcer of right lower extremity with fat layer exposed: CODE(S): L97.912 - Non-pressure chronic ulcer of unspecified part of right lower leg with fat layer exposed (2) Venous ulcer of right leg: CODE(S): I83.019 - Varicose veins of right lower extremity with ulcer of unspecified site; L97.919 - Non-pressure chronic ulcer of unspecified part of right lower leg with unspecified severity (3) Open wound of right forearm without complication: CODE(S): S51.801A - Unspecified open wound of right forearm, initial encounter (4) Smoking greater than 30 pack years: CODE(S): F17.210 - Nicotine dependence, cigarettes, uncomplicated (5) Essential hypertension: CODE(S): I10 - Essential (primary) hypertension PLAN: Plan Patient was evaluated at the wound center today. His right lateral leg ulcer cluster is healed today. Encouraged him to massage lotion into his ulcer daily. Right forearm wound is almost healed, continue to place collagen hydrogel and gauze for another week. Compression - Compression stockings that are 20-30 mmHg. Vascular studies done at [facility] on 06/02/22. Arterial studies Right JOI - 0.78, Left JOI - 0.5. Mild right lower extremity arterial disease at rest. Moderated left lower extremity arterial disease. Venous studies showed no evidence of abnormalities bilaterally but study was technically limited due to heavy edema. Calf veins poorly visualized. Enlarged lymph node noted in the right inguinal canal, measuring approximately 3.81 x 2.82 x 1.36 cm. Encouraged patient to stop smoking as it may have deleterious effects on wound healing. He does turn his oxygen off and smoke outside when he does smoke. Follow up as needed.
== END 2022-10-11 15:36 | disposition home or self-care (01) ==
LOC: WC 09:05
PROVIDERS: Visit Provider Nurse Practitioner Family
DX: I83.018 Varicose veins of right lower extremity with ulcer other part of lower leg (principal); L97.912 Non-pressure chronic ulcer of unspecified part of right lower leg with fat layer exposed; I87.2 Venous insufficiency (chronic) (peripheral); S51.801A Unspecified open wound of right forearm, initial encounter; F17.210 Nicotine dependence, cigarettes, uncomplicated; I10 Essential (primary) hypertension; Z79.51 Long term (current) use of inhaled steroids; Z79.899 Other long term (current) drug therapy
CPT/HCPCS: 99213; G0463

== ENCOUNTER → 2023-05-03 | Outpatient (CLI) | payer MEDICAID, SELFPAY ==
--- NOTE | 2023-05-03 07:52 | CT_ITS ---
STUDY: LOW DOSE CT LUNG CANCER SCREENING REASON FOR EXAM: Male, 62 years old. Smoker. Patient smokes between 1 and 2 packs per day for 40 years. RADIATION DOSAGE (If Supplied By Facility): CTDIvol = ( 4.02 ) mGy, DLP = ( 118.33 ) mGycm TECHNIQUE: No contrast was administered. Low dose technique was utilized (average mAS-38 and kVp 120). 1.25 mm axial source images with a slice interval of 1.25-mm were reconstructed in lung windows. 2.5 mm axial source images with a slice interval of 2.5-mm were reconstructed in lung windows. 5.0 mm axial source images with a slice interval of 5.0-mm were reconstructed in soft tissue windows. COMPARISON: Comparison is made with prior study July 23, 2020. NODULES: Persistent pleural-based mass in the posterior medial segment of the right lower lobe. This has increased slightly in size as compared to prior study. This has the appearance of the round atelectasis. Small left pleural effusion. Emphysema: Mild scarring in the anterior medial aspect of the right middle lobe. Endobronchial lesion: Unremarkable Aorta: Unremarkable CORONARY ARTERIES: Coronary artery calcification is seen. Heart: Unremarkable Pulmonary artery: Unremarkable Mediastinal nodes: Remarkable Other chest and abdominal findings: CT/Low Dose CT Lung Screening IMPRESSION: Lung-RADS category 3 - Continue screening with LDCT in 6 months. IMPORTANT NOTES FOR USE: ACR Lung-RADS Version 1.1 Assessment Categories Release Date: 2018 Category: Coded 0-4 bases on nodule(s) with highest degree of suspicion. Negative screen is defined as categories 1 and 2; a positive screen is defined as categories 3 and 4. Category 3 and 4A nodules that are unchanged on interval CT should be coded as category 2, and individuals returned to screening in 12 months. Category 4X: Category 3 or 4 nodules with additional imaging findings that increase the suspicion of lung cancer, such as spiculation, GGN that doubles in size in 1 year, enlarged lymph notes, etc. Category Modifiers: S (significant finding unrelated to lung cancer) Electronically Signed: Lc Boucher MD at 11:27 EDT ,
== END | disposition home or self-care (01) ==
LOC: CT 07:51
PROVIDERS: Referring Provider Nurse Practitioner Acute Care; Visit Provider Nurse Practitioner Acute Care
DX: F17.210 Nicotine dependence, cigarettes, uncomplicated (principal)
CPT/HCPCS: 71271

== ENCOUNTER → 2023-05-04 | Outpatient (CLI) | payer MEDICAID, SELFPAY ==
--- NOTE | 2023-05-05 07:38 | PFT ---
INTRODUCTION: The patient is a 62-year-old male who presents for pulmonary function studies secondary to a diagnosis of COPD. Respiratory therapy reported that the patient was unable to perform proper DLCO technique. INTERPRETATION: Forced expiration spirometry demonstrates the presence of a very severe large airways obstructive ventilatory defect. There was no significant response to aerosolized bronchodilators. Spirograms are of fair quality but do not plateau indicating slow emptying of the lungs. Body plethysmography was performed and revealed a decreased TLC to 2.8 L, 43% of predicted, indicative of a severe restrictive ventilatory impairment. The remainder of the lung volumes are symmetrically reduced. Diffusing capacity was unable to be obtained. IMPRESSION: Irreversible very severe mixed ventilatory defect. Diffusing capacity was unable to be obtained.
== END | disposition home or self-care (01) ==
LOC: PSN 10:44
PROVIDERS: Referring Provider Nurse Practitioner Acute Care; Visit Provider Nurse Practitioner Acute Care
DX: J44.9 Chronic obstructive pulmonary disease, unspecified (principal)
CPT/HCPCS: 94060; 94726

== ENCOUNTER → 2023-05-08 | Outpatient (CLI) | payer MEDICAID, MEDICARE, SELFPAY ==
[2023-05-08 11:44] VITALS: PULSE 100; PULSE 101; PULSE 104; PULSE 79; PULSE 82; PULSE 95; PULSE 97; O2SAT 86; O2SAT 90; O2SAT 91; O2SAT 92; O2SAT 93
--- NOTE | 2023-05-08 11:47 | CPS ---
PATIENT HAS OXYGEN AT HOME THROUGH [facility]. HE WAS ON RA PRIOR TO BEGINNING TEST. HE REQUIRED 2LPM FOR SPO2 86%, AND REMAINED ON 2LPM FOR DURATION OF TESTING. HE IS REQUESTING A PRESCRIPTION FOR POC TO INCREASE HIS MOBILITY. HE STRUGGLES WITH LIFTING E-CYLINDERS WHEN HE IS AMBULATORY.
--- NOTE | 2023-05-08 13:03 | PCM.PSN.6M ---
PSN 6 Minute Walk Test 6 Minute Walk Test 6 Minute Walk Test: 6 Minute Walk Test PSN:6-Minute Walk Test Start: 05/08/23 11:44 Freq: Status: Active Protocol: [id number].6MINW Document 05/08/23 11:44 [facility] (Rec: 05/08/23 11:50 [facility] [id number]) 6 Minute Walk Test Date Performed 05/08/23 Time Performed 11:15 Height 5 ft 8 in Weight: 106.594 kg Weight in Pounds 235.[address]: Laly Samaniego [employer] Assistive device used: None Pre-test Oxygen Delivery Method Room Air Pulse Ox 92 Pulse Rate (60-100) 79 Dyspnea Avtar Scale (0-10) 0 1st minute Oxygen Delivery Method Room Air Pulse Ox 91 Pulse Rate (60-100) 95 Dyspnea Avtar Scale (0-10) 1 Number of Rests Taken 0 2nd minute Oxygen Delivery Method Room Air Pulse Ox 86 Pulse Rate (60-100) 97 Dyspnea Avtar Scale (0-10) 1 Number of Rests Taken 1 3rd minute Oxygen Flow Rate (L/min) 2 Oxygen Delivery Method Nasal Cannula Pulse Ox 93 Pulse Rate (60-100) 100 Dyspnea Avtar Scale (0-10) 1 Number of Rests Taken 0 4th minute Oxygen Flow Rate (L/min) 2 Oxygen Delivery Method Nasal Cannula Pulse Ox 93 Pulse Rate (60-100) 104 H Dyspnea Avtar Scale (0-10) 1 Number of Rests Taken 0 5th minute Oxygen Flow Rate (L/min) 2 Oxygen Delivery Method Nasal Cannula Pulse Ox 92 Pulse Rate (60-100) 101 H Dyspnea Avtar Scale (0-10) 1 Number of Rests Taken 1 6th minute Oxygen Flow Rate (L/min) 2 Oxygen Delivery Method Nasal Cannula Pulse Ox 90 Pulse Rate (60-100) 100 Dyspnea Avtar Scale (0-10) 1 Number of Rests Taken 0 Post-test Oxygen Flow Rate (L/min) 2 Oxygen Delivery Method Nasal Cannula Pulse Ox 93 Pulse Rate (60-100) 82 Dyspnea Avtar Scale (0-10) 1 Full Laps Walked 8 Partial Lap, Number of Tiles Walked 17 Total Distance Walked (ft) 489 05/08/23 11:47 Cardiopulmonary Services by Aracely Hanson PATIENT HAS OXYGEN AT HOME THROUGH [facility]. HE WAS ON RA PRIOR TO BEGINNING TEST. HE REQUIRED 2LPM FOR SPO2 86%, AND REMAINED ON 2LPM FOR DURATION OF TESTING. HE IS REQUESTING A PRESCRIPTION FOR POC TO INCREASE HIS MOBILITY. HE STRUGGLES WITH LIFTING E-CYLINDERS WHEN HE IS AMBULATORY. Initialized on 05/08/23 11:47 - END OF NOTE Interpretation Interpretation: The patient was noted to be 92% on room air at rest. The patient then started ambulating, but desaturated to 86% in the second minute. Patient was able to complete 6 minutes of ambulation once on 2 L/min. In total, the patient traveled 489 feet over the course of 6 minutes with no assistive devices and 2 breaks. These findings are consistent with a respiratory limitation exercise tolerance. Recommendations Recommendations: The patient requires no supplemental oxygen at rest, but should be using 2 L/min with any ambulation.
== END | disposition home or self-care (01) ==
LOC: PSN 11:11
PROVIDERS: Referring Provider Nurse Practitioner Acute Care; Visit Provider Nurse Practitioner Acute Care
DX: J44.9 Chronic obstructive pulmonary disease, unspecified (principal)
CPT/HCPCS: 93225; 93226; 94618

== ENCOUNTER → 2024-09-02 | Outpatient (CLI) | payer MEDICARE, MEDICAID, SELFPAY ==
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
[2024-09-02 08:19] VITALS: BP 119/65; PULSE 70; O2SAT 96
--- NOTE | 2024-09-02 08:27 | PR.ITP_ITS ---
General Information2 General Information Admitting Diagnosis: COPD unspecified Gold Classification:: GOLD 4: Very Severe PFT FEV1:: 31 FVC:: 44 FEV1/FVC%:: 70 Personal Learning Style/Barriers Personal Learning Style:: Audio/Visual Barriers to Learning: None Stage of change r/t lifestyle modifications: Contemplation Education/Goals OR Patient Goals: Increase muscle strength: Initial Assessment and Experience less dyspnea: Initial Assessment Exercise - Initial Assessment Visit Date of Eval: 09/02/24 (initial eval ) Problem/Goals Problems: Deconditioning, No regular exercise, Knowledge deficit exercise guidelines and Knowledge deficit exercise safety Goals:: Aerobic exercise 30-60 mins x 12 weeks [36 sessions] Functional Capacity Test Number of feet walked: 489 Lowest SPO2 %: 86 O2 L/M: 2 Physician Prescribed Exercise Modalities: Treadmill, Rower, Schwinn Airdyne AD-7, SciFit Stepper, Sarenza Pro- II Ergometer and SciFit Lateral Pharmacist Apprentice Intensity: 60-80% of age predicted maximum heart rate reserve Current METSs:: 2 Target HR:: 118 (94-118) Resting Blood Pressure: 119/65 EKG Type: SR Plan Plan and Plan to Review:: Benefits of exercise, Core components of exercise, How to measure dyspnea level, How to monitor dyspnea level, Exercise intensity, Exercise safety guideline, Home exercise guidelines and [place]: 3-01/16- Nutrition/Wt Mgmt - Initial Visit Date of Eval: 09/02/24 (initial eval ) Problems/Goals Problems: Overweight Goals: Wt Loss 1-2 lbs per week Weight Management Knowledge Deficit Management of:: Overweight Admit Height:: 5 ft 8 in Admit Weight:: 238 lb Admit BMI:: 36.1 Intervention Referral to dietitian:: No Will attend diet classes:: Yes Intervention/Plan: Instruct on ideal BMI & set weight loss goal w/patient, Assist pt to ID & incorporate diet changes for weight loss by S9, Refer to Structured Weight Loss program as appropriate, Encourage goal of using 250- 300dcal per session for weight loss and Other additional plan/interventions Plan Nutrition Plan: Yes: Review BMI or WC & identify target wt & strategies for wt control, Yes: Nutrition education class:, Yes: Medication education class [Prednisone]:, Yes: Weight control education class:, Yes: Education re: Need for ongoing weight monitoring, Yes: Food diary: and Yes: Physical activity log: Nutrition/Wt Mgmt - 30-Day Weight Management Height: 5 ft 8 in Weight:: 238 lb BMI: 36.1 Nutrition/Wt Mgmt - 60-Day Weight Management Height: 5 ft 8 in Weight:: 238 lb BMI: 36.1 Nutrition/Wt Mgmt - 90-Day Weight Management Height: 5 ft 8 in Weight:: 238 lb BMI: 36.1 Nutrition/Wt Mgmt - Final Weight Management Height: 5 ft 8 in Weight:: 238 lb BMI: 36.1 Psychosocial - Initial Assess Visit Date of Eval: 09/02/24 (initial eval ) Problems/Goals History of Emotional Disorders: None Psychosocial Goals: 1. Patient is free from overwhelming symtoms of depression (or anxiety, 2. Identifies personal stressors & states the strategies for managing and 3. Identifies activities to decrease isolation and/or symptoms of Referral to Behavioral Health PS - Interventions: Yes: Attend Stress Management Classes Intervention/Plan: See List Interventions/Plan:: Assess stressors,coping strategies & signs of derpression on admission, Instruct/assist pt to develop coping & personal stress Mgt strategies, Refer to Behavioral Health if appropriate, Refer to Physician if appropriate, Instruct patient to recognize signs & symptoms of depression and Instruct patient to recog Psychosocial - 30-Day Problems/Goals History of Emotional Disorders: None Psychosocial Goals: 1. Patient is free from overwhelming symtoms of depression (or anxiety, 2. Identifies personal stressors & states the strategies for managing and 3. Identifies activities to decrease isolation and/or symptoms of Referral to Behavioral Health PS - Interventions: Yes: Attend Stress Management Classes Plan Interventions/Plan:: Assess stressors,coping strategies & signs of derpression on admission, Instruct/assist pt to develop coping & personal stress Mgt strategies, Refer to Behavioral Health if appropriate, Refer to Physician if appropriate, Instruct patient to recognize signs & symptoms of depression and Instruct patient to recog Psychosocial - 60-Day Problems/Goals History of Emotional Disorders: None Psychosocial Goals: 1. Patient is free from overwhelming symtoms of depression (or anxiety, 2. Identifies personal stressors & states the strategies for managing and 3. Identifies activities to decrease isolation and/or symptoms of Referral to Behavioral Health PS - Interventions: Yes: Attend Stress Management Classes Plan Interventions/Plan:: Assess stressors,coping strategies & signs of derpression on admission, Instruct/assist pt to develop coping & personal stress Mgt strategies, Refer to Behavioral Health if appropriate, Refer to Physician if appropriate, Instruct patient to recognize signs & symptoms of depression and Instruct patient to recog Psychosocial - 90-Day Problems/Goals History of Emotional Disorders: None Psychosocial Goals: 1. Patient is free from overwhelming symtoms of depression (or anxiety, 2. Identifies personal stressors & states the strategies for managing and 3. Identifies activities to decrease isolation and/or symptoms of Referral to Behavioral Health PS - Interventions: Yes: Attend Stress Management Classes Plan Interventions/Plan:: Assess stressors,coping strategies & signs of derpression on admission, Instruct/assist pt to develop coping & personal stress Mgt strategies, Refer to Behavioral Health if appropriate, Refer to Physician if appropriate, Instruct patient to recognize signs & symptoms of depression and Instruct patient to recog Psychosocial - Final Assess Problems/Goals History of Emotional Disorders: None Psychosocial Goals: 1. Patient is free from overwhelming symtoms of depression (or anxiety, 2. Identifies personal stressors & states the strategies for managing and 3. Identifies activities to decrease isolation and/or symptoms of Referral to Behavioral Health PS - Interventions: Yes: Attend Stress Management Classes Plan Interventions/Plan:: Assess stressors,coping strategies & signs of derpression on admission, Instruct/assist pt to develop coping & personal stress Mgt strategies, Refer to Behavioral Health if appropriate, Refer to Physician if appropriate, Instruct patient to recognize signs & symptoms of depression and Instruct patient to recog Oxygen & Oxygen Titration Init Visit Date of Eval: 09/02/24 (initial eval ) Initial Assessment Oxygen on Admission: Continuous home use Goal Oxygen & Oxygen Tritration Goals: Effective hypoxemia control and Uses O2 as Rx'd/safely Plans Plan: Monitor SpO2 rest & with exercise, Recommend appropriate FiO2 to Pt/MD, Assist to contact DME for O2, Train appropriate O2 use at rest, Train appropriate O2 use with exercise and Train O2 safety & systems Reviewed prescribed medications:: Purpose, Schedule, Side effects and Importance of compliance Instruct correct technique/timing & care:: MDI, DPI, Nebulizer and Return demo use of inhaler Bronchial Hygiene Plan: Controlled cough, CPT, Vibratory PEP device, VEST, Role of exercise in secretion clearance, NS Nasal spray, Hydration, Hand hygiene, Evaluate sputum, When to call MD, Signs/symptoms to report:, Influenza/Pneumovax vaccines and Cleaning of respiratory equipment Core Components - Initial Visit Date of Eval: 09/02/24 (initial eval ) Exacerbation Mgmt & Airway Clearance Plan: Monitor SpO2 rest & with exercise, Recommend appropriate FiO2 to Pt/MD, Assist to contact DME for O2, Train appropriate O2 use at rest, Train appropriate O2 use with exercise and Train O2 safety & systems Instruct correct technique/timing & care:: MDI, DPI, Nebulizer and Return demo use of inhaler Bronchial Hygiene Plan: Controlled cough, CPT, Vibratory PEP device, VEST, Role of exercise in secretion clearance, NS Nasal spray, Hydration, Hand hygiene, Evaluate sputum, When to call MD, Signs/symptoms to report:, Influenza/Pneumovax vaccines and Cleaning of respiratory equipment Medication Reviewed prescribed medications:: Purpose, Schedule, Side effects and Importance of compliance Diabetes Referral to dietitian:: No Will attend diet classes:: Yes Patient Health Questionnaire PHQ-9 Screening Initial Assessment: 1. Little interest or pleasure in doing things: Not at all 2. Feeling down, depressed, or hopeless: Not at all 3. Trouble falling or staying asleep, or sleeping too much: Several days 4. Feeling tired or having little energy: Nearly every day 5. Poor appetite or overeating: Not at all 6. Feeling bad about yourself -- or that you are a failure or have let yourself or your family down: Not at all 7. Trouble concentrating on things, such as reading the newspaper or watching television: Not at all 8. Moving or speaking so slowly that other people could have noticed. Or the opposite - being so fidgety or restless that you have been moving around a lot more than usual: Not at all 9. Thoughts that you would be better off , or of hurting yourself in some way: Not at all How difficult have these problems made it for you to do your work, take care of things at home, or get along with other people?: Somewhat difficult Total Score: 4 Knowledge Questionaire (BCKQ) Information Information: [place] COPD Knowledge Questionnaire (BCKQ) This questionnaire is designed to find out what you know about your lung problem. It should be completed without help form anyone else. This usually takes between 10 and 20 minutes. Your answers will help us to find out what information you need to help you to understand and manage your lung condition. Jerrell the kaw which you think is the correct answer. Questions 1. In COPD: b. COPD can only be confirmed by breathing tests: Don't know c. In COPD ther is usually gradual worsening over time: Don't know d. In COPD oxygen levels in the blood are always low: Don't know e. COPD is usually in people less than 40 years old: False 2. COPD: Fly than 80% of COPD cases are caused by cigarette smoking: True b. COPD can be caused by occupational dust exposure: Don't know c. Longstanding asthma can develop into COPD: Don't know d. COPD is commonly an inherited disease: False e. Women are less vunerable to the effects of cigarette than men: False 3. The following symptoms are Common in COPD: a. Swelling of the ankles is common in COPD:: False b. Fatigue [tiredness] is common in COPD: False c. Wheezing is common in COPD: True d. Crushing chest pain is common in COPD: False e. Rapid weight loss is common in COPD: False 4. Breathlessness in COPD: a. Severe breathlessness prevents travel by air: Don't know b. Breathlessness can be worsened by eating large meals: False c. Breathlessness means that your oxygen levels are low: True d. Breathlessness is a normal response to exercise: True e. Breathlessness is primarily caused by a narrowing of the bronchial tubes: True 5. Phlegm (sputum): a. Coughing phlegm is a common symptom in COPD: False b. Clearing phlegm is more difficult if you get dehydrated: Don't know c. Bronchodilator inhalers can help clear phlegm: True d. Phlegm causes harm if swallowed: False e. Clearing phlegm can be assisted by breathing exercises: False 6. Chest infections / exacerbations: a. Chest infections often cause coughing of blood: False b. Chest infection phlegm usually becomes coloured (ylw/grn): Don't know cExerbations (episodes of worsening) can occur in the absence of chest infection: Don't know d. Chest infections are always accompanied by a high temperature: False e. Steroid tablets should be taken whenever there is an exacerbation: Don't know 7. Excercise in COPD: aWalking excercises better than breathing to improve fitness: False b. Exercise should be avoided as it strains the lungs: False c. Exercise can help maintain your bone density: True d. Exercise helps relieve depression: True e. Exercise should be stopped if it makes you breathless: True 8. Smoking: a. Stopping smoking will reduce the risk of heart disease: True b. Stopping smoking will slow down further lung damage: True c. Stopping smoking is pointless as the damage is done: False d.Stopping smoking usually results in improved lung function: True eNicotine replacement therapy only available on prescription: Don't know 9. Vaccination: a. A flu jab is recommended every year: True b. You can get flu from having a flu jab: True c. You can only have a flu jab if you are 65 or over: False d. A pneumonia jab protects against all forms of pneumonia: True e.You can have a pneumonia jab and a flu job on the same day: Don't know 10. Inhaled bronchodilators: a. Bronchodilators act quickly (within 10 minutes): True b. Both short & long acting bronchodilators can be taken on the same day: Don't know c. Spacers (volumatic,nebuhaler,serochamber)should be dried w/atowel after washing: Don't know d. A spacer device increases the medication to the lungs: Don't know e. Tremor may be a side effect of bronchodilators: Don't know 11. Antibiotic treatment in COPD: a. To be effective, the course should last at least 10 days: True b. Excessive use of antibiotics can cause resistant bacteria (germs): Don't know c. Antibiotics will clear all chest infections: Don't know d. Antibiotic treatment is necessary for an exacerbation (worsening) however mild: Don't know e. Seek advice if antibiotics cause severe diarrhoea: Don't know 12. Steroid tablets given for COPD (eg Prednisolone): a. Steroid tablets help strengthen muscles: False b. Steroid tablets should be avoided if there is a chest infection: False c. The risk of long-term side effects due to steroids is less w/short courses then w/continous treatment: Don't know dIndigestion is common side effect from using steroid tablet: Don't know e. Steroid tablets can increase your appetite: True 13. Inhaled steroids (brown, red or orange): a. Inhaled steroids should be stopped if you are given steroid tablets: True bSteroid inhalers can be used for rapid relief breathlessnes: Don't know c. Spacer devices reduce the risk of getting thrush in the mouth: False d.Steroid inhaler should be taken before your bronchodilator: Don't know e. Inhaled steroids improve lung function in COPD: Don't know Nutrition Survey Nutrition Survey Instructions Scoring Instructions
[2024-09-02 08:42] VITALS: BP 119/65
[2024-09-02 09:01] VITALS: BMI 36.1
[2024-09-02 09:34] VITALS: BMI 36.1
== END | disposition home or self-care (01) ==
DX: J44.9 Chronic obstructive pulmonary disease, unspecified (principal)

== ENCOUNTER 2024-10-06 13:00 | Outpatient (RCR) | payer MEDICARE, MEDICAID, SELFPAY ==
[2024-09-02 09:34] VITALS: BMI 36.1
--- NOTE | 2024-10-02 07:53 | PCM.CR.ITP ---
Psychosocial - Initial Assess Target Goals Target Goals Nutrition Survey Nutrition Survey Instructions Scoring Instructions Psychosocial - 30-Day Assess Target Goals Target Goals Psychosocial - 60-Day Assess Target Goals Target Goals Psychosocial - 90-Day Assess Target Goals Target Goals Psychosocial - Final Assessmen Target Goals Target Goals
--- NOTE | 2024-10-02 07:58 | PR.ITP_ITS ---
Exercise - Initial Assessment Visit Session Number:: 8 Physician Prescribed Exercise Modalities: SciFit Stepper and SciFit Pro-II Ergometer Current METSs:: 2.8 Target HR:: 118 (94-118) Current RPD:: 2-3 Maximum Exercise HR:: 105 Resting Blood Pressure: 126/54 Maximum Exercise Blood Pressure: 144/64 Minimum SpO2 with exercise: 93 (Pt is on 3L with exercise) EKG Type: NSR to ST Nutrition/Wt Mgmt - Initial Visit Session Number:: 10 Weight Management Admit Height:: 5 ft 8 in Admit Weight:: 235 lb Admit BMI:: 35.7 Nutrition/Wt Mgmt - 30-Day Visit Date of Eval: 10/02/24 Session Number:: 10 Weight Management Height: 5 ft 8 in Weight:: 235 lb BMI: 35.7 Weight Goals Progress:: Progressing (Pt has lost 3 lbs. Pt is scheduled to attend nutrition class.) Nutrition/Wt Mgmt - 60-Day Visit Session Number:: 10 Weight Management Height: 5 ft 8 in Weight:: 235 lb BMI: 35.7 Nutrition/Wt Mgmt - 90-Day Visit Session Number:: 10 Weight Management Height: 5 ft 8 in Weight:: 235 lb BMI: 35.7 Nutrition/Wt Mgmt - Final Visit Session Number:: 10 Weight Management Height: 5 ft 8 in Weight:: 235 lb BMI: 35.7 Psychosocial - Initial Assess Visit Session Number:: 10 Problems/Goals History of Emotional Disorders: None Psychosocial Goals: 1. Patient is free from overwhelming symtoms of depression (or anxiety, 2. Identifies personal stressors & states the strategies for managing, 3. Identifies activities to decrease isolation and/or symptoms of, 4. Improved psychosocial coping skills., 5. Verbalizes coping strategies., 6. Adequate treatment of depression. and 7. Improved Q.O.L. Psychosocial Test Tool Used:: Pulmonary QOL and PHQ-9 Questionnaire Referral to Behavioral Health PS - Interventions: Yes: Attend Stress Management Classes Intervention/Plan: See List Interventions/Plan:: Assess stressors,coping strategies & signs of derpression on admission, Instruct/assist pt to develop coping & personal stress Mgt strategies, Refer to Behavioral Health if appropriate, Refer to Physician if appropriate, Instruct patient to recognize signs & symptoms of depression, Instruct patient to recog and Other additional plan/intervention Comments:: Pt denies any psychosocial issues at this time Psychosocial - 30-Day Visit Date of Eval: 10/02/24 Session Number:: 10 Problems/Goals History of Emotional Disorders: None Psychosocial Goals: 1. Patient is free from overwhelming symtoms of depression (or anxiety, 2. Identifies personal stressors & states the strategies for managing, 3. Identifies activities to decrease isolation and/or symptoms of, 4. Improved psychosocial coping skills., 5. Verbalizes coping strategies., 6. Adequate treatment of depression. and 7. Improved Q.O.L. Psychosocial Test Tool Used:: Pulmonary QOL and PHQ-9 Questionnaire Referral to Behavioral Health PS - Interventions: Yes: Attend Stress Management Classes Plan Interventions/Plan:: Assess stressors,coping strategies & signs of derpression on admission, Instruct/assist pt to develop coping & personal stress Mgt strategies, Refer to Behavioral Health if appropriate, Refer to Physician if appropriate, Instruct patient to recognize signs & symptoms of depression, In struct patient to recog and Other additional plan/intervention Comments:: Pt denies any psychosocial issues at this time Psychosocial - 60-Day Visit Session Number:: 10 Problems/Goals History of Emotional Disorders: None Psychosocial Goals: 1. Patient is free from overwhelming symtoms of depression (or anxiety, 2. Identifies personal stressors & states the strategies for managing, 3. Identifies activities to decrease isolation and/or symptoms of, 4. Improved psychosocial coping skills., 5. Verbalizes coping strategies., 6. Adequate treatment of depression. and 7. Improved Q.O.L. Psychosocial Test Tool Used:: Pulmonary QOL and PHQ-9 Questionnaire Referral to Behavioral Health PS - Interventions: Yes: Attend Stress Management Classes Plan Interventions/Plan:: Assess stressors,coping strategies & signs of derpression on admission, Instruct/assist pt to develop coping & personal stress Mgt strategies, Refer to Behavioral Health if appropriate, Refer to Physician if appropriate, Instruct patient to recognize signs & symptoms of depression, Instruct patient to recog and Other additional plan/intervention Comments:: Pt denies any psychosocial issues at this time Psychosocial - 90-Day Visit Session Number:: 8 Problems/Goals History of Emotional Disorders: None Psychosocial Goals: 1. Patient is free from overwhelming symtoms of depression (or anxiety, 2. Identifies personal stressors & states the strategies for managing, 3. Identifies activities to decrease isolation and/or symptoms of, 4. Improved psychosocial coping skills., 5. Verbalizes coping strategies., 6. Adequate treatment of depression. and 7. Improved Q.O.L. Psychosocial Test Tool Used:: Pulmonary QOL and PHQ-9 Questionnaire Referral to Behavioral Health PS - Interventions: Yes: Attend Stress Management Classes Plan Interventions/Plan:: Assess stressors,coping strategies & signs of derpression on admission, Instruct/assist pt to develop coping & personal stress Mgt strateg ies, Refer to Behavioral Health if appropriate, Refer to Physician if appropriate, Instruct patient to recognize signs & symptoms of depression, Instruct patient to recog and Other additional plan/intervention Comments:: Pt denies any psychosocial issues at this time Psychosocial - Final Assess Visit Session Number:: 8 Problems/Goals History of Emotional Disorders: None Psychosocial Goals: 1. Patient is free from overwhelming symtoms of depression (or anxiety, 2. Identifies personal stressors & states the strategies for managing, 3. Identifies activities to decrease isolation and/or symptoms of, 4. Improved psychosocial coping skills., 5. Verbalizes coping strategies., 6. Adequate treatment of depression. and 7. Improved Q.O.L. Psychosocial Test Tool Used:: Pulmonary QOL and PHQ-9 Questionnaire Referral to Behavioral Health PS - Interventions: Yes: Attend Stress Management Classes Plan Interventions/Plan:: Assess stressors,coping strategies & signs of derpression on admission, Instruct/assist pt to develop coping & personal stress Mgt strategies, Refer to Behavioral Health if appropriate, Refer to Physician if appropriate, Instruct patient to recognize signs & symptoms of depression, Instruct patient to recog and Other additional plan/intervention Comments:: Pt denies any psychosocial issues at this time Oxygen & Oxygen Titration Init Visit Session Number:: 10 Initial Assessment SpO2:: 93 (Pt is on 3L with exercise) Oxygen & Oxygen Titration 30D Visit Date of Eval: 10/02/24 Session Number:: 8 Reassessment Reassessment- 30 Days: Demonstrate knowledge of O2 Rx at rest & w/exercise, Using O2 as Rx'd, Has home O2 as Rx'd and Uses port O2 as Rx'd Breath Sounds:: Expiratory Wheezes SpO2:: 93 (Pt is on 3L with exercise) Oxygen & Oxygen Titration 60D Visit Date of Eval: 10/02/24 Session Number:: 8 Reassessment Breath Sounds:: Expiratory Wheezes SpO2:: 93 (Pt is on 3L with exercise) Oxygen & Oxygen Titration 90D Visit Date of Eval: 10/02/24 Session Number:: 8 Reassessment Breath Sounds:: Expiratory Wheezes SpO2:: 93 (Pt is on 3L with exercise) Oxygen & Oxygen Titration ADAM Visit Date of Eval: 10/02/24 Session Number:: 8 Reassessment Breath Sounds:: Expiratory Wheezes SpO2:: 93 (Pt is on 3L with exercise) [employer] - Initial Visit Session Number:: 8 Hypertension Hypertension Diagnosis:: Hypertension ICD-10 I10 BP: 126/54 [place] [employer] Hypertension Guidelines Blood Pressure: 144/64 Outcomes/Goals: Able to verbalize/achieve optimal blood pressure <130/80 and Incorporates diet changes & exercise for blood pressure control by DC Tobacco - Initial Assessment Tobacco Program Goals Stages of Change:: Maintenance Tobacco Use: Non-smoker (Pt states he is no longer a smoker) Gave Education Materials For:: Tobacco Triggers, Pulmonary Disease, Risk Factors, Breathing Techniques, Medical Compliance, Pulmonary A&P, Exacerbation Signs & Symptoms and Stress & Relaxation Diabetes Diabetes:: No [employer] - 30 DAYS Visit Date of Eval: 10/02/24 Session Number:: 8 Hypertension Hypertension Diagnosis:: Hypertension ICD-10 I10 Resting Blood Pressure:: 126/54 [place] [employer] Hypertension Guidelines Peak Exercise Blood Pressure:: 144/64 Outcomes/Goals: Able to verbalize/achieve optimal blood pressure <130/80 and Incorporates diet changes & exercise for blood pressure control by DC Interventions/plan: Instruct on optimal blood pressure, hypertension & medications and Instruct on effects of sodium, alcohol, stress, exercise &hypertension 30 day Reassessments:: Progressing Reassessment Notes & Comments:: Pt's BP's are still slightly elevated. Encourage a low sodium diet. Will send report to pt's physician if necessary. Tobacco - 30-Day Tobacco Program Goals Stages of Change:: Maintenance Learning Barriers: Participates in education Tobacco Use: Non-smoker (Pt states he is no longer a smoker) Gave Education Materials For:: Tobacco Triggers, Pulmonary Disease, Risk Factors, Breathing Techniques, Medical Compliance, Pulmonary A&P, Exacerbation Signs & Symptoms and Stress & Relaxation Exacerbation Mgmt & Airway Clearance Reassessment: Demonstrates knowledge of O2 Rx at rest, Demonstrates knowledge of O2 Rx with exercise, Using O2 as prescribed, Has home O2 as prescribed and Uses port O2 as prescribed Bronchial Hygiene Plan: Yes: Pt demonstrates correctly for effective cough, Yes: Pt demo correct for CPT, Yes: Pt demo correct for device, Yes: Pt demo correct for NS nasal spray, Yes: Pt demo correct for sputum management, Yes: Pt demo correct for improved hydration, Yes: Pt demo correct for hand hygiene, Yes: Pt demo correct for evalute sputum, Yes: Pt demo correct for verbalize when to call MD and Yes: Pt demo correct for cleaning of respiratory equipment Medication Medication list reviewed:: Yes Taking medications 100% of the time:: Met Medication reassessment: Yes: Pt demonstrates correct technique timing for MDI, Yes: Pt demonstrates correct technique timing for DPI, Yes: Pt demonstrates correct technique timing for NEB and Yes: Pt demonstrates correct technique timing for spacer Diabetes Diabetes:: No 30-day Reassessments:: Progressing Reassessment Notes & Comments:: Pt is scheduled to attend nutrition class. Pt encouraged to eat a low sodium heart healthy diet. [employer] - 60 DAYS Visit Session Number:: 8 Hypertension Hypertension Diagnosis:: Hypertension ICD-10 I10 Resting Blood Pressure:: 126/54 [place] [employer] Hypertension Guidelines Peak Exercise Blood Pressure:: 144/64 Outcomes/Goals: Able to verbalize/achieve optimal blood pressure <130/80 and Incorporates diet changes & exercise for blood pressure control by DC Interventions/plan: Instruct on optimal blood pressure, hypertension & medications and Instruct on effects of sodium, alcohol, stress, exercise &hypertension 60 day Reassessments:: Progressing Reassessment Notes & Comments:: Pt's BP's are still slightly elevated. Encourage a low sodium diet. Will send report to pt's physician if necessary. Tobacco - 60-Day Tobacco Program Goals Stages of Change:: Maintenance Learning Barriers: Participates in education Tobacco Use: Non-smoker (Pt states he is no longer a smoker) Gave Education Materials For:: Tobacco Triggers, Pulmonary Disease, Risk Factors, Breathing Techniques, Medical Compliance, Pulmonary A&P, Exacerbation Signs & Symptoms and Stress & Relaxation Exacerbation Mgmt & Airway Clearance Reassessment: Demonstrates knowledge of O2 Rx at rest, Demonstrates knowledge of O2 Rx with exercise, Using O2 as prescribed, Has home O2 as prescribed and Uses port O2 as prescribed Bronchial Hygiene Plan: Yes: Pt demonstrates correctly for effective cough, Yes: Pt demo correct for CPT, Yes: Pt demo correct for device, Yes: Pt demo correct for NS nasal spray, Yes: Pt demo correct for sputum management, Yes: Pt demo correct for improved hydration, Yes: Pt demo correct for hand hygiene, Yes: Pt demo correct for evalute sputum, Yes: Pt demo correct for verbalize when to call MD and Yes: Pt demo correct for cleaning of respiratory equipment Medication Taking medications 100% of the time:: Met Medication reassessment: Yes: Pt demonstrates correct technique timing for MDI, Yes: Pt demonstrates correct technique timing for DPI, Yes: Pt demonstrates correct technique timing for NEB and Yes: Pt demonstrates correct technique timing for spacer Diabetes Diabetes:: No 60-day Reassessments:: Progressing Reassessment Notes & Comments:: Pt is scheduled to attend nutrition class. Pt encouraged to eat a low sodium heart healthy diet. [employer] - 90 DAYS Visit Session Number:: 8 Hypertension Hypertension Diagnosis:: Hypertension ICD-10 I10 Resting Blood Pressure:: 126/54 [place] [employer] Hypertension Guidelines Peak Exercise Blood Pressure:: 144/64 Outcomes/Goals: Able to verbalize/achieve optimal blood pressure <130/80 and Incorporates diet changes & exercise for blood pressure control by DC Interventions/plan: Instruct on optimal blood pressure, hypertension & medications and Instruct on effects of sodium, alcohol, stress, exercise &hypertension 90 day Reassessments:: Progressing Reassessment Notes & Comments:: Pt's BP's are still slightly elevated. Encourage a low sodium diet. Will send report to pt's physician if necessary. Tobacco - 90-Day Tobacco Program Goals Stages of Change:: Maintenance Learning Barriers: Participates in education Tobacco Use: Non-smoker (Pt states he is no longer a smoker) Gave Education Materials For:: Tobacco Triggers, Pulmonary Disease, Risk Factors, Breathing Techniques, Medical Compliance, Pulmonary A&P, Exacerbation Signs & Symptoms and Stress & Relaxation Exacerbation Mgmt & Airway Clearance Bronchial Hygiene Plan: Yes: Pt demonstrates correctly for effective cough, Yes: Pt demo correct for CPT, Yes: Pt demo correct for device, Yes: Pt demo correct for NS nasal spray, Yes: Pt demo correct for sputum management, Yes: Pt demo correct for improved hydration, Yes: Pt demo correct for hand hygiene, Yes: Pt demo correct for evalute sputum, Yes: Pt demo correct for verbalize when to call MD and Yes: Pt demo correct for cleaning of respiratory equipment Medication Medication reassessment: Yes: Pt demonstrates correct technique timing for MDI, Yes: Pt demonstrates correct technique timing for DPI, Yes: Pt demonstrates correct technique timing for NEB and Yes: Pt demonstrates correct technique timing for spacer Diabetes Diabetes:: No 90-day Reassessments:: Progressing Reassessment Notes & Comments:: Pt is scheduled to attend nutrition class. Pt encouraged to eat a low sodium heart healthy diet. [employer] Comp[employer] - Final Visit Session Number:: 8 Hypertension Hypertension Diagnosis:: Hypertension ICD-10 I10 Resting Blood Pressure:: 126/54 [place] [employer] Hypertension Guidelines Peak Exercise Blood Pressure:: 144/64 Outcomes/Goals: Able to verbalize/achieve optimal blood pressure <130/80 and Incorporates diet changes & exercise for blood pressure control by DC Tobacco - Final Tobacco Program Goals Stages of Change:: Maintenance Learning Barriers: Participates in education Tobacco Use: Non-smoker (Pt states he is no longer a smoker) Exacerbation Mgmt & Airway Clearance Bronchial Hygiene Plan: Yes: Pt demonstrates correctly for effective cough, Yes: Pt demo correct for CPT, Yes: Pt demo correct for device, Yes: Pt demo correct for NS nasal spray, Yes: Pt demo correct for sputum management, Yes: Pt demo correct for improved hydration, Yes: Pt demo correct for hand hygiene, Yes: Pt demo correct for evalute sputum, Yes: Pt demo correct for verbalize when to call MD and Yes: Pt demo correct for cleaning of respiratory equipment Medication Medication reassessment: Yes: Pt demonstrates correct technique timing for MDI, Yes: Pt demonstrates correct technique timing for DPI, Yes: Pt demonstrates correct technique timing for NEB and Yes: Pt demonstrates correct technique timing for spacer Diabetes Diabetes:: No Final Reassessments of Goals:: Progressing Reassessment Notes & Comments:: Pt is scheduled to attend nutrition class. Pt encouraged to eat a low sodium heart healthy diet. Patient Health Questionnaire PHQ-9 Screening 30-Day Re-eval Assessment: 1. Little interest or pleasure in doing things: Not at all 2. Feeling down, depressed, or hopeless: Not at all 3. Trouble falling or staying asleep, or sleeping too much: Several days 4. Feeling tired or having little energy: Nearly every day 5. Poor appetite or overeating: Not at all 6. Feeling bad about yourself -- or that you are a failure or have let yourself or your family down: Not at all 7. Trouble concentrating on things, such as reading the newspaper or watching television: Not at all 8. Moving or speaking so slowly that other people could have noticed. Or the opposite - being so fidgety or restless that you have been moving around a lot more than usual: Not at all 9. Thoughts that you would be better off , or of hurting yourself in some way: Not at all How difficult have these problems made it for you to do your work, take care of things at home, or get along with other people?: Somewhat difficult Total Score: 4 Knowledge Questionaire (BCKQ) Information Information: [place] COPD Knowledge Questionnaire (BCKQ) This questionnaire is designed to find out what you know about your lung problem. It should be completed without help form anyone else. This usually takes between 10 and 20 minutes. Your answers will help us to find out what information you need to help you to understand and manage your lung condition. [place] which you think is the correct answer. Nutrition Survey Nutrition Survey Instructions Scoring Instructions
[2024-10-02 08:04] VITALS: BP 126/54; BMI 35.7
[2024-10-02 08:16] VITALS: BP 126/54; BP 144/64; O2SAT 93
== END 2024-10-07 23:59 ==
LOC: PR 13:00
DX: J44.9 Chronic obstructive pulmonary disease, unspecified (principal)
CPT/HCPCS: 97150; 94626

== ENCOUNTER 2024-11-06 08:30 | Outpatient (RCR) | payer MEDICARE, MEDICAID, SELFPAY ==
[2024-10-02 08:04] VITALS: BMI 35.7
[2024-10-30 08:39] VITALS: BP 143/71; PULSE 94; RESP 18; O2SAT 96
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
--- NOTE | 2024-10-31 14:02 | WC ---
PHOTO 10/30/24 LEFT SIFUENTES
[2024-11-06 08:45] VITALS: BP 121/49; PULSE 89; RESP 16; TEMP 36.3
--- NOTE | 2024-11-06 10:11 | PCM.WC.PN ---
History of Present Illness Date of Service: 11/06/24 Chief Complaint: Left leg Ulcer History of Wound: Mr. Tellez is a 64-year-old who had previously been here and now presents due to nonhealing left lower extremity ulcer. Noted 2 weeks ago. No known precipitating factor. Suspects that he may have broken his skin while trying to wear his compression. Has been using Silvadene at home without significant improvement. Due to pain from the ulcer, has not been able to wear his compression consistently otherwise, he reports compliance with his compression. Aside from his chronic morbidities, he states that he feels well. No chills or fever. Quit smoking last year. Progress of Wound: Has had some concerns with his supply. No new concerns reported otherwise. Some improvement noted. Objective Data Objective Data Vital Signs: Vital Signs Temp Pulse Resp BP Pulse Ox O2 Del Method O2 Flow Rate 97.4 F L 89 16 121/49 H 96 Nasal Cannula 3 11/06/24 08:45 11/06/24 08:45 11/06/24 08:45 11/06/24 08:45 10/30/24 08:39 11/06/24 08:45 10/30/24 08:39 Oxygen Flow Rate (L/min) 3 Oxygen Delivery Method Nasal Cannula Charges/Coding Procedures Integumentary 111xxx-113xx: 08370 Shari subq tissue 20 sq cm/< Physical Exam Const alert, oriented x3 and no apparent distress General Appearance: cooperative and comfortable HEENT normocephalic and head/scalp atraumatic Eyes EOMs intact bilaterally General Eye: normal appearance of both eyes Neck full ROM General: normal visual inspection Resp Effort and Inspection: able to speak in complete sentences Extremity General Extremity: edema Skin Wounds: wounds noted size Size: See clinical note, bed granulating well, margins well approximated, no odor, open and surrounding erythema Neuro oriented x3, CN's II-XII intact bilaterally and moves all extremities Psych mental status grossly normal, thought process normal, cooperative and affect normal Debridement Note Debridement Note Wound debrided: Left lower extremity Type of Debridement: Excisional debridement Anesthesia Used: 5% Lidocaine Gel Depth: Down to and including healthy tissue and in the subcutaneous layer Percentage of wound debrided: 100 Instrument Used: 5mm curette Tissue Removed: Slough and devitalized tissue Severity: Fat Layer Exposed Amount of bleeding with debridement: Mild Bleeding Controlled with: Pressure Patient tolerated procedure: Patient tolerated procedure well Post-Debridement Measurements and Additional Note: Post-Debridement Measurements/Treatment - Nurse 1 - General Ulcer Assessment Start: 10/30/24 08:23 Freq: Status: Active Protocol: MARYLU Activity Type Activity Date Activity User E-sign Co-sign Detail Recorded Client Recorded Date Recorded By Document 10/30/24 08:39 KW [id number] 10/30/24 08:45 KW Document 11/06/24 08:45 KW [id number] 11/06/24 08:53 KW 10/30/24 11/06/24 08:39 08:45 - Today's Visit Information Type of service Follow-up Visit Follow-up Visit (Physician/CONSTRUCTION PROJECT ADMINISTRATOR (Physician/CONSTRUCTION PROJECT ADMINISTRATOR ) ) Arrival Mode Ambulatory Ambulatory Patient Identification Verified (Name & Yes Yes ) Vital Signs Temperature (97.8 F-99.1 F) 97.4 F L Temperature Source Temporal Pulse Rate (60-100) 94 89 Pulse Location Monitor Monitor Respiratory Rate (12-18) 18 16 Respiratory rate source Observation Observation Pulse Oximetry 96 Oxygen Delivery Method Nasal Cannula Nasal Cannula O2 L/MIN (L/min) 3 Blood Pressure (90/60-120/80) 143/71 H 121/49 H Blood Pressure Mean (mm Hg) 95 73 Source Monitor Monitor Position Semi-Fowlers Semi-Fowlers Blood Pressure Location Right Arm Left Arm History Since Last Visit- (Skip if this is Patient's initial visit) Have you changed medications since your No last visit? Any new allergies or adverse reactions No Had a fall/change in ADL's that may No increase risk of falls Signs or symptoms of abuse and/or No neglect since last visit Have you been in the hospital since your No last visit? Has dressing in place as prescribed Yes Has compression in place as prescribed Yes Has offloadiing in place as prescribed N/A Experienced any changes in pain level or No management Left Footwear Regular Shoe Regular Shoe Right Footwear Regular Shoe Regular Shoe Pain Scale: 0-10 Numeric Is Patient Pain Free? Yes Yes Lower Extremity Assessment/ Foot Assessment/ Toe Nail Assessment Right -Posterior Tibial Doppler Monophasic -Extremity Color Hyperpigmented -Hair Growth on Legs No -Hair Growth on Toes No -Temperature of Extremity Cool -Capillary Refill Less than 3 Seconds -Thick Yes -Discolored Yes -Deformed No -Improper Length & Hygeine No Left -Posterior Tibial Doppler Monophasic -Dorsalis Pedis Doppler Monophasic -Extremity Color Hemosiderin -Hair Growth on Legs No -Hair Growth on Toes No -Temperature of Extremity Cool -Capillary Refill Less than 3 Seconds -Thick Yes -Discolored Yes -Deformed No -Improper Length & Hygeine No Communication Assessment Preferred language Italian Manager Sourcing Required No Able to Read Yes Able to Write Yes Communication Tools None Right Hearing Abillity Normal Left Hearing Abillity Normal Visual Assistive Devices None Teaching Assessment Preferences Verbal,Written, Demonstration Barriers to Learning None Readiness To Learn Excellent Willingness to Engage in Self Management High Activies Readiness to Engage in Self Management High Activities Anxiety Level Calm Cooperation Cooperative Perception Coherent Interest in Health Problem Asks Questions Education Importance Acknowledges Need Does Patient Smoke tobacco or other Yes substances Smoking Status Former smoker Is Patient Diabetic No Functional Assessment Recent Decline in Ability to Perform Denies Any Declines Culture/Mosque/Senior Database Administrator Cultural/Mosque Needs that may affect No Treatment Plan Would you allow our hospital financial services education consultant to No meet you for the purpose of spiritual/ emotional support? Senior Database Administrator to contact place of religious No WC - Nurse 1 - General Ulcer Measurement Start: 10/30/24 08:23 Freq: Status: Active Protocol: Activity Type Activity Date Activity User E-sign Co-sign Detail Recorded Client Recorded Date Recorded By Document 10/30/24 08:39 KW [id number] 10/30/24 08:45 KW Document 11/06/24 08:45 KW [id number] 11/06/24 08:53 KW 10/30/24 11/06/24 08:39 08:45 Wound Center Nurse 1 #3 LT SIFUENTES -Current Size (cm) - Length 1.3 0.5 -Current Size (cm) - Width 2 1.7 -Current Size (cm) - Depth 0.1 0.1 -Total Square Cm 2.6 0.85 -Date of Last Picture (Recall this 10/30/24 field) -Photo Taken No -Epithelialization Medium 34-66% -Tunneling No -Undermining/Tunneling No -Circular Undermining No -Exudate Amt Medium Medium -Exudate Type Serosanguineous Sanguineous -Wound Margin Distinct, Distinct, Outline Outline Attached Attached -Granulation Amt Small (1-33%) Medium (34-66%) -Granulation Quality Red Red -Necrosis Amt Large (67-100%) -Necrotic Tissue Type Adherent Slough -Texture (Alyson-wound Skin Appearance) Assessed Assessed -Moisture (Alyson-wound Skin Appearance) Assessed Assessed -Color (Alyson-wound Skin Appearance) Assessed, Assessed, Hemosiderin Erythema Staining -Temperature (Alyson-wound Skin No Abnormality No Abnormality Appearance) (Pt Warm) (Pt Warm) -Tenderness on Palpation (Alyson-wound No No Skin Appearance) -Ulcer Cleansing Soap and Water Rinsed/ Irrigated with Saline -Foul Odor after Cleansing No No -Anesthetic Used 5% Lidocaine 5% Lidocaine Gel Gel Right Calf (cm) 40 Right Ankle (cm) 24 Left Calf (cm) 40 Left Ankle (cm) 24 WC - Nurse 2 - General Ulcer CM Notes Start: 10/30/24 08:23 Freq: Status: Active Protocol: Activity Type Activity Date Activity User E-sign Co-sign Detail Recorded Client Recorded Date Recorded By Document 10/30/24 09:01 [id number] 10/30/24 09:06 Document 11/06/24 09:20 [id number] 11/06/24 09:25 10/30/24 11/06/24 09:01 09:20 Wound Center Nurse 2 #3 LT SIFUENTES -Time 09:01 09:21 -Correct Patient Yes Yes -Correct Side, Site, Position Yes Yes -Correct Procedure Yes Yes -Procedure Performed Yes Yes -Type of Procedure Debridement Debridement -Clinical Debridement Subcutaneous Subcutaneous -Tissue Removed Subcutaneous Subcutaneous -Post Debridement (cm) - Length 1.0 0.7 -Post Debridement (cm) - Width 1.6 1.4 -Post Debridement (cm) - Depth 0.1 0.1 -Total Square (Post) (cm) 1.60 0.98 -Area of Debridement (cm) - Length 1.0 0.7 -Area of Debridement (cm) - Width 1.6 1.4 -Total Square (Area) (cm) 1.60 0.98 -Tunneling No No -Undermining/Tunneling No No -Circular Undermining No No -Wound/Ulcer Outcome Not Healed Not Healed -Ulcer Cleansing Rinsed/ Rinsed/ Irrigated with Irrigated with Saline Saline -Foul Odor after Cleansing No No -Bioengineered Tissue No No -Bleeding Controlled with Pressure Pressure -Treatment Response Procedure Procedure Tolerated Well Tolerated Well -Debridement - Subq, 1st 20sq cm Yes Yes Pain Scale: 0-10 Numeric Is Patient Pain Free? Yes Yes WC - Nurse 3 - General Ulcer D/C NN Start: 10/30/24 08:23 Freq: Status: Active Protocol: Activity Type Activity Date Activity User E-sign Co-sign Detail Recorded Client Recorded Date Recorded By Document 10/30/24 09:21 DL [id number] 10/30/24 09:22 DL Document 11/06/24 09:54 KW [id number] 11/06/24 09:55 KW 10/30/24 11/06/24 09:21 09:54 Wound Care Center Nurse 3 #3 LT SIFUENTES -Ulcer Cleansing Rinsed/ Irrigated with Saline -Foul Odor after Cleansing No -Primary Dressing Applied Aquacel Extra Aquacel Extra, NonAdherent Contact Layer -Primary Dressing Covered/Secured with Dry Gauze & Roll Gauze, Secured with Tape -Aquacel Extra 1 1 KATHIE -Tubular Bandage Double Layer Single Layer -Size of Tubigrip Used Size F Size E -Size E ($) 1 -Size F ($) 2 Treatment Response Procedure Tolerated Well Pain Scale: 0-10 Numeric Is Patient Pain Free? Yes Yes - Visit Discharge Discharge Condition Stable Stable Ambulatory Status Ambulatory Ambulatory Medication Reconcilliation completed & No provided to patient/care provider Clinical Summary of Care Provided Yes Assessment/Plan Assessment/Plan (1) Ulcer of left lower extremity with fat layer exposed: CODE(S): L97.922 - Non-pressure chronic ulcer of unspecified part of left lower leg with fat layer exposed (2) Bilateral lower extremity edema: CODE(S): R60.0 - Localized edema (3) PAD (peripheral artery disease): CODE(S): I73.9 - Peripheral vascular disease, unspecified (4) Respiratory failure with hypoxia: CODE(S): J96.91 - Respiratory failure, unspecified with hypoxia QUALIFIERS: Chronicity: chronic Qualified Code(s): J96.11 - Chronic respiratory failure with hypoxia (5) Anticoagulated on Coumadin: CODE(S): Z51.81 - Encounter for therapeutic drug level monitoring; Z79.01 - [facility] (current) use of anticoagulants PLAN: Plan Debridement done as documented above, procedure was well-tolerated. No new concerns reported at this time however, he has had concerns with his supplies and dressing instructions. Reeducated. Continue Aquacel extra daily to twice daily depending on drainage. Continue use of compression stockings, leg elevation and exercise as tolerated. Optimal protein intake discussed, he voiced understanding. His questions were answered and was advised to let us know if he has any further questions or concerns, he voiced understanding. Follow-up in a week or sooner if needed. This note was generated with [employer] dictation software. It may contain incorrect words, spelling, and punctuation that were not noted in checking the note before signing.
== END 2024-11-07 23:59 | disposition home or self-care (01) ==
LOC: WC 08:30
PROVIDERS: Visit Provider Internal Medicine
DX: L97.922 Non-pressure chronic ulcer of unspecified part of left lower leg with fat layer exposed (principal); J96.11 Chronic respiratory failure with hypoxia; J44.9 Chronic obstructive pulmonary disease, unspecified; I10 Essential (primary) hypertension; K21.9 Gastro-esophageal reflux disease without esophagitis; I73.9 Peripheral vascular disease, unspecified; Z87.891 Personal history of nicotine dependence; Z79.01 Long term (current) use of anticoagulants; R60.0 Localized edema; Z51.81 Encounter for therapeutic drug level monitoring
CPT/HCPCS: 11042; 99213; G0463

== ENCOUNTER → 2024-11-06 | Outpatient (CLI) | payer MEDICARE, MEDICAID, SELFPAY ==
[2024-09-02 09:34] VITALS: BMI 36.1
[2024-10-02 08:04] VITALS: BMI 35.7
[2024-10-30 10:54] VITALS: BMI 35.7
--- NOTE | 2024-11-06 10:16 | NM_ITS ---
PROCEDURE: MUGA REST OR STRESS - SINGLE REASON FOR EXAM: Evaluate left ventricular ejection fraction. TECHNIQUE: Standard MUGA protocol. Dose: 27.3 mCi ultra tag technetium 99 M red blood cells. COMPARISON: None. FINDINGS: Normal left ventricular motion is seen throughout. The calculated left ventricular ejection fraction was 60%. NM/MUGA Rest or Stress - Single IMPRESSION: Normal left ventricular motion, with left ventricular ejection fraction of 60%. Reading Location: [id number]
== END | disposition home or self-care (01) ==
LOC: NM 10:14
PROVIDERS: Referring Provider Internal Medicine Cardiovascular Disease; Visit Provider Internal Medicine Cardiovascular Disease
DX: I51.89 Other ill-defined heart diseases (principal)
CPT/HCPCS: 78472; A9560

== ENCOUNTER 2024-11-07 13:00 | Outpatient (RCR) | payer MEDICARE, MEDICAID, SELFPAY ==
[2024-10-02 08:04] VITALS: BMI 35.7
[2024-10-08 00:35] VITALS: BP 126/54; BP 144/64; BMI 35.7
--- NOTE | 2024-10-30 10:38 | PCM.PR.TP ---
Exercise - Initial Assessment Visit Session Number:: 14 Physician Prescribed Exercise Modalities: Treadmill, SciFit Stepper and SciFit Pro-II Ergometer Target HR:: 118 (94-118) Current RPD:: 2 Maximum Exercise HR:: 101 Resting Blood Pressure: 122/52 Maximum Exercise Blood Pressure: 160/56 Minimum SpO2 with exercise: 90 (pt on 3L/min with exercise) EKG Type: NSR w/sinus arrythmia to sinus tachyw/occas PAC ans PVC Nutrition/Wt Mgmt - Initial Visit Session Number:: 14 Weight Management Admit Height:: 5 ft 8 in Admit Weight:: 235 lb Admit BMI:: 35.7 Nutrition/Wt Mgmt - 30-Day Visit Date of Eval: 10/30/24 Session Number:: 14 Weight Management Height: 5 ft 8 in Weight:: 235 lb BMI: 35.7 Nutrition/Wt Mgmt - 60-Day Visit Date of Eval: 10/30/24 Session Number:: 14 Weight Management Height: 5 ft 8 in Weight:: 235 lb BMI: 35.7 Weight Goals Progress:: Progressing (nannette is scheduled to attend nutrition class. Pt will be encouraged to eat a heart healthy low sodium diet.) Nutrition/Wt Mgmt - 90-Day Visit Session Number:: 14 Weight Management Height: 5 ft 8 in Weight:: 235 lb BMI: 35.7 Weight Goals Progress:: Progressing (nannette is scheduled to attend nutrition class. Pt will be encouraged to eat a heart healthy low sodium diet.) Nutrition/Wt Mgmt - Final Visit Session Number:: 14 Weight Management Height: 5 ft 8 in Weight:: 235 lb BMI: 35.7 Psychosocial - Initial Assess Visit Session Number:: 14 Problems/Goals History of Emotional Disorders: None Psychosocial Goals: 1. Patient is free from overwhelming symtoms of depression (or anxiety, 2. Identifies personal stressors & states the strategies for managing, 3. Identifies activities to decrease isolation and/or symptoms of, 4. Improved psychosocial coping skills., 5. Verbalizes coping strategies., 6. Adequate treatment of depression. and 7. Improved Q.O.L. Psychosocial Test Tool Used:: Pulmonary QOL and PHQ-9 Questionnaire Referred to MD for counseling:: No Referral to Behavioral Health PS - Interventions: Yes: Attend Stress Management Classes Intervention/Plan: See List Interventions/Plan:: Assess stressors,coping strategies & signs of derpression on admission, Instruct/assist pt to develop coping & personal stress Mgt strategies, Refer to Behavioral Health if appropriate, Refer to Physician if appropriate, Instruct patient to recognize signs & symptoms of depression, Instruct patient to recog and Other additional plan/intervention Comments:: pt denies any psychosocial issues at this time. Psychosocial - 30-Day Visit Date of Eval: 10/30/24 Session Number:: 14 Problems/Goals History of Emotional Disorders: None Psychosocial Goals: 1. Patient is free from overwhelming symtoms of depression (or anxiety, 2. Identifies personal stressors & states the strategies for managing, 3. Identifies activities to decrease isolation and/or symptoms of, 4. Improved psychosocial coping skills., 5. Verbalizes coping strategies., 6. Adequate treatment of depression. and 7. Improved Q.O.L. Psychosocial Test Tool Used:: Pulmonary QOL and PHQ-9 Questionnaire Referred to MD for counseling:: No Referral to Behavioral Health PS - Interventions: Yes: Attend Stress Management Classes Plan Interventions/Plan:: Assess stressors,coping strategies & signs of derpression on admission, Instruct/assist pt to develop coping & personal stress Mgt strategies, Refer to Behavioral Health if appropriate, Refer to Physician if appropriate, Instruct patient to recognize signs & symptoms of depression, Instruct patient to recog and Other additional plan/intervention Comments:: pt denies any psychosocial issues at this time. Psychosocial - 60-Day Visit Date of Eval: 10/30/24 Session Number:: 14 Problems/Goals History of Emotional Disorders: None Psychosocial Goals: 1. Patient is free from overwhelming symtoms of depression (or anxiety, 2. Identifies personal stressors & states the strategies for managing, 3. Identifies activities to decrease isolation and/or symptoms of, 4. Improved psychosocial coping skills., 5. Verbalizes coping strategies., 6. Adequate treatment of depression. and 7. Improved Q.O.L. Psychosocial Test Tool Used:: Pulmonary QOL and PHQ-9 Questionnaire Referred to MD for counseling:: No Referral to Behavioral Health PS - Interventions: Yes: Attend Stress Management Classes Plan Interventions/Plan:: Assess stressors,coping strategies & signs of derpression on admission, Instruct/assist pt to develop coping & personal stress Mgt strategies, Refer to Behavioral Health if appropriate, Refer to Physician if appropriate, Instruct patient to recognize signs & symptoms of depression, Instruct patient to recog and Other additional plan/intervention Comments:: pt denies any psychosocial issues at this time. Psychosocial - 90-Day Visit Session Number:: 14 Problems/Goals History of Emotional Disorders: None Psychosocial Goals: 1. Patient is free from overwhelming symtoms of depression (or anxiety, 2. Identifies personal stressors & states the strategies for managing, 3. Identifies activities to decrease isolation and/or symptoms of, 4. Improved psychosocial coping skills., 5. Verbalizes coping strategies., 6. Adequate treatment of depression. and 7. Improved Q.O.L. Psychosocial Test Tool Used:: Pulmonary QOL and PHQ-9 Questionnaire Referred to MD for counseling:: No Referral to Behavioral Health PS - Interventions: Yes: Attend Stress Management Classes Plan Interventions/Plan:: Assess stressors,coping strategies & signs of derpression on admission, Instruct/assist pt to develop coping & personal stress Mgt strategies, Refer to Behavioral Health if appropriate, Refer to Physician if appropriate, Instruct patient to recognize signs & symptoms of depression, Instruct patient to recog and Other additional plan/intervention Comments:: pt denies any psychosocial issues at this time. Psychosocial - Final Assess Visit Session Number:: 14 Problems/Goals History of Emotional Disorders: None Psychosocial Goals: 1. Patient is free from overwhelming symtoms of depression (or anxiety, 2. Identifies personal stressors & states the strategies for managing, 3. Identifies activities to decrease isolation and/or symptoms of, 4. Improved psychosocial coping skills., 5. Verbalizes coping strategies., 6. Adequate treatment of depression. and 7. Improved Q.O.L. Psychosocial Test Tool Used:: Pulmonary QOL and PHQ-9 Questionnaire Referred to MD for counseling:: No Referral to Behavioral Health PS - Interventions: Yes: Attend Stress Management Classes Plan Interventions/Plan:: Assess stressors,coping strategies & signs of derpression on admission, Instruct/assist pt to develop coping & personal stress Mgt strategies, Refer to Behavioral Health if appropriate, Refer to Physician if appropriate, Instruct patient to recognize signs & symptoms of depression, Instruct patient to recog and Other additional plan/intervention Comments:: pt denies any psychosocial issues at this time. Oxygen & Oxygen Titration Init Visit Session Number:: 14 Initial Assessment SpO2:: 90 (pt on 3L/min with exercise) Oxygen & Oxygen Titration 30D Visit Date of Eval: 10/30/24 Session Number:: 14 Reassessment SpO2:: 90 (pt on 3L/min with exercise) Oxygen & Oxygen Titration 60D Visit Date of Eval: 10/30/24 Session Number:: 14 Reassessment Reassessment- 60 Days: Demonstrate knowledge of O2 Rx at rest & w/exercise, Using O2 as Rx'd, Has home O2 as Rx'd and Uses port O2 as Rx'd SpO2:: 90 (pt on 3L/min with exercise) Oxygen & Oxygen Titration 90D Visit Date of Eval: 10/30/24 Session Number:: 14 Reassessment SpO2:: 90 (pt on 3L/min with exercise) Oxygen & Oxygen Titration ADAM Visit Date of Eval: 10/30/24 Session Number:: 14 Reassessment SpO2:: 90 (pt on 3L/min with exercise) [employer]onents - Initial Visit Session Number:: 14 Hypertension BP: 122/52 [place] [employer] Hypertension Guidelines Blood Pressure: 160/56 Outcomes/Goals: Able to verbalize/achieve optimal blood pressure <130/80 and Incorporates diet changes & exercise for blood pressure control by DC Tobacco - Initial Assessment Tobacco Program Goals Stages of Change:: Maintenance (pt is no longer a smoker) Gave Education Materials For:: Tobacco Triggers, Pulmonary Disease, Risk Factors, Breathing Techniques, Medical Compliance, Pulmonary A&P, Exacerbation Signs & Symptoms and Stress & Relaxation Diabetes Diabetes:: No [employer] - 30 DAYS Visit Date of Eval: 10/30/24 Session Number:: 14 Hypertension Resting Blood Pressure:: 122/52 [place] [employer] Hypertension Guidelines Peak Exercise Blood Pressure:: 160/56 Outcomes/Goals: Able to verbalize/achieve optimal blood pressure <130/80 and Incorporates diet changes & exercise for blood pressure control by DC Interventions/plan: Instruct on optimal blood pressure, hypertension & medications and Instruct on effects of sodium, alcohol, stress, exercise &hypertension 30 day Reassessments:: Progressing Reassessment Notes & Comments:: Pt's BP's are slightly elevated. Will encourage a low sodium diet and weight loss. Will continue to monitor and send report to pt's physician if necessary. Tobacco - 30-Day Tobacco Program Goals Stages of Change:: Maintenance (pt is no longer a smoker) Gave Education Materials For:: Tobacco Triggers, Pulmonary Disease, Risk Factors, Breathing Techniques, Medical Compliance, Pulmonary A&P, Exacerbation Signs & Symptoms and Stress & Relaxation Exacerbation Mgmt & Airway Clearance Reassessment: Demonstrates knowledge of O2 Rx at rest, Demonstrates knowledge of O2 Rx with exercise, Using O2 as prescribed, Has home O2 as prescribed and Uses port O2 as prescribed Bronchial Hygiene Plan: Yes: Pt demonstrates correctly for effective cough, Yes: Pt demo correct for CPT, Yes: Pt demo correct for device, Yes: Pt demo correct for NS nasal spray, Yes: Pt demo correct for sputum management, Yes: Pt demo correct for improved hydration, Yes: Pt demo correct for hand hygiene, Yes: Pt demo correct for evalute sputum, Yes: Pt demo correct for verbalize when to call MD and Yes: Pt demo correct for cleaning of respiratory equipment Medication Medication reassessment: Yes: Pt demonstrates correct technique timing for MDI, Yes: Pt demonstrates correct technique timing for DPI, Yes: Pt demonstrates correct technique timing for NEB and Yes: Pt demonstrates correct technique timing for spacer Diabetes Diabetes:: No [employer] - 60 DAYS Visit Date of Eval: 10/30/24 Session Number:: 14 Hypertension Resting Blood Pressure:: 122/52 [place] [employer] Hypertension Guidelines Peak Exercise Blood Pressure:: 160/56 Outcomes/Goals: Able to verbalize/achieve optimal blood pressure <130/80 and Incorporates diet changes & exercise for blood pressure control by DC Interventions/plan: Instruct on optimal blood pressure, hypertension & medications and Instruct on effects of sodium, alcohol, stress, exercise &hypertension 60 day Reassessments:: Progressing Reassessment Notes & Comments:: Pt's BP's are slightly elevated. Will encourage a low sodium diet and weight loss. Will continue to monitor and send report to pt's physician if necessary. Tobacco - 60-Day Tobacco Program Goals Stages of Change:: Maintenance (pt is no longer a smoker) Gave Education Materials For:: Tobacco Triggers, Pulmonary Disease, Risk Factors, Breathing Techniques, Medical Compliance, Pulmonary A&P, Exacerbation Signs & Symptoms and Stress & Relaxation Exacerbation Mgmt & Airway Clearance Reassessment: Demonstrates knowledge of O2 Rx at rest, Demonstrates knowledge of O2 Rx with exercise, Using O2 as prescribed, Has home O2 as prescribed and Uses port O2 as prescribed Bronchial Hygiene Plan: Yes: Pt demonstrates correctly for effective cough, Yes: Pt demo correct for CPT, Yes: Pt demo correct for device, Yes: Pt demo correct for NS nasal spray, Yes: Pt demo correct for sputum management, Yes: Pt demo correct for improved hydration, Yes: Pt demo correct for hand hygiene, Yes: Pt demo correct for evalute sputum, Yes: Pt demo correct for verbalize when to call MD and Yes: Pt demo correct for cleaning of respiratory equipment Medication Medication list reviewed:: Yes Taking medications 100% of the time:: Met (pt taking meds as prescribed.) Medication reassessment: Yes: Pt demonstrates correct technique timing for MDI, Yes: Pt demonstrates correct technique timing for DPI, Yes: Pt demonstrates correct technique timing for NEB and Yes: Pt demonstrates correct technique timing for spacer 60-day Reassessments:: Met Diabetes Diabetes:: No [employer] Components - 90 DAYS Visit Session Number:: 14 Hypertension Resting Blood Pressure:: 122/52 [place] [employer] Hypertension Guidelines Peak Exercise Blood Pressure:: 160/56 Outcomes/Goals: Able to verbalize/achieve optimal blood pressure <130/80 and Incorporates diet changes & exercise for blood pressure control by DC Interventions/plan: Instruct on optimal blood pressure, hypertension & medications and Instruct on effects of sodium, alcohol, stress, exercise &hypertension 90 day Reassessments:: Progressing Reassessment Notes & Comments:: Pt's BP's are slightly elevated. Will encourage a low sodium diet and weight loss. Will continue to monitor and send report to pt's physician if necessary. Tobacco - 90-Day Tobacco Program Goals Stages of Change:: Maintenance (pt is no longer a smoker) Gave Education Materials For:: Tobacco Triggers, Pulmonary Disease, Risk Factors, Breathing Techniques, Medical Compliance, Pulmonary A&P, Exacerbation Signs & Symptoms and Stress & Relaxation Exacerbation Mgmt & Airway Clearance Bronchial Hygiene Plan: Yes: Pt demonstrates correctly for effective cough, Yes: Pt demo correct for CPT, Yes: Pt demo correct for device, Yes: Pt demo correct for NS nasal spray, Yes: Pt demo correct for sputum management, Yes: Pt demo correct for improved hydration, Yes: Pt demo correct for hand hygiene, Yes: Pt demo correct for evalute sputum, Yes: Pt demo correct for verbalize when to call MD and Yes: Pt demo correct for cleaning of respiratory equipment Medication Medication reassessment: Yes: Pt demonstrates correct technique timing for MDI, Yes: Pt demonstrates correct technique timing for DPI, Yes: Pt demonstrates correct technique timing for NEB and Yes: Pt demonstrates correct technique timing for spacer Diabetes Diabetes:: No [employer] Components - Final Visit Session Number:: 14 Hypertension Resting Blood Pressure:: 122/52 [place] [employer] Hypertension Guidelines Peak Exercise Blood Pressure:: 160/56 Outcomes/Goals: Able to verbalize/achieve optimal blood pressure <130/80 and Incorporates diet changes & exercise for blood pressure control by DC Tobacco - Final Tobacco Program Goals Stages of Change:: Maintenance (pt is no longer a smoker) Exacerbation Mgmt & Airway Clearance Bronchial Hygiene Plan: Yes: Pt demonstrates correctly for effective cough, Yes: Pt demo correct for CPT, Yes: Pt demo correct for device, Yes: Pt demo correct for NS nasal spray, Yes: Pt demo correct for sputum management, Yes: Pt demo correct for improved hydration, Yes: Pt demo correct for hand hygiene, Yes: Pt demo correct for evalute sputum, Yes: Pt demo correct for verbalize when to call MD and Yes: Pt demo correct for cleaning of respiratory equipment Medication Medication reassessment: Yes: Pt demonstrates correct technique timing for MDI, Yes: Pt demonstrates correct technique timing for DPI, Yes: Pt demonstrates correct technique timing for NEB and Yes: Pt demonstrates correct technique timing for spacer Diabetes Diabetes:: No Patient Health Questionnaire PHQ-9 Screening 60-Day Re-eval Assessment: 1. Little interest or pleasure in doing things: Not at all 2. Feeling down, depressed, or hopeless: Not at all 3. Trouble falling or staying asleep, or sleeping too much: Several days 4. Feeling tired or having little energy: Nearly every day 5. Poor appetite or overeating: Not at all 6. Feeling bad about yourself -- or that you are a failure or have let yourself or your family down: Not at all 7. Trouble concentrating on things, such as reading the newspaper or watching television: Not at all 8. Moving or speaking so slowly that other people could have noticed. Or the opposite - being so fidgety or restless that you have been moving around a lot more than usual: Not at all 9. Thoughts that you would be better off , or of hurting yourself in some way: Not at all How difficult have these problems made it for you to do your work, take care of things at home, or get along with other people?: Somewhat difficult Total Score: 4 Knowledge Questionaire (BCKQ) Information Information: [employer] COPD Knowledge Questionnaire (BCKQ) This questionnaire is designed to find out what you know about your lung problem. It should be completed without help form anyone else. This usually takes between 10 and 20 minutes. Your answers will help us to find out what information you need to help you to understand and manage your lung condition. Jerrell the emmonak which you think is the correct answer. Nutrition Survey Nutrition Survey Instructions Scoring Instructions
[2024-10-30 10:54] VITALS: BP 122/52; BP 160/56; O2SAT 90; BMI 35.7
== END 2024-11-07 23:59 ==
LOC: PR 13:00
DX: J44.9 Chronic obstructive pulmonary disease, unspecified (principal)
CPT/HCPCS: 97150; 94626

== ENCOUNTER 2024-11-20 09:15 | Outpatient (RCR) | payer MEDICARE, MEDICAID, SELFPAY ==
[2024-10-30 10:54] VITALS: BMI 35.7
[2024-11-08 01:23] VITALS: BP 121/49; PULSE 89; RESP 16; TEMP 36.3; O2SAT 96
[2024-11-13 08:45] VITALS: BP 142/59; PULSE 97; RESP 18; TEMP 36.8
--- NOTE | 2024-11-13 09:22 | PCM.WC.PN ---
History of Present Illness Date of Service: 11/13/24 Chief Complaint: Right lateral leg ulcer History of Wound: 62 year old male presents with a non healing ulcer on his right lateral leg that he bumped it awhile ago. He has had a venous procedure by Dr. Hidalgo not too long ago. He wears oxygen and states that he is trying to quit smoking, he states he smokes a couple per day now, some days he doesn't smoke at all. He has a significant cardiac and respiratory history. He is a poor historian. Wound care - Santyl nickel thickness covered with gauze daily or every other day. Tubigrip for compression. Today he denies fever, chills, nausea or vomiting. He states he has a good appetite. Progress of Wound: Improving. No new concerns reported. He states that he is doing his compression consistently. Objective Data Objective Data Vital Signs: Vital Signs Temp Pulse Resp BP Pulse Ox O2 Del Method O2 Flow Rate 98.2 F 97 18 142/59 H 96 Nasal Cannula 4 11/13/24 08:45 11/13/24 08:45 11/13/24 08:45 11/13/24 08:45 11/08/24 01:23 11/13/24 08:45 11/13/24 08:45 Oxygen Flow Rate (L/min) 4 Oxygen Delivery Method Nasal Cannula Charges/Coding Procedures Integumentary 111xxx-113xx: 22096 Shari subq tissue 20 sq cm/< Physical Exam Const alert, oriented x3 and no apparent distress General Appearance: cooperative and comfortable HEENT normocephalic and head/scalp atraumatic Eyes EOMs intact bilaterally General Eye: normal appearance of both eyes Neck full ROM General: normal visual inspection Resp Effort and Inspection: able to speak in complete sentences Extremity General Extremity: edema Skin Wounds: wounds noted size Size: See clinical note, bed granulating well, margins well approximated, no odor, open and surrounding erythema Neuro oriented x3, CN's II-XII intact bilaterally and moves all extremities Psych mental status grossly normal, thought process normal, cooperative and affect normal Debridement Note Debridement Note Wound debrided: Left lower extremity Type of Debridement: Excisional debridement Anesthesia Used: 5% Lidocaine Gel Depth: Down to and including healthy tissue and in the subcutaneous layer Percentage of wound debrided: 100 Instrument Used: 3mm curette Tissue Removed: Slough and devitalized tissue Severity: Fat Layer Exposed Amount of bleeding with debridement: Mild Bleeding Controlled with: Pressure Patient tolerated procedure: Patient tolerated procedure well Post-Debridement Measurements and Additional Note: Post-Debridement Measurements/Treatment - Nurse 1 - General Ulcer Assessment Start: 11/13/24 08:45 Freq: Status: Active Protocol: MARYLU Activity Type Activity Date Activity User E-sign Co-sign Detail Recorded Client Recorded Date Recorded By Document 11/13/24 08:45 RB [id number] 11/13/24 08:47 RB 11/13/24 08:45 - Today's Visit Information Type of service Follow-up Visit (Physician/MEDICAL RECORD RETRIEVAL SPECIALIST ) Arrival Mode Ambulatory Transfer Assistance None Patient Identification Verified (Name & Yes ) Patient Requires Transmission-Based No Precautions Vital Signs Temperature (97.8 F-99.1 F) 98.2 F Temperature Source Temporal Pulse Rate (60-100) 97 Pulse Location Monitor Respiratory Rate (12-18) 18 Respiratory rate source Observation Oxygen Delivery Method Nasal Cannula O2 L/MIN (L/min) 4 Blood Pressure (90/60-120/80) 142/59 H Blood Pressure Mean (mm Hg) 86 Source Monitor Position Semi-Fowlers Blood Pressure Location Left Arm History Since Last Visit- (Skip if this is Patient's initial visit) Have you changed medications since your No last visit? Any new allergies or adverse reactions No Had a fall/change in ADL's that may No increase risk of falls Signs or symptoms of abuse and/or No neglect since last visit Have you been in the hospital since your No last visit? Has dressing in place as prescribed Yes Has compression in place as prescribed N/A Has offloadiing in place as prescribed N/A Experienced any changes in pain level or No management Left Footwear Regular Shoe Right Footwear Regular Shoe Pain Scale: 0-10 Numeric Is Patient Pain Free? Yes - Nurse 1 - General Ulcer Measurement Start: 11/13/24 08:45 Freq: Status: Active Protocol: Activity Type Activity Date Activity User E-sign Co-sign Detail Recorded Client Recorded Date Recorded By Document 11/13/24 08:45 RB [id number] 11/13/24 08:47 RB 11/13/24 08:45 Wound Center Nurse 1 #3 LT SIFUENTES -Combined with other wound No -Current Size (cm) - Length 0.4 -Current Size (cm) - Width 0.6 -Current Size (cm) - Depth 0.1 -Total Square Cm 0.24 -Tunneling No -Undermining/Tunneling No -Circular Undermining No -Exudate Amt Medium -Exudate Type Serosanguineous -Wound Margin Distinct, Outline Attached -Granulation Amt Medium (34-66%) -Granulation Quality Hilda -Slough/Fibrin Yes -Necrosis Amt Medium (34-66%) -Necrotic Tissue Type Adherent Slough -Structure Exposed N/A -Texture (Alyson-wound Skin Appearance) Assessed -Moisture (Alyson-wound Skin Appearance) Dry/Scaly -Color (Alyson-wound Skin Appearance) Assessed -Temperature (Alyson-wound Skin No Abnormality Appearance) (Pt Warm) -Tenderness on Palpation (Alyson-wound No Skin Appearance) -Ulcer Cleansing Wound Cleanser -Foul Odor after Cleansing No -Anesthetic Used 5% Lidocaine Gel Lower Limb Edema Present Yes Left Calf (cm) 40.5 Left Ankle (cm) 24 WC - Nurse 2 - General Ulcer CM Notes Start: 11/13/24 08:45 Freq: Status: Active Protocol: Activity Type Activity Date Activity User E-sign Co-sign Detail Recorded Client Recorded Date Recorded By Document 11/13/24 08:54 [id number] 11/13/24 09:00 GM 11/13/24 08:54 Wound Center Nurse 2 #3 LT SIFUENTES -Time 08:54 -Correct Patient Yes -Correct Side, Site, Position Yes -Correct Procedure Yes -Procedure Performed Yes -Type of Procedure Debridement -Clinical Debridement Subcutaneous -Tissue Removed Subcutaneous -Post Debridement (cm) - Length 0.3 -Post Debridement (cm) - Width 0.5 -Post Debridement (cm) - Depth 0.1 -Total Square (Post) (cm) 0.15 -Area of Debridement (cm) - Length 0.3 -Area of Debridement (cm) - Width 0.5 -Total Square (Area) (cm) 0.15 -Tunneling No -Undermining/Tunneling No -Circular Undermining No -Wound/Ulcer Outcome Not Healed -Ulcer Cleansing Rinsed/ Irrigated with Saline -Foul Odor after Cleansing No -Bioengineered Tissue No -Bleeding Controlled with Pressure -Treatment Response Procedure Tolerated Well -Debridement - Subq, 1st 20sq cm Yes Pain Scale: 0-10 Numeric Is Patient Pain Free? Yes WC - Nurse 3 - General Ulcer D/C NN Start: 11/13/24 08:45 Freq: Status: Active Protocol: Activity Type Activity Date Activity User E-sign Co-sign Detail Recorded Client Recorded Date Recorded By Document 11/13/24 09:14 LIN [id number] 11/13/24 09:14 LIN 11/13/24 09:14 Wound Care Center Nurse 3 #3 LT SIFUENTES -Primary Dressing Applied Aquacel Extra, NonAdherent Contact Layer -Primary Dressing Covered/Secured with Dry Gauze & Roll Gauze, Secured with Tape -Aquacel Extra 1 Pain Scale: 0-10 Numeric Is Patient Pain Free? Yes WC - Visit Discharge Discharge Condition Stable Ambulatory Status Ambulatory Transportation Private Auto Medication Reconcilliation completed & No provided to patient/care provider Clinical Summary of Care Provided Yes Assessment/Plan Assessment/Plan (1) Ulcer of left lower extremity with fat layer exposed: CODE(S): L97.922 - Non-pressure chronic ulcer of unspecified part of left lower leg with fat layer exposed (2) Bilateral lower extremity edema: CODE(S): R60.0 - Localized edema (3) PAD (peripheral artery disease): CODE(S): I73.9 - Peripheral vascular disease, unspecified (4) Respiratory failure with hypoxia: CODE(S): J96.91 - Respiratory failure, unspecified with hypoxia QUALIFIERS: Chronicity: chronic Qualified Code(s): J96.11 - Chronic respiratory failure with hypoxia (5) Anticoagulated on Coumadin: CODE(S): Z51.81 - Encounter for therapeutic drug level monitoring; Z79.01 - shelter (current) use of anticoagulants PLAN: Plan Debridement done as documented above, procedure was well-tolerated. Improving. No new concerns reported. Continue Aquacel extra daily, cover with Adaptic. Continue use of compression stockings, leg elevation and exercise as tolerated. Optimal protein intake discussed, he voiced understanding. His questions were answered and was advised to let us know if he has any further questions or concerns, he voiced understanding. Follow-up in a week or sooner if needed. This note was generated with [employer] software. It may contain incorrect words, spelling, and punctuation that were not noted in checking the note before signing.
[2024-11-20 08:50] VITALS: BP 125/63; PULSE 55; RESP 16; TEMP 36.7
--- NOTE | 2024-11-20 12:51 | PN.PCM_ITS ---
History of Present Illness Date of Service: 11/20/24 Chief Complaint: Right lateral leg ulcer History of Wound: 62 year old male presents with a non healing ulcer on his right lateral leg that he bumped it awhile ago. He has had a venous procedure by Dr. Hidalgo not too long ago. He wears oxygen and states that he is trying to quit smoking, he states he smokes a couple per day now, some days he doesn't smoke at all. He has a significant cardiac and respiratory history. He is a poor historian. Wound care - Santyl nickel thickness covered with gauze daily or every other day. Tubigrip for compression. Today he denies fever, chills, nausea or vomiting. He states he has a good appetite. Progress of Wound: Healed. No new concerns reported at this time. Objective Data Objective Data Vital Signs: Vital Signs Temp Pulse Resp BP Pulse Ox O2 Del Method O2 Flow Rate 98.1 F 55 L 16 125/63 H 96 Room Air 4 11/20/24 08:50 11/20/24 08:50 11/20/24 08:50 11/20/24 08:50 11/08/24 01:23 11/20/24 08:50 11/13/24 08:45 Oxygen Flow Rate (L/min) 4 Oxygen Delivery Method Room Air Charges/Coding Visit Charges Office Visits / Consults: [id number] OV L3 Est 20min Physical Exam Const alert, oriented x3 and no apparent distress General Appearance: cooperative and comfortable HEENT normocephalic and head/scalp atraumatic Eyes EOMs intact bilaterally General Eye: normal appearance of both eyes Neck full ROM General: normal visual inspection Resp Effort and Inspection: able to speak in complete sentences Extremity General Extremity: edema Neuro oriented x3, CN's II-XII intact bilaterally and moves all extremities Psych mental status grossly normal, thought process normal, cooperative and affect normal Debridement Note Debridement Note Post-Debridement Measurements and Additional Note: Post-Debridement Measurements/Treatment WC - Nurse 1 - General Ulcer Assessment Start: 11/13/24 08:45 Freq: Status: Active Protocol: MARYLU Activity Type Activity Date Activity User E-sign Co-sign Detail Recorded Client Recorded Date Recorded By Document 11/13/24 08:45 RB [id number] 11/13/24 08:47 RB Document 11/20/24 08:50 KW [id number] 11/20/24 09:00 KW 11/13/24 11/20/24 08:45 08:50 - Today's Visit Information Type of service Follow-up Visit Follow-up Visit (Physician/SUPERVISOR SANDING (Physician/SUPERVISOR SANDING ) ) Arrival Mode Ambulatory Ambulatory Transfer Assistance None Patient Identification Verified (Name & Yes Yes ) Patient Requires Transmission-Based No Precautions Vital Signs Temperature (97.8 F-99.1 F) 98.2 F 98.1 F Temperature Source Temporal Temporal Pulse Rate (60-100) 97 55 L Pulse Location Monitor Monitor Respiratory Rate (12-18) 18 16 Respiratory rate source Observation Observation Oxygen Delivery Method Nasal Cannula Room Air O2 L/MIN (L/min) 4 Blood Pressure (90/60-120/80) 142/59 H 125/63 H Blood Pressure Mean (mm Hg) 86 83 Source Monitor Monitor Position Semi-Fowlers Semi-Fowlers Blood Pressure Location Left Arm Left Arm History Since Last Visit- (Skip if this is Patient's initial visit) Have you changed medications since your No No last visit? Any new allergies or adverse reactions No No Had a fall/change in ADL's that may No No increase risk of falls Signs or symptoms of abuse and/or No No neglect since last visit Have you been in the hospital since your No No last visit? Has dressing in place as prescribed Yes Yes Has compression in place as prescribed N/A Yes Has offloadiing in place as prescribed N/A N/A Experienced any changes in pain level or No No management Left Footwear Regular Shoe Regular Shoe Right Footwear Regular Shoe Regular Shoe Pain Scale: 0-10 Numeric Is Patient Pain Free? Yes Yes - Nurse 1 - General Ulcer Measurement Start: 11/13/24 08:45 Freq: Status: Active Protocol: Activity Type Activity Date Activity User E-sign Co-sign Detail Recorded Client Recorded Date Recorded By Document 11/13/24 08:45 RB [id number] 11/13/24 08:47 RB Document 11/20/24 08:50 KW [id number] 11/20/24 09:00 KW 11/13/24 11/20/24 08:45 08:50 Wound Center Nurse 1 #3 LT SIFUENTES -Combined with other wound No -Current Size (cm) - Length 0.4 0.1 -Current Size (cm) - Width 0.6 0.1 -Current Size (cm) - Depth 0.1 0 -Total Square Cm 0.24 0.01 -Tunneling No -Undermining/Tunneling No -Circular Undermining No -Exudate Amt Medium None Present -Exudate Type Serosanguineous -Wound Margin Distinct, Outline Attached -Granulation Amt Medium (34-66%) -Granulation Quality [place] -Slough/Fibrin Yes -Necrosis Amt Medium (34-66%) -Necrotic Tissue Type Adherent Slough -Structure Exposed N/A -Texture (Alyosn-wound Skin Appearance) Assessed Assessed -Moisture (Alyson-wound Skin Appearance) Dry/Scaly Assessed,Dry/ Scaly -Color (Alyson-wound Skin Appearance) Assessed Assessed -Temperature (Alyson-wound Skin No Abnormality No Abnormality Appearance) (Pt Warm) (Pt Warm) -Tenderness on Palpation (Alyson-wound No No Skin Appearance) -Ulcer Cleansing Wound Cleanser Soap and Water -Foul Odor after Cleansing No No -Anesthetic Used 5% Lidocaine 5% Lidocaine Gel Gel Lower Limb Edema Present Yes Right Calf (cm) 40 Right Ankle (cm) 23.5 Left Calf (cm) 40.5 40 Left Ankle (cm) 24 23.5 WC - Nurse 2 - General Ulcer CM Notes Start: 11/13/24 08:45 Freq: Status: Active Protocol: Activity Type Activity Date Activity User E-sign Co-sign Detail Recorded Client Recorded Date Recorded By Document 11/13/24 08:54 [id number] 11/13/24 09:00 Document 11/20/24 09:45 [id number] 11/20/24 09:46 11/13/24 11/20/24 08:54 09:45 Wound Center Nurse 2 #3 LT SIFUENTES -Time 08:54 09:45 -Correct Patient Yes Yes -Correct Side, Site, Position Yes Yes -Correct Procedure Yes No -Procedure Performed Yes No -Type of Procedure Debridement -Clinical Debridement Subcutaneous -Tissue Removed Subcutaneous -Post Debridement (cm) - Length 0.3 -Post Debridement (cm) - Width 0.5 -Post Debridement (cm) - Depth 0.1 -Total Square (Post) (cm) 0.15 -Area of Debridement (cm) - Length 0.3 -Area of Debridement (cm) - Width 0.5 -Total Square (Area) (cm) 0.15 -Tunneling No No -Undermining/Tunneling No No -Circular Undermining No No -Wound/Ulcer Outcome Not Healed Healed- Epithelialized -Ulcer Cleansing Rinsed/ Irrigated with Saline -Foul Odor after Cleansing No No -Bioengineered Tissue No No -Bleeding Controlled with Pressure NA -Treatment Response Procedure Tolerated Well -Offloading No -Debridement - Subq, 1st 20sq cm Yes Pain Scale: 0-10 Numeric Is Patient Pain Free? Yes Yes - Nurse 3 - General Ulcer D/C NN Start: 11/13/24 08:45 Freq: Status: Active Protocol: Activity Type Activity Date Activity User E-sign Co-sign Detail Recorded Client Recorded Date Recorded By Document 11/13/24 09:14 KW [id number] 11/13/24 09:14 KW Document 11/20/24 09:53 JF [id number] 11/20/24 09:54 JF 11/13/24 11/20/24 09:14 09:53 Wound Care Center Nurse 3 #3 LT SIFUENTES -Ulcer Cleansing Rinsed/ Irrigated with Saline -Primary Dressing Applied Aquacel Extra, NonAdherent NonAdherent Contact Layer Contact Layer -Primary Dressing Covered/Secured with Dry Gauze & Dry Gauze, Roll Gauze, Secured with Secured with Tape Tape -Aquacel Extra 1 Pain Scale: 0-10 Numeric Is Patient Pain Free? Yes Yes - Visit Discharge Discharge Condition Stable Stable Ambulatory Status Ambulatory Ambulatory Transportation Private Auto Private Auto Medication Reconcilliation completed & No Yes provided to patient/care provider Clinical Summary of Care Provided Yes Yes Assessment/Plan Assessment/Plan (1) Ulcer of left lower extremity with fat layer exposed: CODE(S): L97.922 - Non-pressure chronic ulcer of unspecified part of left lower leg with fat layer exposed (2) Bilateral lower extremity edema: CODE(S): R60.0 - Localized edema (3) PAD (peripheral artery disease): CODE(S): I73.9 - Peripheral vascular disease, unspecified (4) Respiratory failure with hypoxia: CODE(S): J96.91 - Respiratory failure, unspecified with hypoxia QUALIFIERS: Chronicity: chronic Qualified Code(s): J96.11 - Chronic respiratory failure with hypoxia (5) Anticoagulated on Coumadin: CODE(S): Z51.81 - Encounter for therapeutic drug level monitoring; Z79.01 - buttermaker continuous churn (current) use of anticoagulants PLAN: Plan Healed. No new concerns reported at this time. Continue Adaptic, gauze, daily for 2 weeks and then stop. Consistent use of compression again discussed. Moisturize skin adequately. His questions were answered and he was advised to let us know if he had any further questions or concerns. Discharge from the wound center. This note was generated with get2play dictation software. It may contain incorrect words, spelling, and punctuation that were not noted in checking the note before signing.
== END 2024-12-05 11:00 | disposition home or self-care (01) ==
LOC: WC 09:15
PROVIDERS: Visit Provider Internal Medicine
DX: Z09 Encounter for follow-up examination after completed treatment for conditions other than malignant neoplasm (principal); L97.812 Non-pressure chronic ulcer of other part of right lower leg with fat layer exposed; J96.11 Chronic respiratory failure with hypoxia; I73.9 Peripheral vascular disease, unspecified; F17.200 Nicotine dependence, unspecified, uncomplicated; Z99.81 Dependence on supplemental oxygen; Z79.01 Long term (current) use of anticoagulants
CPT/HCPCS: 11042; 99213; G0463

== ENCOUNTER 2024-12-05 13:00 | Outpatient (RCR) | payer MEDICARE, MEDICAID, SELFPAY ==
[2024-10-30 10:54] VITALS: BMI 35.7
[2024-11-08 02:05] VITALS: BP 122/52; BP 160/56; BMI 35.7
--- NOTE | 2024-12-02 07:58 | PCM.PR.TP ---
Exercise - Initial Assessment Visit Session Number:: 24 Physician Prescribed Exercise Modalities: Treadmill, SciFit Stepper and SciFit Pro-II Ergometer Current METSs:: 1.9 Target HR:: 118 (94-118) Current RPD:: 3 Maximum Exercise HR:: 107 Resting Blood Pressure: 150/60 Maximum Exercise Blood Pressure: 160/68 Minimum SpO2 with exercise: 90 (Pt is using 3L of O2 with exercise.) EKG Type: NSR to ST Nutrition/Wt Mgmt - Initial Visit Session Number:: 24 Weight Management Admit Height:: 5 ft 8 in Admit Weight:: 238 lb Admit BMI:: 36.1 Nutrition/Wt Mgmt - 30-Day Visit Date of Eval: 12/02/24 Session Number:: 24 Weight Management Height: 5 ft 8 in Weight:: 238 lb BMI: 36.1 Nutrition/Wt Mgmt - 60-Day Visit Date of Eval: 12/02/24 Session Number:: 24 Weight Management Height: 5 ft 8 in Weight:: 238 lb BMI: 36.1 Weight Goals Progress:: Progressing (Pt has attended nutrition class. Low sodium heart healthy diet encouraged.) Nutrition/Wt Mgmt - 90-Day Visit Date of Eval: 12/02/24 Session Number:: 24 Weight Management Height: 5 ft 8 in Weight:: 238 lb BMI: 36.1 Weight Goals Progress:: Progressing (Pt has attended nutrition class. Low sodium heart healthy diet encouraged.) Nutrition/Wt Mgmt - Final Visit Session Number:: 24 Weight Management Height: 5 ft 8 in Weight:: 238 lb BMI: 36.1 Psychosocial - Initial Assess Visit Session Number:: 24 Problems/Goals History of Emotional Disorders: None Psychosocial Goals: 1. Patient is free from overwhelming symtoms of depression (or anxiety, 2. Identifies personal stressors & states the strategies for managing, 3. Identifies activities to decrease isolation and/or symptoms of, 4. Improved psychosocial coping skills., 5. Verbalizes coping strategies., 6. Adequate treatment of depression. and 7. Improved Q.O.L. Psychosocial Test Tool Used:: Pulmonary QOL and PHQ-9 Questionnaire Referral to Behavioral Health PS - Interventions: Yes: Attend Stress Management Classes Intervention/Plan: See List Interventions/Plan:: Assess stressors,coping strategies & signs of derpression on admission, Instruct/assist pt to develop coping & personal stress Mgt strategies, Refer to Behavioral Health if appropriate, Refer to Physician if appropriate, Instruct patient to recognize signs & symptoms of depression and Instruct patient to recog Comments:: Pt denies any psychosocial issues at this time Psychosocial - 30-Day Visit Date of Eval: 12/02/24 Session Number:: 24 Problems/Goals History of Emotional Disorders: None Psychosocial Goals: 1. Patient is free from overwhelming symtoms of depression (or anxiety, 2. Identifies personal stressors & states the strategies for managing, 3. Identifies activities to decrease isolation and/or symptoms of, 4. Improved psychosocial coping skills., 5. Verbalizes coping strategies., 6. Adequate treatment of depression. and 7. Improved Q.O.L. Psychosocial Test Tool Used:: Pulmonary QOL and PHQ-9 Questionnaire Referral to Behavioral Health PS - Interventions: Yes: Attend Stress Management Classes Plan Interventions/Plan:: Assess stressors,coping strategies & signs of derpression on admission, Instruct/assist pt to develop coping & personal stress Mgt strategies, Refer to Behavioral Health if appropriate, Refer to Physician if appropriate, Instruct patient to recognize signs & symptoms of depression and Instruct patient to recog Comments:: Pt denies any psychosocial issues at this time Psychosocial - 60-Day Visit Date of Eval: 12/02/24 Session Number:: 24 Problems/Goals History of Emotional Disorders: None Psychosocial Goals: 1. Patient is free from overwhelming symtoms of depression (or anxiety, 2. Identifies personal stressors & states the strategies for managing, 3. Identifies activities to decrease isolation and/or symptoms of, 4. Improved psychosocial coping skills., 5. Verbalizes coping strategies., 6. Adequate treatment of depression. and 7. Improved Q.O.L. Psychosocial Test Tool Used:: Pulmonary QOL and PHQ-9 Questionnaire Referral to Behavioral Health PS - Interventions: Yes: Attend Stress Management Classes Plan Interventions/Plan:: Assess stressors,coping strategies & signs of derpression on admission, Instruct/assist pt to develop coping & personal stress Mgt strategies, Refer to Behavioral Health if appropriate, Refer to Physician if appropriate, Instruct patient to recognize signs & symptoms of depression and Instruct patient to recog Comments:: Pt denies any psychosocial issues at this time Psychosocial - 90-Day Visit Date of Eval: 12/02/24 Session Number:: 24 Problems/Goals History of Emotional Disorders: None Psychosocial Goals: 1. Patient is free from overwhelming symtoms of depression (or anxiety, 2. Identifies personal stressors & states the strategies for managing, 3. Identifies activities to decrease isolation and/or symptoms of, 4. Improved psychosocial coping skills., 5. Verbalizes coping strategies., 6. Adequate treatment of depression. and 7. Improved Q.O.L. Psychosocial Test Tool Used:: Pulmonary QOL and PHQ-9 Questionnaire Referral to Behavioral Health PS - Interventions: Yes: Attend Stress Management Classes Plan Interventions/Plan:: Assess stressors,coping strategies & signs of derpression on admission, Instruct/assist pt to develop coping & personal stress Mgt strategies, Refer to Behavioral Health if appropriate, Refer to Physician if appropriate, Instruct patient to recognize signs & symptoms of depression and Instruct patient to recog Comments:: Pt denies any psychosocial issues at this time Psychosocial - Final Assess Visit Session Number:: 24 Problems/Goals History of Emotional Disorders: None Psychosocial Goals: 1. Patient is free from overwhelming symtoms of depression (or anxiety, 2. Identifies personal stressors & states the strategies for managing, 3. Identifies activities to decrease isolation and/or symptoms of, 4. Improved psychosocial coping skills., 5. Verbalizes coping strategies., 6. Adequate treatment of depression. and 7. Improved Q.O.L. Psychosocial Test Tool Used:: Pulmonary QOL and PHQ-9 Questionnaire Referral to Behavioral Health PS - Interventions: Yes: Attend Stress Management Classes Plan Interventions/Plan:: Assess stressors,coping strategies & signs of derpression on admission, Instruct/assist pt to develop coping & personal stress Mgt strategies, Refer to Behavioral Health if appropriate, Refer to Physician if appropriate, Instruct patient to recognize signs & symptoms of depression and Instruct patient to recog Comments:: Pt denies any psychosocial issues at this time Oxygen & Oxygen Titration Init Visit Session Number:: 24 Initial Assessment SpO2:: 90 (Pt is using 3L of O2 with exercise.) Oxygen & Oxygen Titration 30D Visit Date of Eval: 12/02/24 Session Number:: 24 Reassessment SpO2:: 90 (Pt is using 3L of O2 with exercise.) Oxygen & Oxygen Titration 60D Visit Date of Eval: 12/02/24 Session Number:: 24 Reassessment SpO2:: 90 (Pt is using 3L of O2 with exercise.) Oxygen & Oxygen Titration 90D Visit Date of Eval: 12/02/24 Session Number:: 24 Reassessment Oxygen & Oxygen Titration 90 days: Continuous Home Use and Oxygen w/activity SpO2:: 90 (Pt is using 3L of O2 with exercise.) Oxygen & Oxygen Titration ADAM Visit Date of Eval: 12/02/24 Session Number:: 24 Reassessment SpO2:: 90 (Pt is using 3L of O2 with exercise.) Core Components - Initial Visit Session Number:: 24 Hypertension Hypertension Diagnosis:: Hypertension ICD-10 I10 BP: 150/60 [employer] [employer] Hypertension Guidelines Blood Pressure: 160/68 Outcomes/Goals: Able to verbalize/achieve optimal blood pressure <130/80 and Incorporates diet changes & exercise for blood pressure control by DC Tobacco - Initial Assessment Tobacco Program Goals Stages of Change:: Maintenance (pt no longer smokes) Diabetes Diabetes:: No Core Components - 30 DAYS Visit Date of Eval: 12/02/24 Session Number:: 24 Hypertension Hypertension Diagnosis:: Hypertension ICD-10 I10 Resting Blood Pressure:: 150/60 [employer] [employer] Hypertension Guidelines Peak Exercise Blood Pressure:: 160/68 Outcomes/Goals: Able to verbalize/achieve optimal blood pressure <130/80 and Incorporates diet changes & exercise for blood pressure control by DC Interventions/plan: Instruct on optimal blood pressure, hypertension & medications and Instruct on effects of sodium, alcohol, stress, exercise &hypertension 30 day Reassessments:: Progressing (encouraging pt to eat a low sodium diet and weight loss to help lower BP.) Tobacco - 30-Day Tobacco Program Goals Stages of Change:: Maintenance (pt no longer smokes) Exacerbation Mgmt & Airway Clearance Bronchial Hygiene Plan: Yes: Pt demonstrates correctly for effective cough, Yes: Pt demo correct for CPT, Yes: Pt demo correct for device, Yes: Pt demo correct for NS nasal spray, Yes: Pt demo correct for sputum management, Yes: Pt demo correct for improved hydration, Yes: Pt demo correct for hand hygiene, Yes: Pt demo correct for evalute sputum, Yes: Pt demo correct for verbalize when to call MD and Yes: Pt demo correct for cleaning of respiratory equipment Medication Medication reassessment: Yes: Pt demonstrates correct technique timing for MDI, Yes: Pt demonstrates correct technique timing for DPI, Yes: Pt demonstrates correct technique timing for NEB and Yes: Pt demonstrates correct technique timing for spacer Diabetes Diabetes:: No Core Components - 60 DAYS Visit Date of Eval: 12/02/24 Session Number:: 24 Hypertension Hypertension Diagnosis:: Hypertension ICD-10 I10 Resting Blood Pressure:: 150/60 [employer] [employer] Hypertension Guidelines Peak Exercise Blood Pressure:: 160/68 Outcomes/Goals: Able to verbalize/achieve optimal blood pressure <130/80 and Incorporates diet changes & exercise for blood pressure control by DC Interventions/plan: Instruct on optimal blood pressure, hypertension & medications and Instruct on effects of sodium, alcohol, stress, exercise &hypertension 60 day Reassessments:: Progressing (encouraging pt to eat a low sodium diet and weight loss to help lower BP.) Tobacco - 60-Day Tobacco Program Goals Stages of Change:: Maintenance (pt no longer smokes) Exacerbation Mgmt & Airway Clearance Bronchial Hygiene Plan: Yes: Pt demonstrates correctly for effective cough, Yes: Pt demo correct for CPT, Yes: Pt demo correct for device, Yes: Pt demo correct for NS nasal spray, Yes: Pt demo correct for sputum management, Yes: Pt demo correct for improved hydration, Yes: Pt demo correct for hand hygiene, Yes: Pt demo correct for evalute sputum, Yes: Pt demo correct for verbalize when to call MD and Yes: Pt demo correct for cleaning of respiratory equipment Medication Medication reassessment: Yes: Pt demonstrates correct technique timing for MDI, Yes: Pt demonstrates correct technique timing for DPI, Yes: Pt demonstrates correct technique timing for NEB and Yes: Pt demonstrates correct technique timing for spacer Diabetes Diabetes:: No Core Components - 90 DAYS Visit Date of Eval: 12/02/24 Session Number:: 24 Hypertension Hypertension Diagnosis:: Hypertension ICD-10 I10 Resting Blood Pressure:: 150/60 [employer] [employer] Hypertension Guidelines Peak Exercise Blood Pressure:: 160/68 Outcomes/Goals: Able to verbalize/achieve optimal blood pressure <130/80 and Incorporates diet changes & exercise for blood pressure control by DC Interventions/plan: Instruct on optimal blood pressure, hypertension & medications and Instruct on effects of sodium, alcohol, stress, exercise &hypertension 90 day Reassessments:: Progressing (encouraging pt to eat a low sodium diet and weight loss to help lower BP.) Tobacco - 90-Day Tobacco Program Goals Stages of Change:: Maintenance (pt no longer smokes) Exacerbation Mgmt & Airway Clearance Reassessment: Demonstrates knowledge of O2 Rx at rest, Demonstrates knowledge of O2 Rx with exercise, Using O2 as prescribed, Has home O2 as prescribed and Uses port O2 as prescribed Bronchial Hygiene Plan: Yes: Pt demonstrates correctly for effective cough, Yes: Pt demo correct for CPT, Yes: Pt demo correct for device, Yes: Pt demo correct for NS nasal spray, Yes: Pt demo correct for sputum management, Yes: Pt demo correct for improved hydration, Yes: Pt demo correct for hand hygiene, Yes: Pt demo correct for evalute sputum, Yes: Pt demo correct for verbalize when to call MD and Yes: Pt demo correct for cleaning of respiratory equipment Medication Medication list reviewed:: Yes Taking medications 100% of the time:: Met Medication reassessment: Yes: Pt demonstrates correct technique timing for MDI, Yes: Pt demonstrates correct technique timing for DPI, Yes: Pt demonstrates correct technique timing for NEB and Yes: Pt demonstrates correct technique timing for spacer Diabetes Diabetes:: No Core Components - Final Visit Session Number:: 24 Hypertension Hypertension Diagnosis:: Hypertension ICD-10 I10 Resting Blood Pressure:: 150/60 [employer] [employer] Hypertension Guidelines Peak Exercise Blood Pressure:: 160/68 Outcomes/Goals: Able to verbalize/achieve optimal blood pressure <130/80 and Incorporates diet changes & exercise for blood pressure control by DC Tobacco - Final Tobacco Program Goals Stages of Change:: Maintenance (pt no longer smokes) Exacerbation Mgmt & Airway Clearance Bronchial Hygiene Plan: Yes: Pt demonstrates correctly for effective cough, Yes: Pt demo correct for CPT, Yes: Pt demo correct for device, Yes: Pt demo correct for NS nasal spray, Yes: Pt demo correct for sputum management, Yes: Pt demo correct for improved hydration, Yes: Pt demo correct for hand hygiene, Yes: Pt demo correct for evalute sputum, Yes: Pt demo correct for verbalize when to call MD and Yes: Pt demo correct for cleaning of respiratory equipment Medication Medication reassessment: Yes: Pt demonstrates correct technique timing for MDI, Yes: Pt demonstrates correct technique timing for DPI, Yes: Pt demonstrates correct technique timing for NEB and Yes: Pt demonstrates correct technique timing for spacer Diabetes Diabetes:: No Patient Health Questionnaire PHQ-9 Screening 90-Day Re-eval Assessment: 1. Little interest or pleasure in doing things: Not at all 2. Feeling down, depressed, or hopeless: Not at all 3. Trouble falling or staying asleep, or sleeping too much: Several days 4. Feeling tired or having little energy: Nearly every day 5. Poor appetite or overeating: Not at all 6. Feeling bad about yourself -- or that you are a failure or have let yourself or your family down: Not at all 7. Trouble concentrating on things, such as reading the newspaper or watching television: Not at all 8. Moving or speaking so slowly that other people could have noticed. Or the opposite - being so fidgety or restless that you have been moving around a lot more than usual: Not at all 9. Thoughts that you would be better off , or of hurting yourself in some way: Not at all How difficult have these problems made it for you to do your work, take care of things at home, or get along with other people?: Somewhat difficult Total Score: 4 Knowledge Questionaire (BCKQ) Information Information: [place] COPD Knowledge Questionnaire (BCKQ) This questionnaire is designed to find out what you know about your lung problem. It should be completed without help form anyone else. This usually takes between 10 and 20 minutes. Your answers will help us to find out what information you need to help you to understand and manage your lung condition. [place] [facility] [place] which you think is the correct answer. Nutrition Survey Nutrition Survey Instructions Scoring Instructions
[2024-12-02 08:10] VITALS: BP 150/60; BMI 36.1
[2024-12-02 08:15] VITALS: BP 150/60; BP 160/68; O2SAT 90
== END 2024-12-05 23:59 ==
LOC: PR 13:00
DX: J44.9 Chronic obstructive pulmonary disease, unspecified (principal)
CPT/HCPCS: 97150; 94626

== ENCOUNTER 2024-12-26 13:00 | Outpatient (RCR) | payer MEDICARE, MEDICAID, SELFPAY ==
[2024-12-02 08:10] VITALS: BMI 36.1
[2024-12-06 02:22] VITALS: BP 150/60; BP 160/68; BMI 36.1
--- NOTE | 2024-12-25 13:58 | PR.ITP_ITS ---
Exercise - Initial Assessment Visit Session Number:: 31 Physician Prescribed Exercise Modalities: Treadmill, SciFit Stepper and SciFit Pro-II Ergometer Current METSs:: 1.9 Resting Blood Pressure: 150/52 Maximum Exercise Blood Pressure: 160/66 Minimum SpO2 with exercise: 91 (Pt using 3 L with exercise.) EKG Type: NSR to ST w/ occas atrial bigeminy Nutrition/Wt Mgmt - Initial Visit Session Number:: 31 Weight Management Admit Height:: 5 ft 8 in Admit Weight:: 238 lb Admit BMI:: 36.1 Nutrition/Wt Mgmt - 30-Day Visit Date of Eval: 12/25/24 Session Number:: 31 Weight Management Height: 5 ft 8 in Weight:: 238 lb BMI: 36.1 Nutrition/Wt Mgmt - 60-Day Visit Session Number:: 31 Weight Management Height: 5 ft 8 in Weight:: 238 lb BMI: 36.1 Nutrition/Wt Mgmt - 90-Day Visit Session Number:: 31 Weight Management Height: 5 ft 8 in Weight:: 238 lb BMI: 36.1 Nutrition/Wt Mgmt - Final Visit Date of Eval: 12/25/24 Session Number:: 31 Weight Management Height: 5 ft 8 in Weight:: 238 lb BMI: 36.1 Weight Goals Progress:: Progressing (Pt has attended nutrition class. Pt understands the benefits of healthy eating. Pt has meals brought in to him and is thinking of switching to a healthier option at this time.) Psychosocial - Initial Assess Visit Session Number:: 31 Problems/Goals History of Emotional Disorders: None Psychosocial Test Tool Used:: Pulmonary QOL and PHQ-9 Questionnaire Referred to MD for counseling:: No Referral to Behavioral Health PS - Interventions: Yes: Attend Stress Management Classes Intervention/Plan: See List Interventions/Plan:: Assess stressors,coping strategies & signs of derpression on admission, Instruct/assist pt to develop coping & personal stress Mgt strategies, Refer to Behavioral Health if appropriate, Refer to Physician if appropriate, Instruct patient to recognize signs & symptoms of depression and Instruct patient to recog Comments:: Pt denies any psychosocial issues at this time. Psychosocial - 30-Day Visit Date of Eval: 12/25/24 Session Number:: 31 Problems/Goals History of Emotional Disorders: None Psychosocial Test Tool Used:: Pulmonary QOL and PHQ-9 Questionnaire Referred to MD for counseling:: No Referral to Behavioral Health PS - Interventions: Yes: Attend Stress Management Classes Plan Interventions/Plan:: Assess stressors,coping strategies & signs of derpression on admission, Instruct/assist pt to develop coping & personal stress Mgt strategies, Refer to Behavioral Health if appropriate, Refer to Physician if appropriate, Instruct patient to recognize signs & symptoms of depression and Instruct patient to recog Comments:: Pt denies any psychosocial issues at this time. Psychosocial - 60-Day Visit Session Number:: 31 Problems/Goals History of Emotional Disorders: None Psychosocial Test Tool Used:: Pulmonary QOL and PHQ-9 Questionnaire Referred to MD for counseling:: No Referral to Behavioral Health PS - Interventions: Yes: Attend Stress Management Classes Plan Interventions/Plan:: Assess stressors,coping strategies & signs of derpression on admission, Instruct/assist pt to develop coping & personal stress Mgt strategies, Refer to Behavioral Health if appropriate, Refer to Physician if appropriate, Instruct patient to recognize signs & symptoms of depression and Instruct patient to recog Comments:: Pt denies any psychosocial issues at this time. Psychosocial - 90-Day Visit Session Number:: 31 Problems/Goals History of Emotional Disorders: None Psychosocial Test Tool Used:: Pulmonary QOL and PHQ-9 Questionnaire Referred to MD for counseling:: No Referral to Behavioral Health PS - Interventions: Yes: Attend Stress Management Classes Plan Interventions/Plan:: Assess stressors,coping strategies & signs of derpression on admission, Instruct/assist pt to develop coping & personal stress Mgt strategies, Refer to Behavioral Health if appropriate, Refer to Physician if appropriate, Instruct patient to recognize signs & symptoms of depression and Instruct patient to recog Comments:: Pt denies any psychosocial issues at this time. Psychosocial - Final Assess Visit Date of Eval: 12/25/24 Session Number:: 31 Problems/Goals History of Emotional Disorders: None Psychosocial Test Tool Used:: Pulmonary QOL and PHQ-9 Questionnaire Referred to MD for counseling:: No Referral to Behavioral Health PS - Interventions: Yes: Attend Stress Management Classes Plan Interventions/Plan:: Assess stressors,coping strategies & signs of derpression on admission, Instruct/assist pt to develop coping & personal stress Mgt strategies, Refer to Behavioral Health if appropriate, Refer to Physician if appropriate, Instruct patient to recognize signs & symptoms of depression and Instruct patient to recog Comments:: Pt denies any psychosocial issues at this time. Oxygen & Oxygen Titration Init Visit Session Number:: 31 Initial Assessment SpO2:: 91 (Pt using 3 L with exercise.) Oxygen & Oxygen Titration 30D Visit Date of Eval: 12/25/24 Session Number:: 31 Reassessment SpO2:: 91 (Pt using 3 L with exercise.) Oxygen & Oxygen Titration 60D Visit Date of Eval: 12/25/24 Session Number:: 31 Reassessment SpO2:: 91 (Pt using 3 L with exercise.) Oxygen & Oxygen Titration 90D Visit Date of Eval: 12/25/24 Session Number:: 31 Reassessment SpO2:: 91 (Pt using 3 L with exercise.) Oxygen & Oxygen Titration ADAM Visit Date of Eval: 12/25/24 Session Number:: 31 Reassessment Oxygen & Oxygen Titration Final: Continuous Home Use and Oxygen w/activity SpO2:: 91 (Pt using 3 L with exercise.) Core Components - Initial Visit Session Number:: 31 Hypertension Hypertension Diagnosis:: Hypertension ICD-10 I10 BP: 150/52 [employer] Hypertension Guidelines Blood Pressure: 160/66 Outcomes/Goals: Able to verbalize/achieve optimal blood pressure <130/80 and Incorporates diet changes & exercise for blood pressure control by DC Tobacco - Initial Assessment Tobacco Program Goals Stages of Change:: Maintenance (Pt no longer smokes) Do you have family support?: Yes Tobacco Use: Non-smoker Diabetes Diabetes:: No Core Components - 30 DAYS Visit Date of Eval: 12/25/24 Session Number:: 31 Hypertension Hypertension Diagnosis:: Hypertension ICD-10 I10 Resting Blood Pressure:: 150/52 [employer] Hypertension Guidelines Peak Exercise Blood Pressure:: 160/66 Outcomes/Goals: Able to verbalize/achieve optimal blood pressure <130/80 and Incorporates diet changes & exercise for blood pressure control by DC Tobacco - 30-Day Tobacco Program Goals Stages of Change:: Maintenance (Pt no longer smokes) Learning Barriers: Participates in education Do you have family support?: Yes Tobacco Use: Non-smoker Exacerbation Mgmt & Airway Clearance Bronchial Hygiene Plan: Yes: Pt demonstrates correctly for effective cough, Yes: Pt demo correct for CPT, Yes: Pt demo correct for device, Yes: Pt demo correct for NS nasal spray, Yes: Pt demo correct for sputum management, Yes: Pt demo correct for improved hydration, Yes: Pt demo correct for hand hygiene, Yes: Pt demo correct for evalute sputum, Yes: Pt demo correct for verbalize when to call MD and Yes: Pt demo correct for cleaning of respiratory equipment Medication Medication reassessment: Yes: Pt demonstrates correct technique timing for MDI, Yes: Pt demonstrates correct technique timing for DPI, Yes: Pt demonstrates correct technique timing for NEB and Yes: Pt demonstrates correct technique timing for spacer Diabetes Diabetes:: No Core Components - 60 DAYS Visit Session Number:: 31 Hypertension Hypertension Diagnosis:: Hypertension ICD-10 I10 Resting Blood Pressure:: 150/52 [employer] Hypertension Guidelines Peak Exercise Blood Pressure:: 160/66 Outcomes/Goals: Able to verbalize/achieve optimal blood pressure <130/80 and Incorporates diet changes & exercise for blood pressure control by DC Tobacco - 60-Day Tobacco Program Goals Stages of Change:: Maintenance (Pt no longer smokes) Learning Barriers: Participates in education Do you have family support?: Yes Tobacco Use: Non-smoker Exacerbation Mgmt & Airway Clearance Bronchial Hygiene Plan: Yes: Pt demonstrates correctly for effective cough, Yes: Pt demo correct for CPT, Yes: Pt demo correct for device, Yes: Pt demo correct for NS nasal spray, Yes: Pt demo correct for sputum management, Yes: Pt demo correct for improved hydration, Yes: Pt demo correct for hand hygiene, Yes: Pt demo correct for evalute sputum, Yes: Pt demo correct for verbalize when to call MD and Yes: Pt demo correct for cleaning of respiratory equipment Medication Medication reassessment: Yes: Pt demonstrates correct technique timing for MDI, Yes: Pt demonstrates correct technique timing for DPI, Yes: Pt demonstrates correct technique timing for NEB and Yes: Pt demonstrates correct technique timing for spacer Diabetes Diabetes:: No Core Components - 90 DAYS Visit Session Number:: 31 Hypertension Hypertension Diagnosis:: Hypertension ICD-10 I10 Resting Blood Pressure:: 150/52 [employer] Hypertension Guidelines Peak Exercise Blood Pressure:: 160/66 Outcomes/Goals: Able to verbalize/achieve optimal blood pressure <130/80 and Incorporates diet changes & exercise for blood pressure control by DC Tobacco - 90-Day Tobacco Program Goals Stages of Change:: Maintenance (Pt no longer smokes) Learning Barriers: Participates in education Do you have family support?: Yes Tobacco Use: Non-smoker Exacerbation Mgmt & Airway Clearance Bronchial Hygiene Plan: Yes: Pt demonstrates correctly for effective cough, Yes: Pt demo correct for CPT, Yes: Pt demo correct for device, Yes: Pt demo correct for NS nasal spray, Yes: Pt demo correct for sputum management, Yes: Pt demo correct for improved hydration, Yes: Pt demo correct for hand hygiene, Yes: Pt demo correct for evalute sputum, Yes: Pt demo correct for verbalize when to call MD and Yes: Pt demo correct for cleaning of respiratory equipment Medication Medication reassessment: Yes: Pt demonstrates correct technique timing for MDI, Yes: Pt demonstrates correct technique timing for DPI, Yes: Pt demonstrates correct technique timing for NEB and Yes: Pt demonstrates correct technique timing for spacer Diabetes Diabetes:: No Core Components - Final Visit Date of Eval: 12/25/24 Session Number:: 31 Hypertension Hypertension Diagnosis:: Hypertension ICD-10 I10 Resting Blood Pressure:: 150/52 [employer] Hypertension Guidelines Peak Exercise Blood Pressure:: 160/66 Outcomes/Goals: Able to verbalize/achieve optimal blood pressure <130/80 and Incorporates diet changes & exercise for blood pressure control by DC Tobacco - Final Tobacco Program Goals Stages of Change:: Maintenance (Pt no longer smokes) Learning Barriers: Participates in education Do you have family support?: Yes Tobacco Use: Non-smoker Exacerbation Mgmt & Airway Clearance Final Assessment: Demonstrates knowledge of O2 Rx at rest, Demonstrates knowledge of O2 Rx with exercise, Using O2 as prescribed, Has home O2 as prescribed and Uses port O2 as prescribed Bronchial Hygiene Plan: Yes: Pt demonstrates correctly for effective cough, Yes: Pt demo correct for CPT, Yes: Pt demo correct for device, Yes: Pt demo correct for NS nasal spray, Yes: Pt demo correct for sputum management, Yes: Pt demo correct for improved hydration, Yes: Pt demo correct for hand hygiene, Yes: Pt demo correct for evalute sputum, Yes: Pt demo correct for verbalize when to call MD and Yes: Pt demo correct for cleaning of respiratory equipment Medication Medication list reviewed:: Yes Taking medications 100% of the time:: Met Medication reassessment: Yes: Pt demonstrates correct technique timing for MDI, Yes: Pt demonstrates correct technique timing for DPI, Yes: Pt demonstrates correct technique timing for NEB and Yes: Pt demonstrates correct technique timing for spacer Diabetes Diabetes:: No Patient Health Questionnaire PHQ-9 Screening Discharge Assessment: 1. Little interest or pleasure in doing things: Not at all 2. Feeling down, depressed, or hopeless: Not at all 3. Trouble falling or staying asleep, or sleeping too much: Several days 4. Feeling tired or having little energy: Nearly every day 5. Poor appetite or overeating: Not at all 6. Feeling bad about yourself -- or that you are a failure or have let yourself or your family down: Not at all 7. Trouble concentrating on things, such as reading the newspaper or watching television: Not at all 8. Moving or speaking so slowly that other people could have noticed. Or the opposite - being so fidgety or restless that you have been moving around a lot more than usual: Not at all 9. Thoughts that you would be better off , or of hurting yourself in some way: Not at all How difficult have these problems made it for you to do your work, take care of things at home, or get along with other people?: Somewhat difficult Total Score: 4 Knowledge Questionaire (BCKQ) Information Information: [place] COPD Knowledge Questionnaire (BCKQ) This questionnaire is designed to find out what you know about your lung problem. It should be completed without help form anyone else. This usually takes between 10 and 20 minutes. Your answers will help us to find out what information you need to help you to understand and manage your lung condition. [place] which you think is the correct answer. Nutrition Survey Nutrition Survey Instructions Scoring Instructions
[2024-12-25 14:12] VITALS: BP 150/52; BP 160/66; O2SAT 91; BMI 36.1
== END 2025-01-05 23:59 ==
LOC: PR 13:00
DX: J44.9 Chronic obstructive pulmonary disease, unspecified (principal)
CPT/HCPCS: 97150; 94626

== ENCOUNTER 2025-01-19 13:00 | Outpatient (RCR) | payer MEDICARE, MEDICAID, SELFPAY ==
[2024-12-25 14:12] VITALS: BMI 36.1
[2025-01-06 00:54] VITALS: BP 150/52; BP 160/66; BMI 36.1
== END 2025-02-04 23:59 ==
LOC: PR 13:00
DX: J44.9 Chronic obstructive pulmonary disease, unspecified (principal)
CPT/HCPCS: 97150; 94626